=== PATIENT | male | born 1955 | race Caucasian/White ===

== ENCOUNTER 2017-09-17 18:28 | Inpatient (IN) ==
--- NOTE | 2017-09-17 19:04 | Emergency Department Note ---
ED Disposition Clinical Impression: Acute kidney injury (nontraumatic), Alcoholic hepatitis without ascites Cellulitis Qualifiers: Site of cellulitis: extremity Site of cellulitis of extremity: lower extremity Laterality: unspecified laterality Qualified Code(s): L03.119 - Cellulitis of unspecified part of limb Disposition: Still a Patient Condition on Discharge: Fair Referrals: Noemy Hawthorne PA [Primary Care Provider] - Time of Disposition: 20:01 - Critical Care Critical Care Time: No Attestation: On 09/17/17, the high probability of a clinically significant, sudden or life threatening deterioration of the following system(s) required my full and direct attention, intervention and personal management. The time I documented below is in addition to time spent performing reported procedures but includes the following listed in this critical care notation. Medical Decision Making - Medical Records Medical records reviewed: Yes: I reviewed the patient's medical records. - Layo Inquiry Pt receiving controlled substance: No Layo was queried for this patient: No Vital Signs: 09/17/17 18:28 Temperature 98.6 F Temperature Source Oral Pulse Rate [Right Radial] 113 H Respiratory Rate 18 Blood Pressure [Right Arm] 95/58 Blood Pressure Mean [Right Arm] 70 Blood Pressure Source [Right Arm] Automatic Cuff Blood Pressure Position [Right Arm] Sitting 02 Sat by Pulse Oximetry 94 L Oxygen Delivery Method Room Air - Lab Data Lab results reviewed: Yes: I reviewed the patient's lab results. Lab Results 09/17/17 19:05: WBC 11.9 H, RBC 4.25 L, Hgb 13.9 L, Hct 41.3 L, MCV 97.2 H, MCH 32.8 H, MCHC 33.7, RDW 12.7, Plt Count 237, MPV 8.6, Neut % (Auto) 73.1, Lymph % (Auto) 19.9, [place] % (Auto) 5.6, Eos % (Auto) 1.0, Baso % (Auto) 0.4, Neut # ( Auto) 8.7 H, Lymph # (Auto) 2.4, [place] # (Auto) 0.7, Eos # (Auto) 0.1, Baso # ( Auto) 0.1 09/17/17 19:05: Sodium 132 L, Potassium 4.8, Chloride 98, Carbon Dioxide 20 L, Anion Gap 18.8 H, BUN 27 H, Creatinine 2.32 H, Estimated Creat Clear 48, Estimated GFR 29 L, Est GFR ( Amer) 35 L, Glucose 128 H, Calcium 9.2, Total Bilirubin 0.5, AST 91 H, ALT 84 H, Alkaline Phosphatase 138 H, Total Protein 8.4 H, Albumin 3.0 L, Globulin 5.4 H, Albumin/Globulin Ratio 0.6 L 09/17/17 19:05: Lactic Acid 1.9 09/17/17 19:05: Plasma/Serum Alcohol 0 Result diagrams: 09/17/17 19:05 09/17/17 19:05 Orders (Tests/Meds): ORDERS Category Date Time Status Tibia/fibula XR left 2 views [XR tibia fibula LT 2V] Exams 09/17/17 18:48 Taken Stat XR tibia fibula RT 2V Stat Exams 09/17/17 18:48 Taken Urinalysis and Microscopic Stat Lab 09/17/17 19:21 Ordered Blood Culture Stat Micro 09/17/17 19:08 Received Wound Culture and Gram Stain Stat Micro 09/17/17 19:23 Received Wound Culture and Gram Stain Stat Micro 09/17/17 19:23 Received - Radiology Data #1 Image(s): Tib/Fib Image Reviewed: Yes I reviewed the patient's radiology results, Yes I reviewed the patient's radiology image Preliminary Findings: Normal/NAD Skin/Abscess/FB HPI - General Chief complaint: Extremity Injury, Lower Stated complaint: Right leg pain Time Seen by Provider: 09/17/17 19:04 Mode of Arrival: Wheelchair Limitations: Physical Limitations Description of Symptoms (Recalled from ER Triage Doc. by RN): BILATERALLY FEET SWELLING, RED, VERY MALODOROUS. YELLOW AND WHITE SCABS NOTED. PT UNABLE TO WALK. - History of Present Illness HPI narrative: Pt comes to the ED with redness and swelling of both feet and both lower legs with foul smelling drainage for about 4 to 5 weeks. He normally sees one of Dr. Webster's PHYSIOTHERAPY AIDE 's but has not seen anyone in about 4 months and he says this started about 3 to 4 months ago. He has not been running any fevers and the family talked him into coming to the ED today but he says he can get up and go to the bathroom by himself but family says he has kept his pants and shoes and socks on for the past 3 to 4 months and they were not aware of him having any problem until they saw him today. He has never been a smoker but he does drink about 4 to5 24 ounce beers each day . he denies any fever at all and no SOA MD complaint: rash, other (cellulitis of both lower legs with foul smelling drainage but says he is not a diabetic) - Related Data Home Medications Medication Instructions Recorded Confirmed atorvastatin 10 mg tablet PO 30 Days #30 04/10/17 ergocalciferol (vitamin D2) 50,000 PO 28 Days #8 04/10/17 unit capsule Previous Rx's Medication Instructions Recorded calcium carbonate-vitamin D3 600 1 cap PO .COMPLEX 90 Days #90 cap 07/05/17 mg (1,500 mg)-400 unit capsule ergocalciferol (vitamin D2) 50,000 50,000 unit PO QWEEK 90 Days #14 08/14/17 unit capsule cap losartan 100 mg tablet 100 mg PO DAILY #90 tab 08/14/17 Allergies Allergy/AdvReac Type Severity Reaction Status Date / Time No Known Allergies Allergy Verified 09/17/17 18:47 [facility] History I have reviewed the patient's past medical history: Yes Medical History: Reports:: Cancer (SKIN CANCER ON HEAD), Hyperlipidemia, Hypertension Other Surgeries: Yes: Skin Cancer Excision - Social History Smoking Status: Never smoker Alcohol Intake: current Alcohol Intake Frequency:: 3 or more drinks per day Substance Use Type: denies use - Psychiatric History Expresses thoughts of harming self/others: None Suicide Plan Description: No Plan Family Hx:: Hypertension, Hyperlipidemia, Cancer ROS Obtained: Yes All systems reviewed & no additional complaints Physical Exam - General General appearance: alert, in no apparent distress - Head Head exam: atraumatic - Eye Eye exam: Present: normal appearance - ENT ENT exam: Present: normal exam - Neck Neck exam: Present: normal inspection - Chest Chest inspection: Present: normal inspection - Respiratory Respiratory exam: Present: normal lung sounds bilaterally - Cardiovascular Cardiovascular exam: Present: regular rate, normal rhythm - Abdominal Exam Abdominal exam: Present: soft - Neurological Exam Neurological exam: Present: alert, oriented X3 - Psychiatric Psychiatric exam: Present: normal affect - Skin Skin exam: Present: other (cellulitis and swelling of both lower legs with purulent weeping from both legs and both feet...I can not palpate pules in feet but will check with Doppler)
[2017-09-17 19:24] LABS: Basophils # 0.1 K/mm3 (0-0.2); Basophils % 0.4 % (0.1-2.0); Eosinophils # 0.1 K/mm3 (0.0-0.4); Hematocrit 41.3 % (42.0-52.0); Hemoglobin 13.9 g/dL (14.1-18.0); Lymphocytes # 2.4 K/mm3 (0.7-4.5); Lymphocytes % 19.9 K/mm3 (10-50); Mean Corpuscular HGB Conc 33.7 g/dL (31.8-35.4); Mean Corpuscular Hemoglobin 32.8 pg (27.0-31.2); Mean Corpuscular Volume 97.2 fl (80-94); Mean Platelet Volume 8.6 fl (7.4-10.4); Monocytes # 0.7 K/mm3 (0.1-1.0); Monocytes % 5.6 % (1.7-9.3); Neutrophils # 8.7 K/mm3 (1.8-7.8); Neutrophils % 73.1 % (37.0-80.0); Platelet Count 237 K/mm3 (142-424); Red Blood Count 4.25 M/mm3 (4.60-6.20); Red Cell Distribution Width 12.7 % (11.5-17.5); White Blood Count 11.9 K/mm3 (4.8-10.8)
[2017-09-17 19:41] LABS: Albumin/Globulin Ratio 0.6 (1.1-1.8); Anion Gap 18.8 mEq/L (5-15); Bilirubin,Total 0.5 mg/dL (0.2-1.0); Calcium 9.2 mg/dL (8.5-10.1); Globulin 5.4 gm/dl (1.3-3.2); Potassium 4.8 mmoL/L (3.5-5.1); Total Protein,Serum 8.4 gm/dL (6.4-8.2)
--- NOTE | 2017-09-17 20:27 | History & Physical Report ---
*Admission Date: 09/17/17 *Chief complaint: swollen legs *History of present illness: this wm with progressive swollen legst comes to the ED with redness and swelling of both feet and both lower legs with foul smelling drainage for about 4 to 5 weeks. He normally sees one of Dr. Webster's [employer] P[employer] CEMENTER 's but has not seen anyone in about 4 months and he says this started about 3 to 4 months ago. He has not been running any fevers and the family talked him into coming to the ED today but he says he can get up and go to the bathroom by himself but family says he has kept his pants and shoes and socks on for the past 3 to 4 months and they were not aware of him having any problem until they saw him today. He has never been a smoker but he does drink about 4 to5 24 ounce beers each day . he denies any fever at all and no SOA MD complaint: rash, other (cellulitis of both lower legs with foul smelling drainage but says he is not a diabetic) [facility] History I have reviewed the patient's past medical history: Yes Medical History: Reports:: Cancer (SKIN CANCER ON HEAD), Hyperlipidemia, Hypertension Other Surgeries: Yes: Skin Cancer Excision - *Social History Smoking Status: Never smoker Alcohol Intake: current Alcohol Intake Frequency:: 3 or more drinks per day Substance Use Type: denies use - Psychiatric History Expresses thoughts of harming self/others: None Suicide Plan Description: No Plan *Family Hx:: Hypertension, Hyperlipidemia, Cancer Review of Systems - Review of Systems Review of systems:: pertinent systems reviewed and negative unless documented below - Constitutional Denies fever(s) - Eyes Denies change in vision - ENT Denies headache(s), Denies dizziness - *Cardiovascular Reports leg swelling, Denies chest pain - *Respiratory Denies cough, Denies shortness of breath, Denies coughing up blood - *Gastrointestinal Denies abdominal pain - *Genitourinary Denies blood in urine - *Musculoskeletal Reports joint pain - Integumentary/Breasts Reports other (changes lower ext ), Denies rash - *Neurologic Denies seizure-like activity - Psychiatric Denies thoughts of hurting/killing yourself Meds Home Medications Medication Instructions Recorded Confirmed Type atorvastatin 10 mg tablet PO 30 Days #30 04/10/17 History ergocalciferol (vitamin D2) 50,000 PO 28 Days #8 04/10/17 History unit capsule Allergies Allergy/AdvReac Type Severity Reaction Status Date / Time No Known Allergies Allergy Verified 09/17/17 18:47 Exam Vital signs and Labs for Last 24 Hours: Temp Pulse Resp BP Pulse Ox 98.6 F 113 H 18 95/58 94 L 09/17/17 18:28 09/17/17 18:28 09/17/17 18:28 09/17/17 18:28 09/17/17 18:28 Laboratory Results - last 24 hr 09/17/17 19:05: WBC 11.9 H, RBC 4.25 L, Hgb 13.9 L, Hct 41.3 L, MCV 97.2 H, MCH 32.8 H, MCHC 33.7, RDW 12.7, Plt Count 237, MPV 8.6, Neut % (Auto) 73.1, Lymph % (Auto) 19.9, [place] % (Auto) 5.6, Eos % (Auto) 1.0, Baso % (Auto) 0.4, Neut # ( Auto) 8.7 H, Lymph # (Auto) 2.4, [place] # (Auto) 0.7, Eos # (Auto) 0.1, Baso # ( Auto) 0.1 09/17/17 19:05: Sodium 132 L, Potassium 4.8, Chloride 98, Carbon Dioxide 20 L, Anion Gap 18.8 H, BUN 27 H, Creatinine 2.32 H, Estimated Creat Clear 48, Estimated GFR 29 L, Est GFR ( Amer) 35 L, Glucose 128 H, Calcium 9.2, Total Bilirubin 0.5, AST 91 H, ALT 84 H, Alkaline Phosphatase 138 H, Total Protein 8.4 H, Albumin 3.0 L, Globulin 5.4 H, Albumin/Globulin Ratio 0.6 L 09/17/17 19:05: Lactic Acid 1.9 09/17/17 19:05: Plasma/Serum Alcohol 0 I & O for Last 24 hours: Intake & Output 09/15/17 09/16/17 09/17/17 09/18/17 11:59 11:59 11:59 11:59 Weight 222 lb - Constitutional no acute distress, obese - *Routine HEENT Exam Head: Present: normocephalic Eye: Present: EOMI, PERRL. Absent: conjunctival icterus ENT: Present: mucous membranes dry - *Routine Neck Exam Present: supple - *Routine Respiratory Exam Present: decreased breath sounds - *Routine Cardiovascular Exam Present: RRR, murmur - *Routine Abdominal Exam Present: soft - *Routine Extremities Exam Present: edema Comments: reddness and swelling bilat - dec pulse - *Routine Skin Exam Present: erythema - *Routine Neurological Exam Present: alert, oriented X3, CN II-XII intact - Routine Psychiatric Exam Present: normal affect H&P: Result - Labs Labs: Short CBC 09/17/17 Range/Units 19:05 WBC 11.9 H (4.8-10.8) K/mm3 Hgb 13.9 L (14.1-18.0) g/dL Hct 41.3 L (42.0-52.0) % Plt Count 237 (142-424) K/mm3 BMP 09/17/17 19:05 Sodium 132 L Potassium 4.8 Chloride 98 Carbon Dioxide 20 L BUN 27 H Creatinine 2.32 H Glucose 128 H Calcium 9.2 Liver Function 09/17/17 Range/Units 19:05 Total Bilirubin 0.5 (0.2-1.0) mg/dL AST 91 H (15-37) U/L ALT 84 H (12-78) U/L Alkaline Phosphatase 138 H (46-116) U/L Albumin 3.0 L (3.4-5.0) gm/dL Assessment and Plan (1) Renal insufficiency Current visit: Yes Status: Acute Category: Medical Code(s): N28.9 - Disorder of kidney and ureter, unspecified (2) Cellulitis Current visit: Yes Status: Acute Qualifiers: Site of cellulitis: extremity Site of cellulitis of extremity: lower extremity Laterality: unspecified laterality Qualified Code(s): L03.119 - Cellulitis of unspecified part of limb Category: Medical Code(s): L03.90 - Cellulitis, unspecified (3) Alcohol abuse Current visit: Yes Status: Acute Category: Social Hx Code(s): F10.10 - Alcohol abuse, uncomplicated
[2017-09-18 00:30] LABS: Microscopic, Urine URINE MICROSCOPIC (MICROSCOPIC)
[2017-09-18 00:44] LABS: Appearance,Urine CLEAR (Clear); Bilirubin,Urine Negative (Negative); Blood, Urine Negative (Negative); Color,Urine YELLOW (Yellow); Glucose,Urine (UA) Negative (Negative); Ketones,Urine Negative (Negative); Leukocyte Esterase,Urine Negative (Negative); Protein,Urine Negative (Negative); Specific Gravity, Urine <= 1.005 (1.005-1.030); Urobilinogen,Urine 0.2 EU/dl (0.2)
[2017-09-18 00:48] LABS: Amorphous Sediment,Urine Trace /lpf
[2017-09-18 06:00] LABS: Basophils % 0.2 % (0.1-2.0); Eosinophils # 0.1 K/mm3 (0.0-0.4); Eosinophils % 1.1 % (0.1-12.0); Hematocrit 33.5 % (42.0-52.0); Lymphocytes # 1.9 K/mm3 (0.7-4.5); Lymphocytes % 20.8 K/mm3 (10-50); Mean Corpuscular HGB Conc 33.1 g/dL (31.8-35.4); Mean Corpuscular Hemoglobin 32.4 pg (27.0-31.2); Mean Corpuscular Volume 97.9 fl (80-94); Mean Platelet Volume 8.6 fl (7.4-10.4); Monocytes # 0.7 K/mm3 (0.1-1.0); Monocytes % 8.2 % (1.7-9.3); Neutrophils # 6.3 K/mm3 (1.8-7.8); Neutrophils % 69.8 % (37.0-80.0); Platelet Count 184 K/mm3 (142-424); Red Blood Count 3.43 M/mm3 (4.60-6.20); Red Cell Distribution Width 12.6 % (11.5-17.5); White Blood Count 9.1 K/mm3 (4.8-10.8)
[2017-09-18 06:01] LABS: Hemoglobin 11.1 g/dL (14.1-18.0)
[2017-09-18 06:12] LABS: Anion Gap 14.9 mEq/L (5-15); Calcium 8.3 mg/dL (8.5-10.1); Potassium 4.9 mmoL/L (3.5-5.1)
--- NOTE | 2017-09-18 07:29 | Pharmacy Consult Notes ---
[facility] Pharmacy VTE Monitoring - Patient Demographics Admission date: 09/17/17 Report Date: 09/18/17 Time: 07:29 Allergies/Adverse Reactions: Patient Allergies No Known Allergies Allergy (Verified 09/17/17 18:47) Height: 1.65 m Weight: 112.094 kg Patient Problems: Current Active Problems Cellulitis (Acute) Acute kidney injury (nontraumatic) (Acute) Alcoholic hepatitis without ascites (Acute) Renal insufficiency (Acute) Alcohol abuse (Acute) - VTE Risk Labs: VTE Related Lab Results Hgb 11.1 g/dL (14.1-18.0) L D 09/18/17 05:35 Hct 33.5 % (42.0-52.0) L 09/18/17 05:35 Plt Count 184 K/mm3 (142-424) 09/18/17 05:35 BUN 27 mg/dL (7-18) H 09/18/17 05:35 Creatinine 2.10 mg/dL (0.70-1.30) H 09/18/17 05:35 Estimated Creat Clear 59 mL/min (0-300) 09/18/17 05:35 VTE Score: 5 VTE Risk Level: Low Risk - Prophylaxis VTE Prophylaxis Ordered?: Yes Types of VTE Prophylaxis: Pharmacological Pharmacologic Type: Enoxaparin - VTE Diagnosis Confirmed Treatment or plan recommended: Continue Current Treatment
--- NOTE | 2017-09-18 08:22 | Progress Note ---
Internal Medicine - PN: Subj *Date: 09/18/17 *Time: 08:18 Interval history: doing better but still has sig ambulation issues Exam Vital signs and Labs for Last 24 Hours: Temp Pulse Resp BP Pulse Ox 98.4 F 91 H 18 108/44 95 09/18/17 07:38 09/18/17 07:38 09/18/17 07:38 09/18/17 07:38 09/18/17 07:38 Laboratory Results - last 24 hr 09/17/17 19:05: WBC 11.9 H, RBC 4.25 L, Hgb 13.9 L, Hct 41.3 L, MCV 97.2 H, MCH 32.8 H, MCHC 33.7, RDW 12.7, Plt Count 237, MPV 8.6, Neut % (Auto) 73.1, Lymph % (Auto) 19.9, [place] % (Auto) 5.6, Eos % (Auto) 1.0, Baso % (Auto) 0.4, Neut # ( Auto) 8.7 H, Lymph # (Auto) 2.4, [place] # (Auto) 0.7, Eos # (Auto) 0.1, Baso # ( Auto) 0.1 09/17/17 19:05: Sodium 132 L, Potassium 4.8, Chloride 98, Carbon Dioxide 20 L, Anion Gap 18.8 H, BUN 27 H, Creatinine 2.32 H, Estimated Creat Clear 48, Estimated GFR 29 L, Est GFR ( Amer) 35 L, Glucose 128 H, Calcium 9.2, Total Bilirubin 0.5, AST 91 H, ALT 84 H, Alkaline Phosphatase 138 H, Total Protein 8.4 H, Albumin 3.0 L, Globulin 5.4 H, Albumin/Globulin Ratio 0.6 L 09/17/17 19:05: Lactic Acid 1.9 09/17/17 19:05: Plasma/Serum Alcohol 0 09/18/17 00:15: Urine Color Yellow, Urine Appearance Clear, Urine pH 6.0, Ur Specific [place] <= 1.005, Urine Protein Negative, Urine Glucose (UA) Negative, Urine Ketones Negative, Urine Blood Negative, Urine Nitrate Negative, Urine Bilirubin Negative, Urine Urobilinogen 0.2, Ur Leukocyte Esterase Negative, Urine WBC 5-10, Amorphous Sediment Trace 09/18/17 05:35: WBC 9.1, RBC 3.43 L, Hgb 11.1 L D, Hct 33.5 L, MCV 97.9 H, MCH 32.4 H, MCHC 33.1, RDW 12.6, Plt Count 184, MPV 8.6, Neut % (Auto) 69.8, Lymph % (Auto) 20.8, [place] % (Auto) 8.2, Eos % (Auto) 1.1, Baso % (Auto) 0.2, Neut # ( Auto) 6.3, Lymph # (Auto) 1.9, [place] # (Auto) 0.7, Eos # (Auto) 0.1, Baso # (Auto ) 0.0 09/18/17 05:35: Sodium 135 L, Potassium 4.9, Chloride 101, Carbon Dioxide 24, Anion Gap 14.9, BUN 27 H, Creatinine 2.10 H, Estimated Creat Clear 59, Estimated GFR 32 L, Est GFR ( Amer) 39 L, Glucose 110 H, Calcium 8.3 L, Magnesium 2.1 I & O for Last 24 hours: Intake & Output 09/15/17 09/16/17 09/17/17 09/18/17 11:59 11:59 11:59 11:59 Output Total 550 / 550 Balance -550 / -550 Weight 247 lb 2 oz Microbiology Reports for the Last 24 Hours: Microbiology 09/17/17 19:23 Leg,Right Gram Stain - Final 09/17/17 19:23 Leg,Right Wound Culture - Preliminary 09/17/17 19:23 Leg,Left Gram Stain - Final 09/17/17 19:23 Leg,Left Wound Culture - Preliminary Gram Negative Rods Gram Negative Rods#2 - Constitutional no acute distress - *Routine HEENT Exam Head: Present: normocephalic Eye: Present: EOMI, PERRL ENT: Present: mucous membranes dry - *Routine Neck Exam Present: supple - *Routine Respiratory Exam Absent: decreased breath sounds - *Routine Cardiovascular Exam Present: RRR, murmur - *Routine Abdominal Exam Present: soft - *Routine Extremities Exam Present: edema - *Routine Skin Exam Comments: sig toe nail - *Routine Neurological Exam Present: oriented X3, CN II-XII intact - Routine Psychiatric Exam Present: normal affect Assessment and Plan (1) Renal insufficiency Current visit: Yes Status: Acute Category: Medical Code(s): N28.9 - Disorder of kidney and ureter, unspecified (2) Cellulitis Current visit: Yes Status: Acute Qualifiers: Site of cellulitis: extremity Site of cellulitis of extremity: lower extremity Laterality: unspecified laterality Qualified Code(s): L03.119 - Cellulitis of unspecified part of limb Category: Medical Code(s): L03.90 - Cellulitis, unspecified (3) Alcohol abuse Current visit: Yes Status: Acute Category: Social Hx Code(s): F10.10 - Alcohol abuse, uncomplicated
--- NOTE | 2017-09-18 09:31 | Pharmacy Consult Notes ---
- Pharmacy Consult Date: 09/18/17 Time: 09:30 Referring provider: DR. SULTANA Reason for Consult:: VANCOMYCIN DOSING Allergies and ADEs:: Allergies Allergy/AdvReac Type Severity Reaction Status Date / Time No Known Allergies Allergy Verified 09/17/17 18:47 Home Medications:: Home Medications Medication Instructions Recorded Confirmed Type atorvastatin 10 mg tablet 10 mg PO DAILY 30 Days #30 04/10/17 09/17/17 History Metoprolol Succinate 25 mg PO DAILY 09/17/17 09/17/17 History Calcium Carbonate/Vitamin D3 1 each PO DAILY 09/18/17 09/18/17 History [Calcium 600 + Vit D 400 Softgl] Ergocalciferol (Vitamin D2) 50,000 unit PO WEEKLY 09/18/17 09/18/17 History [Vitamin D2] Losartan Potassium [Cozaar] 100 mg PO DAILY 09/18/17 09/18/17 History Height: 1.65 m Weight: 112.094 kg Laboratory Results:: Laboratory Results - last 24 hr 09/17/17 19:05: WBC 11.9 H, RBC 4.25 L, Hgb 13.9 L, Hct 41.3 L, MCV 97.2 H, MCH 32.8 H, MCHC 33.7, RDW 12.7, Plt Count 237, MPV 8.6, Neut % (Auto) 73.1, Lymph % (Auto) 19.9, [place] % (Auto) 5.6, Eos % (Auto) 1.0, Baso % (Auto) 0.4, Neut # ( Auto) 8.7 H, Lymph # (Auto) 2.4, [place] # (Auto) 0.7, Eos # (Auto) 0.1, Baso # ( Auto) 0.1 09/17/17 19:05: Sodium 132 L, Potassium 4.8, Chloride 98, Carbon Dioxide 20 L, Anion Gap 18.8 H, BUN 27 H, Creatinine 2.32 H, Estimated Creat Clear 48, Estimated GFR 29 L, Est GFR ( Amer) 35 L, Glucose 128 H, Calcium 9.2, Total Bilirubin 0.5, AST 91 H, ALT 84 H, Alkaline Phosphatase 138 H, Total Protein 8.4 H, Albumin 3.0 L, Globulin 5.4 H, Albumin/Globulin Ratio 0.6 L 09/17/17 19:05: Lactic Acid 1.9 09/17/17 19:05: Plasma/Serum Alcohol 0 09/18/17 00:15: Urine Color Yellow, Urine Appearance Clear, Urine pH 6.0, Ur Specific [place] <= 1.005, Urine Protein Negative, Urine Glucose (UA) Negative, Urine Ketones Negative, Urine Blood Negative, Urine Nitrate Negative, Urine Bilirubin Negative, Urine Urobilinogen 0.2, Ur Leukocyte Esterase Negative, Urine WBC 5-10, Amorphous Sediment Trace 09/18/17 05:35: WBC 9.1, RBC 3.43 L, Hgb 11.1 L D, Hct 33.5 L, MCV 97.9 H, MCH 32.4 H, MCHC 33.1, RDW 12.6, Plt Count 184, MPV 8.6, Neut % (Auto) 69.8, Lymph % (Auto) 20.8, [place] % (Auto) 8.2, Eos % (Auto) 1.1, Baso % (Auto) 0.2, Neut # ( Auto) 6.3, Lymph # (Auto) 1.9, [place] # (Auto) 0.7, Eos # (Auto) 0.1, Baso # (Auto ) 0.0 09/18/17 05:35: Sodium 135 L, Potassium 4.9, Chloride 101, Carbon Dioxide 24, Anion Gap 14.9, BUN 27 H, Creatinine 2.10 H, Estimated Creat Clear 59, Estimated GFR 32 L, Est GFR ( Amer) 39 L, Glucose 110 H, Calcium 8.3 L, Magnesium 2.1 Medical History: Reports:: Cancer (SKIN CANCER ON HEAD), Hyperlipidemia, Hypertension Denies:: Diabetes Mellitus Type 1, Diabetes Mellitus Type 2 Assessment and Plan (1) Renal insufficiency Current visit: Yes Status: Acute Category: Medical Code(s): N28.9 - Disorder of kidney and ureter, unspecified (2) Cellulitis Current visit: Yes Status: Acute Qualifiers: Site of cellulitis: extremity Site of cellulitis of extremity: lower extremity Laterality: unspecified laterality Qualified Code(s): L03.119 - Cellulitis of unspecified part of limb Category: Medical Code(s): L03.90 - Cellulitis, unspecified (3) Alcohol abuse Current visit: Yes Status: Acute Category: Social Hx Code(s): F10.10 - Alcohol abuse, uncomplicated - Assessment and plan all Dx Assessment and Plan for all problems:: BASED ON PATIENT FACTORS, RECOMMEND INITIATING VANCOMYCIN 1,500MG IV Q24H. PHARMACY WILL CONTINUE TO MONITOR AND WILL ADJUST DOSE APPROPRIATE ONCE TROUGH LEVEL IS OBTAINED. -LYUBOV KIMBALL, [place]
--- NOTE | 2017-09-18 12:53 | Consult Report ---
*Admission Date: 09/17/17 *Chief complaint: B/L LE Cellulitis *History of present illness: Mr. Oh is a 62 y/o male who presents for b/l LE cellulitis. He reports redness and swelling x 3-4 weeks. He denies N/V, F/C, SOB/CP. He denies purulence or drainage. He has not been cleaning the legs and does not recall last time nails cut. He states the "legs are sensitive". Per Dr. Webster 09/17/17: this wm with progressive swollen legst comes to the ED with redness and swelling of both feet and both lower legs with foul smelling drainage for about 4 to 5 weeks. He normally sees one of Dr. Webster's CARTOGRAPHY TECHNICIAN 's but has not seen anyone in about 4 months and he says this started about 3 to 4 months ago. He has not been running any fevers and the family talked him into coming to the ED today but he says he can get up and go to the bathroom by himself but family says he has kept his pants and shoes and socks on for the past 3 to 4 months and they were not aware of him having any problem until they saw him today. He has never been a smoker but he does drink about 4 to5 24 ounce beers each day . he denies any fever at all and no SOA MD complaint: rash, other (cellulitis of both lower legs with foul smelling drainage but says he is not a diabetic) Review of Systems - Review of Systems Review of systems:: pertinent systems reviewed and negative unless documented below - Constitutional Denies chills, Denies fatigue - Eyes Denies blurry vision - ENT Denies abnormal hearing - *Cardiovascular Denies chest pain, Denies shortness of breath - *Respiratory Denies shortness of breath - *Gastrointestinal Denies abdominal pain - *Genitourinary Denies difficulty urinating - *Musculoskeletal Reports limited joint movement, Denies numbness, Denies tingling - Integumentary/Breasts Reports redness, Reports sores - *Neurologic Denies headache(s), Denies seizure-like activity, Denies dizziness [facility] History Medical History: Reports:: Cancer (SKIN CANCER ON HEAD), Hyperlipidemia, Hypertension Denies:: Diabetes Mellitus Type 1, Diabetes Mellitus Type 2 Other Medical History: Reports: Cataracts (R eye) Laterality Cases: Right: Cataract Other Surgeries: Yes: Hernia Repair, Skin Cancer Excision (Head, Lip) - *Social History Educational Level: Attended High School Smoking Status: Never smoker Alcohol Intake: current Alcohol Intake Frequency:: 3 or more drinks per day Substance Use Type: denies use Occupational Status: disabled Housing: other Household Members: spouse - Psychiatric History Expresses thoughts of harming self/others: None Suicide Plan Description: No Plan *Family Hx:: Cancer, Heart Attack, Hyperlipidemia, Hypertension Meds Home Medications Medication Instructions Recorded Confirmed Type atorvastatin 10 mg tablet 10 mg PO DAILY 30 Days #30 04/10/17 09/17/17 History Metoprolol Succinate 25 mg PO DAILY 09/17/17 09/17/17 History Calcium Carbonate/Vitamin D3 1 each PO DAILY 09/18/17 09/18/17 History [Calcium 600 + Vit D 400 Softgl] Ergocalciferol (Vitamin D2) 50,000 unit PO WEEKLY 09/18/17 09/18/17 History [Vitamin D2] Losartan Potassium [Cozaar] 100 mg PO DAILY 09/18/17 09/18/17 History Allergies Allergy/AdvReac Type Severity Reaction Status Date / Time No Known Allergies Allergy Verified 09/17/17 18:47 Exam Vital signs and Labs for Last 24 Hours: Temp Pulse Resp BP Pulse Ox 98.4 F 91 H 18 108/44 95 09/18/17 07:38 09/18/17 07:38 09/18/17 07:38 09/18/17 07:38 09/18/17 07:38 Laboratory Results - last 24 hr 09/17/17 19:05: WBC 11.9 H, RBC 4.25 L, Hgb 13.9 L, Hct 41.3 L, MCV 97.2 H, MCH 32.8 H, MCHC 33.7, RDW 12.7, Plt Count 237, MPV 8.6, Neut % (Auto) 73.1, Lymph % (Auto) 19.9, [place] % (Auto) 5.6, Eos % (Auto) 1.0, Baso % (Auto) 0.4, Neut # ( Auto) 8.7 H, Lymph # (Auto) 2.4, [place] # (Auto) 0.7, Eos # (Auto) 0.1, Baso # ( Auto) 0.1 09/17/17 19:05: Sodium 132 L, Potassium 4.8, Chloride 98, Carbon Dioxide 20 L, Anion Gap 18.8 H, BUN 27 H, Creatinine 2.32 H, Estimated Creat Clear 48, Estimated GFR 29 L, Est GFR ( Amer) 35 L, Glucose 128 H, Calcium 9.2, Total Bilirubin 0.5, AST 91 H, ALT 84 H, Alkaline Phosphatase 138 H, Total Protein 8.4 H, Albumin 3.0 L, Globulin 5.4 H, Albumin/Globulin Ratio 0.6 L 09/17/17 19:05: Lactic Acid 1.9 09/17/17 19:05: Plasma/Serum Alcohol 0 09/18/17 00:15: Urine Color Yellow, Urine Appearance Clear, Urine pH 6.0, Ur Specific [place] <= 1.005, Urine Protein Negative, Urine Glucose (UA) Negative, Urine Ketones Negative, Urine Blood Negative, Urine Nitrate Negative, Urine Bilirubin Negative, Urine Urobilinogen 0.2, Ur Leukocyte Esterase Negative, Urine WBC 5-10, Amorphous Sediment Trace 09/18/17 05:35: WBC 9.1, RBC 3.43 L, Hgb 11.1 L D, Hct 33.5 L, MCV 97.9 H, MCH 32.4 H, MCHC 33.1, RDW 12.6, Plt Count 184, MPV 8.6, Neut % (Auto) 69.8, Lymph % (Auto) 20.8, [place] % (Auto) 8.2, Eos % (Auto) 1.1, Baso % (Auto) 0.2, Neut # ( Auto) 6.3, Lymph # (Auto) 1.9, [place] # (Auto) 0.7, Eos # (Auto) 0.1, Baso # (Auto ) 0.0 09/18/17 05:35: Sodium 135 L, Potassium 4.9, Chloride 101, Carbon Dioxide 24, Anion Gap 14.9, BUN 27 H, Creatinine 2.10 H, Estimated Creat Clear 59, Estimated GFR 32 L, Est GFR ( Amer) 39 L, Glucose 110 H, Calcium 8.3 L, Magnesium 2.1 I & O for Last 24 hours: Intake & Output 09/16/17 09/17/17 09/18/17 09/19/17 11:59 11:59 11:59 11:59 Output Total 550 / 550 Balance -550 / -550 Weight 247 lb 2 oz Microbiology Reports for the Last 24 Hours: Microbiology 09/17/17 19:23 Leg,Right Gram Stain - Final 09/17/17 19:23 Leg,Right Wound Culture - Preliminary 09/17/17 19:23 Leg,Left Gram Stain - Final 09/17/17 19:23 Leg,Left Wound Culture - Preliminary Gram Negative Rods Gram Negative Rods#2 - *Routine HEENT Exam Head: Present: normocephalic - *Routine Neck Exam Absent: JVD - *Routine Respiratory Exam Absent: respiratory distress - *Routine Cardiovascular Exam Absent: JVD - *Routine Abdominal Exam Present: soft. Absent: guarding - *Routine Rectal Exam Patient deferred: visual exam - *Routine Exam Patient deferred: penile exam - *Routine Extremities Exam Present: edema, pulses intact, normal capillary refill. Absent: amputation - *Routine Skin Exam Present: erythema, warm. Absent: gangrene, ecchymosis - *Routine Neurological Exam Present: alert, moving all extremities - Detailed Lower Extremity Exam Lower leg: Bilateral erythema Ankle: Bilateral erythema Foot/Toes: Bilateral erythema Comments: B/L LE edema and erythema noted. Pain with palpation on the legs. 2+ pitting edema noted. Multiple smalll areas of popped blisters noted. No deep infection. No purulence or drainage. Maggots noted to the right calf x 1, in between the right toes x around 20+. No deep interspaces ulcers. Toenails thick and enlongated, onchogryphosis with fungus. No pain to palpation of the feet or toes. Palpable pedal pulses, CFT wnl. Light touch sensation intact. Results - Labs Result Diagrams: 09/18/17 05:35 09/18/17 05:35 Labs: Abnormal lab results 09/17/17 09/17/17 09/18/17 Range/Units 19:05 19:05 05:35 WBC 11.9 H (4.8-10.8) K/mm3 RBC 4.25 L 3.43 L (4.60-6.20) M/mm3 Hgb 13.9 L 11.1 L D (14.1-18.0) g/dL Hct 41.3 L 33.5 L (42.0-52.0) % MCV 97.2 H 97.9 H (80-94) fl MCH 32.8 H 32.4 H (27.0-31.2) pg Neut # (Auto) 8.7 H (1.8-7.8) K/mm3 Sodium 132 L (136-145) mmol/L Carbon Dioxide 20 L (21.0-32.0) mmol/L Anion Gap 18.8 H (5-15) mEq/L BUN 27 H (7-18) mg/dL Creatinine 2.32 H (0.70-1.30) mg/dL Estimated GFR 29 L (>60) ml/min Est GFR ( Amer) 35 L (>60) ML/MIN Glucose 128 H (74-106) mg/dL Calcium (8.5-10.1) mg/dL AST 91 H (15-37) U/L ALT 84 H (12-78) U/L Alkaline Phosphatase 138 H (46-116) U/L Total Protein 8.4 H (6.4-8.2) gm/dL Albumin 3.0 L (3.4-5.0) gm/dL Globulin 5.4 H (1.3-3.2) gm/dl Albumin/Globulin Ratio 0.6 L (1.1-1.8) 09/18/17 Range/Units 05:35 WBC (4.8-10.8) K/mm3 RBC (4.60-6.20) M/mm3 Hgb (14.1-18.0) g/dL Hct (42.0-52.0) % MCV (80-94) fl MCH (27.0-31.2) pg Neut # (Auto) (1.8-7.8) K/mm3 Sodium 135 L (136-145) mmol/L Carbon Dioxide (21.0-32.0) mmol/L Anion Gap (5-15) mEq/L BUN 27 H (7-18) mg/dL Creatinine 2.10 H (0.70-1.30) mg/dL Estimated GFR 32 L (>60) ml/min Est GFR ( Amer) 39 L (>60) ML/MIN Glucose 110 H (74-106) mg/dL Calcium 8.3 L (8.5-10.1) mg/dL AST (15-37) U/L ALT (12-78) U/L Alkaline Phosphatase (46-116) U/L Total Protein (6.4-8.2) gm/dL Albumin (3.4-5.0) gm/dL Globulin (1.3-3.2) gm/dl Albumin/Globulin Ratio (1.1-1.8) H & H 09/17/17 09/18/17 Range/Units 19:05 05:35 Hgb 13.9 L 11.1 L D (14.1-18.0) g/dL Hct 41.3 L 33.5 L (42.0-52.0) % All other labs normal. Assessment and Plan (1) Renal insufficiency Current visit: Yes Status: Acute Category: Medical Code(s): N28.9 - Disorder of kidney and ureter, unspecified (2) Cellulitis Current visit: Yes Status: Acute Qualifiers: Site of cellulitis: extremity Site of cellulitis of extremity: lower extremity Laterality: unspecified laterality Qualified Code(s): L03.119 - Cellulitis of unspecified part of limb Category: Medical Code(s): L03.90 - Cellulitis, unspecified (3) Alcohol abuse Current visit: Yes Status: Acute Category: Social Hx Code(s): F10.10 - Alcohol abuse, uncomplicated - Assessment and plan all Dx Assessment and Plan for all problems:: B/L LE CELLULITIS: Chloraprep was used to scrub both b/l LE. There was a maggot noted from a blister of right calf. In between the right foot toes, there were maggots noted. Utilizing foreceps, the maggots were removed and placed in a specimen cup. No signs of deep infection or ulcerations. The toenails were trimmed with a nail nippers, x 10. Patient tolerated procedure well. 1. Compression wraps for swelling per wound care team 2. Okay to WBaT in post op shoes and get up for physical therapy 3. Continue Abx 4. No plans for surgical intervention 5. Follow up with Bridgette Avendaño outpt for compression therapy 6. Follow up outpt for wound care
--- NOTE | 2017-09-19 08:21 | Progress Note ---
Subjective Date: 09/19/17 Time: 08:00 Principal diagnosis: B/L LE CELLULITIS Interval history: Patient is resting comfortably in bed. He complains of "dry toes" on right foot. He denies pain. PN: Obj Ex Vital signs: Temp Pulse Resp BP Pulse Ox 98.5 F 99 H 18 126/66 98 09/19/17 07:55 09/19/17 07:55 09/19/17 07:55 09/19/17 07:55 09/19/17 07:55 - Constitutional no acute distress - Routine HEENT Exam Head: Present: normocephalic - Routine Neck Exam Present: supple - Routine Respiratory Exam Absent: respiratory distress - Routine Extremities Exam Present: pulses intact, normal capillary refill. Absent: calf tenderness, amputation - Detailed Lower Extremity Exam Comments: B/L LE Unna boots clean dry and intact. Boots not removed. CFT wnl. Skin temp warm. Toes and interspaces evalauted, no ulcerations noted. No evidence of new maggots. No pain to palpation. Progress Note: A&P (1) Renal insufficiency Status: Acute Current Visit: Yes (2) Cellulitis Status: Acute Current Visit: Yes (3) Alcohol abuse Status: Acute Current Visit: Yes Assessment and Plan for All Diagnoses:: B/L LE CELLULITIS: Wound culture, 09/17/17: Enterobacter cloac, GNR, GPC Unna boot left clean dry and intact. No new evidence of maggots to feet. 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 I had a discussion with the patient regarding foot hygiene. I recommend soaking the feet in Epsom salts and warm water after the wraps are removed. I recommend daily inspection of the feet in between the toes. I also recommend basic routine foot care be performed to prevent issues in the future. 1. Compression wraps for swelling per wound care team applied 09/18/17, left intact 2. Okay to WBaT in post op shoes and get up for physical therapy, dispensed b/l post op shoes today 3. Continue Abx 4. No plans for surgical intervention 5. Okay from Podiatry stand point to be discharged on antibiotics, once culture finalizes 6. Follow up outpt for wound care, continue compression therapy
--- NOTE | 2017-09-19 14:00 | Progress Note ---
Internal Medicine - PN: Subj *Date: 09/19/17 *Time: 13:57 Interval history: doing better and has seen podiatry and has leg wraps Exam Vital signs and Labs for Last 24 Hours: Temp Pulse Resp BP Pulse Ox 98.5 F 99 H 18 126/66 98 09/19/17 07:55 09/19/17 07:55 09/19/17 07:55 09/19/17 07:55 09/19/17 07:55 I & O for Last 24 hours: Intake & Output 09/17/17 09/18/17 09/19/17 09/20/17 11:59 11:59 11:59 11:59 Intake Total 150 / 150 3977 / 3977 Output Total 550 / 550 400 / 400 Balance -400 / -400 3577 / 3577 Weight 247 lb 2 oz 246 lb 6 oz Microbiology Reports for the Last 24 Hours: Microbiology 09/17/17 19:23 Leg,Right Gram Stain - Final 09/17/17 19:23 Leg,Right Wound Culture - Preliminary Gram Positive Cocci Gram Positive Cocci#2 09/17/17 19:23 Leg,Left Gram Stain - Final 09/17/17 19:23 Leg,Left Wound Culture - Preliminary Enterobact cloac comp Gram Negative Rods#2 Gram Positive Cocci Gram Positive Cocci#2 - Constitutional no acute distress - *Routine HEENT Exam Head: Present: normocephalic Eye: Present: EOMI, PERRL ENT: Present: mucous membranes dry - *Routine Neck Exam Absent: JVD - *Routine Respiratory Exam Absent: respiratory distress - *Routine Cardiovascular Exam Present: RRR - *Routine Abdominal Exam Present: soft - *Routine Extremities Exam Comments: unna wraps - *Routine Neurological Exam Present: alert, CN II-XII intact - Routine Psychiatric Exam Present: normal affect Assessment and Plan (1) Renal insufficiency Current visit: Yes Status: Acute Category: Medical Code(s): N28.9 - Disorder of kidney and ureter, unspecified (2) Cellulitis Current visit: Yes Status: Acute Qualifiers: Site of cellulitis: extremity Site of cellulitis of extremity: lower extremity Laterality: unspecified laterality Qualified Code(s): L03.119 - Cellulitis of unspecified part of limb Category: Medical Code(s): L03.90 - Cellulitis, unspecified (3) Alcohol abuse Current visit: Yes Status: Acute Category: Social Hx Code(s): F10.10 - Alcohol abuse, uncomplicated
[2017-09-20 05:45] LABS: Basophils % 0.4 % (0.1-2.0); Eosinophils # 0.2 K/mm3 (0.0-0.4); Eosinophils % 3.3 % (0.1-12.0); Hematocrit 33.5 % (42.0-52.0); Hemoglobin 11.1 g/dL (14.1-18.0); Lymphocytes # 1.3 K/mm3 (0.7-4.5); Lymphocytes % 23.7 K/mm3 (10-50); Mean Corpuscular HGB Conc 33.1 g/dL (31.8-35.4); Mean Corpuscular Hemoglobin 32.7 pg (27.0-31.2); Mean Corpuscular Volume 98.9 fl (80-94); Mean Platelet Volume 8.8 fl (7.4-10.4); Monocytes # 0.4 K/mm3 (0.1-1.0); Monocytes % 7.7 % (1.7-9.3); Neutrophils # 3.5 K/mm3 (1.8-7.8); Neutrophils % 64.9 % (37.0-80.0); Platelet Count 187 K/mm3 (142-424); Red Blood Count 3.38 M/mm3 (4.60-6.20); Red Cell Distribution Width 12.8 % (11.5-17.5); White Blood Count 5.3 K/mm3 (4.8-10.8)
[2017-09-20 05:50] LABS: Anion Gap 10.6 mEq/L (5-15); Calcium 7.7 mg/dL (8.5-10.1); Potassium 3.6 mmoL/L (3.5-5.1)
--- NOTE | 2017-09-20 08:28 | Discharge Summary ---
General - General Admission date:: 09/17/17 Discharge date: 09/20/17 HPI HPI: Mr. Oh is a 62 y/o male who presents for b/l LE cellulitis. He reports redness and swelling x 3-4 weeks. He denies N/V, F/C, SOB/CP. He denies purulence or drainage. He has not been cleaning the legs and does not recall last time nails cut. He states the "legs are sensitive". Per Dr. Webster 09/17/17: this wm with progressive swollen legst comes to the ED with redness and swelling of both feet and both lower legs with foul smelling drainage for about 4 to 5 weeks. He normally sees one of Dr. Webster's KILN PLACER 's but has not seen anyone in about 4 months and he says this started about 3 to 4 months ago. He has not been running any fevers and the family talked him into coming to the ED today but he says he can get up and go to the bathroom by himself but family says he has kept his pants and shoes and socks on for the past 3 to 4 months and they were not aware of him having any problem until they saw him today. He has never been a smoker but he does drink about 4 to5 24 ounce beers each day . he denies any fever at all and no SOA MD complaint: rash, other (cellulitis of both lower legs with foul smelling drainage but says he is not a diabetic) Hospital Course Hospital Course: pt has slowly improved with iv abx and ivf - pt was seen by podiatry and physical therapy and had unna wraps - pt able to ambulate and tolerating diet and labs improved Objective Vital signs: Temp Pulse Resp BP Pulse Ox 99.2 F 86 20 134/87 100 09/20/17 08:00 09/20/17 08:00 09/20/17 08:00 09/20/17 08:00 09/20/17 08:00 no acute distress, obese - *Routine HEENT Exam Head: Present: normocephalic Eye: Present: EOMI, PERRL ENT: Present: mucous membranes dry - *Routine Neck Exam Present: supple - *Routine Respiratory Exam Present: CTA bilaterally - *Routine Cardiovascular Exam Present: RRR, murmur - *Routine Abdominal Exam Present: soft - *Routine Extremities Exam Comments: bilat unna wraps - *Routine Skin Exam Comments: improving cellulitis - *Routine Neurological Exam Present: alert, oriented X3, CN II-XII intact - Routine Psychiatric Exam Present: normal affect Results Labs on day of discharge: Labs from last 24 hours 09/20/17 09/20/17 05:06 05:06 WBC 5.3 D RBC 3.38 L Hgb 11.1 L Hct 33.5 L MCV 98.9 H MCH 32.7 H MCHC 33.1 RDW 12.8 Plt Count 187 MPV 8.8 Neut % (Auto) 64.9 Lymph % (Auto) 23.7 [place] % (Auto) 7.7 Eos % (Auto) 3.3 Baso % (Auto) 0.4 Neut # (Auto) 3.5 Lymph # (Auto) 1.3 [place] # (Auto) 0.4 Eos # (Auto) 0.2 Baso # (Auto) 0.0 Sodium 140 Potassium 3.6 D Chloride 109 H Carbon Dioxide 24 Anion Gap 10.6 BUN 12 D Creatinine 1.24 D Estimated Creat Clear 52 Estimated GFR 59 Est GFR ( Amer) 72 D Glucose 106 Calcium 7.7 L Preliminary micro results at discharge 09/17/17 19:23 Wound Culture - Preliminary Leg,Right Staphylococcus aureus Gram Positive Cocci#2 Gram Negative Rods Gram Negative Rods#2 09/17/17 19:23 Wound Culture - Preliminary Leg,Left Enterobact cloac comp Gram Negative Rods#2 Staphylococcus aureus Gram Positive Cocci#2 09/17/17 19:08 Blood Culture - Preliminary Blood NO GROWTH AFTER 48 HOURS 09/17/17 19:08 Blood Culture - Preliminary Blood NO GROWTH AFTER 48 HOURS DS: Diagnosis - Discharge Diagnosis (1) Renal insufficiency Status: Acute (2) Cellulitis Status: Acute (3) Alcohol abuse Status: Acute (4) Overweight Status: Acute Discharge Plan - Patient Discharge Instructions ACTIVITY: Continue current activity DIET: continue same diet - Follow up Plan Disposition: Home, Self-Half-Way Medications: Home Medications Medication Instructions Recorded Confirmed Type atorvastatin 10 mg tablet 10 mg PO DAILY 30 Days #30 04/10/17 09/17/17 History Metoprolol Succinate 25 mg PO DAILY 09/17/17 09/17/17 History Calcium Carbonate/Vitamin D3 1 each PO DAILY 09/18/17 09/18/17 History [Calcium 600 + Vit D 400 Softgl] Ergocalciferol (Vitamin D2) 50,000 unit PO WEEKLY 09/18/17 09/18/17 History [Vitamin D2] Losartan Potassium [Cozaar] 100 mg PO DAILY 09/18/17 09/18/17 History Prescriptions/Medication Reconciliation: New Sulfamethoxazole/Trimethoprim [Bactrim DS tablet] 1 each PO BID #14 tab levoFLOXacin [Levaquin 500mg tab] 500 mg PO DAILY #7 tab Continue atorvastatin 10 mg tablet 10 mg PO DAILY 30 Days #30 Metoprolol Succinate 25 mg PO DAILY Calcium Carbonate/Vitamin D3 [Calcium 600 + Vit D 400 Softgl] 1 each PO DAILY Losartan Potassium [Cozaar] 100 mg PO DAILY Ergocalciferol (Vitamin D2) [Vitamin D2] 50,000 unit PO WEEKLY
== END 2017-09-20 13:15 | disposition home or self-care (01) ==
LOC: 2ND 18:28 → ER 18:28 → OBSVTOIN 20:32 → 2ND 20:33
PROVIDERS: ADMIT Emergency Medicine; ATTEND Emergency Medicine
CPT/HCPCS: 29580; 36415; 73590; 80048; 80053; 81001; 83605; 83735; 85025; 87040; 87070; 87077; 87186; 87205; 96365; 96367; 97116; 97162; 97597; 97598; 99284; J1956; J3370

== ENCOUNTER → 2017-11-08 07:42 | Outpatient (CLI) | payer BC, SELFPAY ==
--- NOTE | 2017-11-08 08:26 | NVE_ITS ---
Venous Exam Indications: 782.3 Edema. 729.5 Pain in limb. IMPRESSIONS 1. There is no evidence of significant Reflux. 2. No evidence of deep or superficial vein thrombosis involving the right lower extremity. Scanned to the pop fossa d/t bandaged. Lower leg wrapped in bandage from calf to foot d/t oozing sores. Right lower extremity venous duplex evaluation. Doppler flow study including spectral analysis, color and arnold scale imaging. Location: Vascular laboratory. Patient status: Outpatient. Tables: Venous flow and imaging: + + + + Location Overall Flow properties + + + + Right common femoral Patent Normal phasicity; spontaneous; normal augmentation; compressible + + + + Right saphenofemoral Patent Compressible junction + + + + Right profunda femoral Patent Compressible + + + + Right femoral Patent Normal phasicity; spontaneous; normal augmentation; compressible + + + + Right greater saphenous Patent Normal phasicity; spontaneous; normal augmentation; compressible + + + + Right popliteal Patent Normal phasicity; spontaneous; normal augmentation; compressible + + + + Right posterior tibial Not visualized + + + + Right peroneal Not visualized + + + + Right gastrocnemius Not visualized + + + + Right soleal Not visualized + + + + (Report rivka ) Electronically signed by: Shantanu Green [id number]
--- NOTE | 2017-11-08 08:26 | CI_ITS ---
Cerebrovascular Exam Indications: 780.4 Dizziness and giddiness. IMPRESSIONS 1. The bilateral vertebral arteries are patent with normal antegrade flow. 2. Study suggests less than 20% stenosis involving the right internal carotid artery. 3. Study suggests 20-49% stenosis involving the left internal carotid artery. Carotid duplex study. Complete study and Doppler flow study including spectral analysis, color and arnold scale imaging. Height: Height: 165.1cm. Height: 65in. Weight: Weight: 107.5kg. Weight: 236.5lb. Body mass index: BMI: 39.4kg/m^2. Body surface area: BSA: 2.27m^2. Location: Vascular laboratory. Patient status: Outpatient. Tables: Arterial flow: + +--------+--------+ Location V sys V ed + +--------+--------+ Right CCA - proximal 91.1cm/s 28.3cm/s + +--------+--------+ Right CCA - distal 77cm/s 27.5cm/s + +--------+--------+ Right ECA 89.9cm/s -------- + +--------+--------+ Right ICA - proximal 68.4cm/s 24.3cm/s + +--------+--------+ Right ICA - mid 64.5cm/s 24.8cm/s + +--------+--------+ Right ICA - distal 88.2cm/s 34.2cm/s + +--------+--------+ Right vertebral 48.7cm/s -------- + +--------+--------+ Left CCA - proximal 130cm/s 31.4cm/s + +--------+--------+ Left CCA - distal 93.2cm/s 26.5cm/s + +--------+--------+ Left ECA 80.5cm/s -------- + +--------+--------+ Left ICA - proximal 105cm/s 44.7cm/s + +--------+--------+ Left ICA - mid 85.5cm/s 29.8cm/s + +--------+--------+ Left ICA - distal 83.3cm/s 28.7cm/s + +--------+--------+ Left vertebral 39.7cm/s -------- + +--------+--------+ Velocity ratios: + + + + + + Right, V sys Right, V ed Left, V sys Left, V ed + + + + + + Max ICA/dist CCA 1.15 1.24 1.13 1.69 + + + + + + (Report amended ) Electronically signed by: Shantanu Green [id number]
--- NOTE | 2017-11-08 08:26 | US_ITS ---
US Arterial Ankle Brachial Ind History: ITS.REASON: claudication, nonhealing ulcers with hypertension and hyperlipidemia ORDERING PHYSICIAN: Yves Muir MD PATIENT AGE: 62 years TECHNIQUE: Segmental pressures obtained of both right and left leg. These are compared to brachial blood pressure to yield index at each level sampled including summary SANDHYA. The data sheets from the procedure are available in PACS FINDINGS Rest study only performed today No prior studies available for comparison. Blood pressures reported are in millimeters mercury. RIGHT LEG SANDHYA = 1.57. RIGHT LEG TBI=0.70 Brachial BP: 152 Thigh BP: 159 Calf BP: >254 Ankle PT: 238 Ankle DP : >254 Digit =107 LEFT LEG SANDHYA = 1.61 LEFT LEG TBI= 0.71 Brachial BPD: 150 Thigh BP: >254 Calf BP: 197 Ankle PT:244 Ankle DP: >254 Digit = 108 Pulses and waveforms: Diminished pulses and waveforms bilaterally IMPRESSION: 1. Elevated bilateral ABIs consistent with atherosclerotic calcification/hardening of the arteries some of which are noncompressible 2. Slightly low TBI s on both sides suggesting small vessel disease. 3. Diminished pulses and waveforms bilaterally
== END ==
PROVIDERS: Family Provider Emergency Medicine; PCP Physician Assistant; Visit Provider Internal Medicine Cardiovascular Disease
DX: R42 Dizziness and giddiness (principal); L03.90 Cellulitis, unspecified
CPT/HCPCS: 93880; 93922; 93971

== ENCOUNTER → 2017-11-10 09:13 | Outpatient (CLI) | payer BC, SELFPAY ==
--- NOTE | 2017-11-10 09:15 | US_ITS ---
US abdomen limited History:Elevated liver functions Ordering Physician:Vicente Fabian Patient Age: 62 years Comparison:None Findings: Pancreas:Not well delineated due to overlying bowel gas Liver:There is increased echogenicity of the liver with decreased through transmission of sound consistent with fatty liver. There is appropriate directional blood flow within the portal vein. No obvious hepatic lesions. Common bile duct is normal at 3 mm. Right Kidney:Unremarkable. Normal size and echogenicity. No hydronephrosis Gallbladder:No gallstones, gallbladder wall thickening, pericholecystic fluid, or biliary dilatation. Impression: Fatty liver otherwise negative right upper quadrant ultrasound
== END ==
PROVIDERS: Family Provider Emergency Medicine; PCP Physician Assistant; Referring Provider Internal Medicine; Visit Provider Internal Medicine
DX: R94.5 Abnormal results of liver function studies (principal)
CPT/HCPCS: 76705

== ENCOUNTER → 2017-12-12 13:47 | Outpatient (CLI) | payer BC, SELFPAY ==
[2017-12-12 14:59] LABS: Anion Gap 10.2 mEq/L (5-15); Blood Urea Nitrogen 13 mg/dL (7-18); Calcium 9.3 mg/dL (8.5-10.1); Carbon Dioxide 30 mmol/L (21.0-32.0); Chloride 104 mmol/L (98-107); Creatinine,Serum 0.81 mg/dL (0.70-1.30); Estimated Glomerular Filt Rate 97 ml/min (>60); GFR (African American) 117 ML/MIN (>60); Glucose 106 mg/dL (74-106); Potassium 4.2 mmoL/L (3.5-5.1); Sodium 140 mmol/L (136-145)
== END ==
PROVIDERS: Family Provider Emergency Medicine; PCP Physician Assistant; Visit Provider Physician Assistant
DX: E66.3 Overweight (principal); F10.10 Alcohol abuse, uncomplicated; I65.29 Occlusion and stenosis of unspecified carotid artery; I73.9 Peripheral vascular disease, unspecified; L03.119 Cellulitis of unspecified part of limb; N17.9 Acute kidney failure, unspecified; N28.9 Disorder of kidney and ureter, unspecified; R60.9 Edema, unspecified
CPT/HCPCS: 36415; 80048

== ENCOUNTER → 2018-01-23 14:24 | Outpatient (CLI) | payer BC, SELFPAY ==
[2018-01-23 16:28] LABS: Anion Gap 14.4 mEq/L (5-15); Blood Urea Nitrogen 18 mg/dL (7-18); Calcium 9.9 mg/dL (8.5-10.1); Carbon Dioxide 29 mmol/L (21.0-32.0); Chloride 99 mmol/L (98-107); Creatinine,Serum 0.97 mg/dL (0.70-1.30); Estimated Glomerular Filt Rate 79 ml/min (>60); GFR (African American) 95 ML/MIN (>60); Glucose 108 mg/dL (74-106); Potassium 4.4 mmoL/L (3.5-5.1); Sodium 138 mmol/L (136-145)
== END ==
PROVIDERS: Visit Provider Internal Medicine
DX: I50.30 Unspecified diastolic (congestive) heart failure (principal)
CPT/HCPCS: 36415; 80048; 83880

== ENCOUNTER → 2018-05-14 13:17 | Outpatient (CLI) | payer BC, SELFPAY ==
[2018-05-14 13:53] LABS: Basophils % 0.4 % (0.1-2.0); Eosinophils # 0.5 K/mm3 (0.0-0.4); Eosinophils % 5.2 % (0.1-12.0); Hemoglobin 13.9 g/dL (14.1-18.0); Lymphocytes # 2.8 K/mm3 (0.7-4.5); Lymphocytes % 30.2 % (10-50); Mean Corpuscular Volume 93.8 fl (80-94); Mean Platelet Volume 10.2 fl (7.4-10.4); Monocytes # 0.5 K/mm3 (0.1-1.0); Monocytes % 5.6 % (1.7-9.3); Neutrophils # 5.5 K/mm3 (1.8-7.8); Neutrophils % 58.6 % (37.0-80.0); Platelet Count 211 K/mm3 (142-424); Red Blood Count 4.47 M/mm3 (4.60-6.20); Red Cell Distribution Width 12.9 % (11.5-17.5); White Blood Count 9.3 K/mm3 (4.8-10.8)
[2018-05-14 14:13] LABS: Alanine Aminotransferase 28 U/L (12-78); Albumin Level 3.2 gm/dL (3.4-5.0); Albumin/Globulin Ratio 0.8 (1.1-1.8); Alkaline Phosphatase 117 U/L (46-116); Anion Gap 13.3 mEq/L (5-15); Aspartate Amino Transferase 20 U/L (15-37); Bilirubin,Total 0.3 mg/dL (0.2-1.0); Blood Urea Nitrogen 18 mg/dL (7-18); Calcium 9.2 mg/dL (8.5-10.1); Carbon Dioxide 28 mmol/L (21.0-32.0); Chloride 104 mmol/L (98-107); Chol/HDL Ratio 3.3 (1-3.5); Cholesterol 140 mg/dL (140-200); Creatinine,Serum 0.82 mg/dL (0.70-1.30); Estimated Glomerular Filt Rate 95 ml/min (>60); Free T4 (Free Thyroxine) 1.01 ng/dl (0.76-1.46); GFR (African American) 115 ML/MIN (>60); Globulin 3.9 gm/dl (1.3-3.2); Glucose 110 mg/dL (74-106); HDL Cholesterol 43 mg/dL (27-67); LDL Cholesterol 88 mg/dL (0-130); Potassium 4.3 mmoL/L (3.5-5.1); Sodium 141 mmol/L (136-145); Thyroid Stimulating Hormone 4.36 uIU/ml (0.358-3.740); Total Protein,Serum 7.1 gm/dL (6.4-8.2); Triglycerides 47 mg/dL (30-200); VLDL Cholesterol 9 mg/dL (0-40)
[2018-05-15 08:26] LABS: Hep A Ab, IgM Negative (Negative); Hepatitis B Core Antibody IgM Negative (Negative); Hepatitis B Surface Antigen Negative (Negative)
[2018-05-16 07:57] LABS: Hepatitis C Antibody 0.1 s/co ratio (0.0-0.9)
[2018-05-16 07:58] LABS: Vitamin B12 508 pg/mL (232-1245)
== END ==
PROVIDERS: Visit Provider Emergency Medicine
DX: N28.9 Disorder of kidney and ureter, unspecified (principal); Z29.9 Encounter for prophylactic measures, unspecified; I10 Essential (primary) hypertension; E78.2 Mixed hyperlipidemia; I51.89 Other ill-defined heart diseases; E66.9 Obesity, unspecified; Z79.899 Other long term (current) drug therapy
CPT/HCPCS: 80053; 80061; 80074; 82607; 82652; 84439; 84443; 85025

== ENCOUNTER → 2018-08-14 17:57 | Outpatient (CLI) | payer BC, SELFPAY ==
[2018-08-14 19:12] LABS: Basophils # 0.1 K/mm3 (0-0.2); Basophils % 0.6 % (0.1-2.0); Eosinophils # 0.3 K/mm3 (0.0-0.4); Eosinophils % 3.3 % (0.1-12.0); Hematocrit 41.2 % (42.0-52.0); Hemoglobin 13.4 g/dL (14.1-18.0); Lymphocytes # 2.6 K/mm3 (0.7-4.5); Lymphocytes % 25.8 % (10-50); Mean Corpuscular HGB Conc 32.5 g/dL (31.8-35.4); Mean Corpuscular Volume 89.4 fl (80-94); Mean Platelet Volume 9.8 fl (7.4-10.4); Monocytes # 0.7 K/mm3 (0.1-1.0); Monocytes % 6.9 % (1.7-9.3); Neutrophils # 6.3 K/mm3 (1.8-7.8); Neutrophils % 63.4 % (37.0-80.0); Platelet Count 219 K/mm3 (142-424); Red Cell Distribution Width 12.4 % (11.5-17.5); White Blood Count 9.9 K/mm3 (4.8-10.8)
[2018-08-14 19:42] LABS: Alanine Aminotransferase 27 U/L (12-78); Albumin Level 3.6 gm/dL (3.4-5.0); Albumin/Globulin Ratio 0.9 (1.1-1.8); Alkaline Phosphatase 113 U/L (46-116); Anion Gap 10.8 mEq/L (5-15); Aspartate Amino Transferase 16 U/L (15-37); Bilirubin,Total 0.4 mg/dL (0.2-1.0); Blood Urea Nitrogen 16 mg/dL (7-18); Calcium 9.5 mg/dL (8.5-10.1); Carbon Dioxide 29 mmol/L (21.0-32.0); Chloride 102 mmol/L (98-107); Chol/HDL Ratio 3.4 (1-3.5); Cholesterol 136 mg/dL (140-200); Creatinine,Serum 0.96 mg/dL (0.70-1.30); Estimated Glomerular Filt Rate 79 ml/min (>60); GFR (African American) 96 ML/MIN (>60); Globulin 3.9 gm/dl (1.3-3.2); Glucose 101 mg/dL (74-106); HDL Cholesterol 40 mg/dL (27-67); LDL Cholesterol 80 mg/dL (0-130); Potassium 4.8 mmoL/L (3.5-5.1); Sodium 137 mmol/L (136-145); Thyroid Stimulating Hormone 2.14 uIU/ml (0.358-3.740); Total Protein,Serum 7.5 gm/dL (6.4-8.2); Triglycerides 80 mg/dL (30-200); VLDL Cholesterol 16 mg/dL (0-40)
[2018-08-16 18:55] LABS: PSA, Free 0.05 ng/mL; Prostate Specific Ag 0.2 ng/mL (0.0-4.0); Vitamin D 25 Hydroxy 50.2 ng/mL (30.0-100.0)
== END ==
PROVIDERS: Emergency Medicine; Visit Provider Nurse Practitioner Family
DX: R60.9 Edema, unspecified (principal); I10 Essential (primary) hypertension; Z12.5 Encounter for screening for malignant neoplasm of prostate
CPT/HCPCS: 80053; 80061; 82652; 84153; 84154; 84439; 84443; 85025

== ENCOUNTER → 2019-12-24 11:48 | Outpatient (CLI) | payer MEDICARE, MEDICAID, SELFPAY ==
[2019-12-24 13:03] LABS: Anion Gap 14.1 mEq/L (5-15); Blood Urea Nitrogen 14 mg/dl (9-20); Calcium 9.6 mg/dl (8.4-10.2); Carbon Dioxide 26 mmol/L (22.0-30.0); Chloride 104 mmol/L (98-107); Estimated Glomerular Filt Rate 114 ml/min (>60); GFR (African American) 138 ML/MIN (>60); Glucose 118 mg/dl (74-100); Potassium 4.1 mmoL/L (3.5-5.1); Sodium 140 mmol/L (136-145)
== END ==
PROVIDERS: Visit Provider Nurse Practitioner Family
DX: E03.9 Hypothyroidism, unspecified (principal); E66.3 Overweight; E66.9 Obesity, unspecified; E78.5 Hyperlipidemia, unspecified; I10 Essential (primary) hypertension; I87.2 Venous insufficiency (chronic) (peripheral); K70.10 Alcoholic hepatitis without ascites; N17.9 Acute kidney failure, unspecified; N28.9 Disorder of kidney and ureter, unspecified; R60.9 Edema, unspecified
CPT/HCPCS: 36415; 80048

== ENCOUNTER → 2020-11-10 14:16 | Outpatient (CLI) | payer MEDICARE, MEDICAID, SELFPAY | PROVIDERS: PCP Emergency Medicine; Visit Provider Nurse Practitioner | DX: Z20.822 Contact with and (suspected) exposure to COVID-19 (principal) | CPT/HCPCS: C9803; U0003; U0005 ==

== ENCOUNTER → 2020-12-04 14:31 | Outpatient (CLI) | payer MEDICARE, MEDICAID, SELFPAY ==
--- NOTE | 2020-12-04 14:33 | CA_ITS ---
APPROVED REPORT Sales & Service Associate: Val Perry RVT Laterality: Bilateral Study Quality: Adequate Indications: Carotid stenosis Risk Factors Hypertension: Hyperlipidemia Doppler Spectral Velocity Analysis ECA (R) 90.90/15.00 cm/s ECA (L) 105.90/17.10 cm/s dICA (R) 87.70/25.70 cm/s dICA (L) 67.40/15.00 cm/s Chu (R) 59.90/18.20 cm/s Chu (L) 72.70/15.00 cm/s pICA (R) 59.90/19.20 cm/s pICA (L) 82.30/15.00 cm/s dCCA (R) 70.60/11.80 cm/s dCCA (L) 75.90/15.00 cm/s pCCA (R) 89.80/13.90 cm/s pCCA (L) 72.70/8.60 cm/s Vert (R) 64.20/11.80 cm/s Vert (L) 34.20/9.60 cm/s ICA/CCA 1.24 ICA/CCA 1.08 Findings Study suggests less than 20% stenosis of the right internal cartoid artery. Study suggests 20-49% stenosis of the left internal cartoid artery. Antegrade flow seen bilateral vertebral arteries. Conclusion Study suggests less than 20% stenosis of the right internal cartoid artery. Study suggests 20-49% stenosis of the left internal cartoid artery. Antegrade flow seen bilateral vertebral arteries. Electronically signed by : Shantanu Green MD 12/08/2020 09:27:16
== END ==
PROVIDERS: PCP Emergency Medicine; Visit Provider Nurse Practitioner Family
DX: E66.9 Obesity, unspecified (principal); I65.23 Occlusion and stenosis of bilateral carotid arteries; I73.9 Peripheral vascular disease, unspecified; N28.9 Disorder of kidney and ureter, unspecified; R60.0 Localized edema; Z68.36 Body mass index [BMI] 36.0-36.9, adult
CPT/HCPCS: 93880

== ENCOUNTER 2021-05-13 01:51 | Observation (INO) | payer MEDICARE, MEDICAID, SELFPAY ==
[2021-05-13] VITALS (14 sets, daily range): BP systolic 106–156; BP diastolic 58–88; PULSE 74–97; RESP 18–20; TEMP 36.6–37.3; O2SAT 94–98; BMI 37.9; BMI 33.7; BMI 33.5
--- NOTE | 2021-05-13 01:56 | XR_ITS ---
PROCEDURE INFORMATION: Exam: XR Left Knee Exam date and time: 05/13/2021 1:56 AM Age: 66 years old Clinical indication: Injury or trauma; Fall; Blunt trauma; Knee; Left TECHNIQUE: Imaging protocol: XR Left knee. Views: 3 views. COMPARISON: CR [id number] 09/27/2016 12:24 PM FINDINGS: Bones/joints: Stable appearance of a high-riding patella with mild/moderate lateral subluxation. No evidence of an acute fracture or effusion. Mild tricompartmental degenerative changes. Soft tissues: Mild soft tissue swelling. Vasculature: Vascular calcifications. IMPRESSION: No acute fracture. Otherwise, as above.
--- NOTE | 2021-05-13 02:00 | XR_ITS ---
PROCEDURE INFORMATION: Exam: XR Chest Exam date and time: 05/13/2021 2:00 AM Age: 66 years old Clinical indication: Injury or trauma; Fall; Blunt trauma (contusions or hematomas) TECHNIQUE: Imaging protocol: XR of the chest. Views: 1 view. COMPARISON: CT ABDOMEN PELVIS WO CON 05/13/2021 3:21 AM FINDINGS: Lungs: Calcified granuloma in the left lung base. Mild linear atelectasis/fibrosis. No focal consolidation. Pleural spaces: Unremarkable. No pleural effusion. No pneumothorax. Heart/Mediastinum: Cardiomegaly. Bones/joints: Osteoarthritic changes. IMPRESSION: 1. No acute process. 2. Cardiomegaly. 3. Otherwise, as above.
--- NOTE | 2021-05-13 02:01 | CT_ITS ---
PROCEDURE INFORMATION: Exam: CT Cervical Spine Without Contrast Exam date and time: 05/13/2021 2:01 AM Age: 66 years old Clinical indication: Injury or trauma; Fall TECHNIQUE: Imaging protocol: Computed tomography images of the cervical spine without contrast. Radiation optimization: All CT scans at this facility use at least one of these dose optimization techniques: automated exposure control; mA and/or kV adjustment per patient size (includes targeted exams where dose is matched to clinical indication); or iterative reconstruction. COMPARISON: US CA CAROTID DUPLEX BI 12/04/2020 2:39 PM FINDINGS: Bones/joints: The vertebral bodies are normal height. There is no fracture present. The atlanto dens interval is intact. There is no dens fracture. Discs/Spinal canal/Neural foramina: There is no evidence for ligamentous injury. There are moderate diffuse degenerative changes. Prevertebral Space: There is no abnormality of the prevertebral soft tissues. Lungs: Lung apices are normal. Soft tissues: Unremarkable. IMPRESSION: 1. No evidence for significant traumatic injury to the cervical spine. 2. Moderate degenerative changes.
--- NOTE | 2021-05-13 02:01 | XR_ITS ---
PROCEDURE INFORMATION: Exam: XR Pelvis Exam date and time: 05/13/2021 2:01 AM Age: 66 years old Clinical indication: Injury or trauma; Fall; Blunt trauma (contusions or hematomas); Does not apply; Pelvic region TECHNIQUE: Imaging protocol: XR pelvis. Views: 1 or 2 view. COMPARISON: CT ABDOMEN PELVIS WO CON 05/13/2021 3:21 AM FINDINGS: Bones/joints: No evidence of an acute fracture or dislocation. Hip joint spaces appear relatively preserved. Degenerative changes and scoliosis of the visualized spine. Soft tissues: Unremarkable. Vasculature: Vascular calcifications. IMPRESSION: No evidence of an acute fracture or dislocation.
--- NOTE | 2021-05-13 02:01 | CT_ITS ---
PROCEDURE INFORMATION: Exam: CT Head Without Contrast Exam date and time: 05/13/2021 2:01 AM Age: 66 years old Clinical indication: Injury or trauma; Fall TECHNIQUE: Imaging protocol: Computed tomography of the head without contrast. Radiation optimization: All CT scans at this facility use at least one of these dose optimization techniques: automated exposure control; mA and/or kV adjustment per patient size (includes targeted exams where dose is matched to clinical indication); or iterative reconstruction. COMPARISON: US CA CAROTID DUPLEX BI 12/04/2020 2:39 PM FINDINGS: Brain: Normal. No hemorrhage. Age appropriate white matter. No mass effect. No focal mass. The arnold-white matter junction is intact. Cerebral ventricles: No ventriculomegaly. Paranasal sinuses: Moderate bilateral maxillary sinus disease. Mastoid air cells: Visualized mastoid air cells are well aerated. Bones/joints: Unremarkable. No acute fracture. Soft tissues: Unremarkable. IMPRESSION: Normal examination of brain. There is no acute intracranial abnormality. There is no structural abnormality.
--- NOTE | 2021-05-13 02:07 | CT_ITS ---
PROCEDURE INFORMATION: Exam: CT Abdomen And Pelvis Without Contrast Exam date and time: 05/13/2021 2:07 AM Age: 66 years old Clinical indication: Abdominal pain; Additional info: Abd pain TECHNIQUE: Imaging protocol: Computed tomography of the abdomen and pelvis without contrast. Radiation optimization: All CT scans at this facility use at least one of these dose optimization techniques: automated exposure control; mA and/or kV adjustment per patient size (includes targeted exams where dose is matched to clinical indication); or iterative reconstruction. COMPARISON: ABDLM US abdomen limited 11/10/2017 9:11 AM FINDINGS: Heart: Aortic valve and coronary artery calcifications. Liver: Nodular cirrhotic liver morphology. Gallbladder and bile ducts: Normal. No calcified stones. No ductal dilation. Pancreas: Normal. No ductal dilation. Spleen: Calcified splenic granuloma. Adrenal glands: Normal. No mass. Kidneys and ureters: Mild nonspecific perinephric stranding bilaterally, which is most often a chronic finding. No radiopaque renal calculi. Mild fullness of the renal collecting systems. No fred hydronephrosis. Stomach and bowel: Unremarkable. No obstruction. No mucosal thickening. Appendix: No evidence of appendicitis. Intraperitoneal space: Unremarkable. No free air. No significant fluid collection. Vasculature: Moderate vascular calcifications. Lymph nodes: Unremarkable. No enlarged lymph nodes. Urinary bladder: Mildly distended urinary bladder. Reproductive: Unremarkable as visualized. Bones/joints: Severe degenerative changes of the spine. Soft tissues: Unremarkable. Other findings: The exam is moderately limited by motion artifact. IMPRESSION: 1. Moderately limited exam. No definite acute intra-abdominal process. 2. Cirrhotic liver. 3. Aortic valve and coronary artery calcifications. 4. Please see above report for additional findings.
--- NOTE | 2021-05-13 02:11 | PC.NURSE ---
PT REFUSES ABG, COVID SWAB, BLOOD DRAW, AND BREATHING TREATMENT. CHARGE NURSE MADE AWARE, MD MADE AWARE.
[2021-05-13 02:26] LABS: ABG Base Excess -5.1 mmol/L (-2.4-2.3); ABG HCO3 20.6 mmhg (22.0-26.0); ABG Oxygen Saturation 94 % (90-100); ABG PCO2 38.9 mmhg (35.0-45.0); ABG PH 7.34 mmol/L (7.35-7.45); ABG TCO2 21.8 mmhg (23-27)
[2021-05-13 02:27] LABS: Allen's Test Acceptable; Oxygen 21 %; Source Right Radial
--- NOTE | 2021-05-13 02:27 | HMH.EDFALL ---
ED Disposition Clinical Impression: Chronic venous stasis dermatitis of both lower extremities, Edema of both lower extremities, Diastolic dysfunction Fall Qualifiers: Encounter type: initial encounter Qualified Code(s): W19.XXXA - Unspecified fall, initial encounter Hypothyroidism Qualifiers: Hypothyroidism type: acquired Qualified Code(s): E03.9 - Hypothyroidism, unspecified Obesity Qualifiers: Obesity type: due to excess calories Obesity classification: adult class 2 (BMI 35 - 39.9) Serious obesity comorbidity presence: with serious comorbidity Body mass index: BMI 37.0-37.9 Qualified Code(s): E66.01 - Morbid (severe) obesity due to excess calories Alcohol intoxication Qualifiers: Complication of substance-induced condition: uncomplicated Qualified Code(s): F10.920 - Alcohol use, unspecified with intoxication, uncomplicated Contusion of knee, left Qualifiers: Encounter type: initial encounter Qualified Code(s): S80.02XA - Contusion of left knee, initial encounter Disposition: Admitted as Observation Condition on Discharge: Fair Referrals: Juan Webster MD [Primary Care Provider] - - Critical Care Critical Care Time: No Attestation: On 05/13/21, the high probability of a clinically significant, sudden or life threatening deterioration of the following system(s) required my full and direct attention, intervention and personal management. The time I documented below is in addition to time spent performing reported procedures but includes the following listed in this critical care notation. Medical Decision Making - Medical Records Medical records reviewed: Yes: I reviewed the patient's medical records. - [place] Inquiry Pt receiving controlled substance: No Vital Signs: 05/13/21 01:51 05/13/21 03:42 05/13/21 04:01 Temperature 98.4 F Temperature Source Oral Pulse Rate 85 84 Pulse Rate [Left Radial] 74 Respiratory Rate 18 Blood Pressure 148/83 H 130/72 Blood Pressure [Right Arm] 130/74 Blood Pressure Mean [Right Arm] 92 Blood Pressure Position Blood Pressure Position [Right Arm] Sitting 02 Sat by Pulse Oximetry 96 94 L 96 Oxygen Delivery Method Room Air Room Air Room Air 05/13/21 04:21 05/13/21 04:30 05/13/21 05:00 Temperature 97.8 F Temperature Source Oral Pulse Rate 92 H 85 94 H Pulse Rate [Left Radial] Respiratory Rate 18 Blood Pressure 126/88 108/64 L 106/58 L Blood Pressure [Right Arm] Blood Pressure Mean [Right Arm] Blood Pressure Position Blood Pressure Position [Right Arm] 02 Sat by Pulse Oximetry 98 97 97 Oxygen Delivery Method Room Air Room Air Room Air 05/13/21 05:30 05/13/21 06:00 05/13/21 06:14 Temperature 98.0 F Temperature Source Oral Pulse Rate 96 H 86 87 Pulse Rate [Left Radial] Respiratory Rate 18 Blood Pressure 117/73 123/80 123/80 Blood Pressure [Right Arm] Blood Pressure Mean [Right Arm] Blood Pressure Position Sitting Blood Pressure Position [Right Arm] 02 Sat by Pulse Oximetry 97 95 97 Oxygen Delivery Method Room Air Room Air Room Air 05/13/21 06:30 Temperature Temperature Source Pulse Rate 90 Pulse Rate [Left Radial] Respiratory Rate Blood Pressure 134/74 Blood Pressure [Right Arm] Blood Pressure Mean [Right Arm] Blood Pressure Position Blood Pressure Position [Right Arm] 02 Sat by Pulse Oximetry 95 Oxygen Delivery Method Room Air - Lab Data Lab results reviewed: Yes: I reviewed the patient's lab results. Lab Results 05/13/21 02:07: Specimen Source Right radial, O2 % 21, ABG pH 7.34 L, ABG pCO2 38.9, ABG pO2 80.0, ABG HCO3 20.6 L, ABG Total CO2 21.8 L, ABG O2 Saturation 94, ABG Base Excess -5.1 L, Shantanu Test Acceptable 05/13/21 02:56: Urine Color Yellow, Urine Appearance Clear, Urine pH 6.0, Ur Specific [place] <= 1.005, Urine Protein Negative, Urine Glucose (UA) Negative, Urine Ketones Negative, Urine Blood Negative, Urine Nitrate Negative, Urine Bilirubin Negative, Uri
--- NOTE | 2021-05-13 03:11 | ECG_ITS ---
APPROVED REPORT Exam: Resting ECG HR:81 bpm ECG Measurements Heart Rate 81 AXES FL 158 P 15 QRSd 95 QRS 2 QT 413 T 48 QTc 450 Conclusion SINUS RHYTHM NORMAL ECG UNCONFIRMED REPORT Electronically signed by : Vj Prince MD 05/13/2021 17:27:58
[2021-05-13 03:18] LABS: Microscopic, Urine URINE MICROSCOPIC (MICROSCOPIC)
[2021-05-13 03:19] LABS: Appearance,Urine CLEAR (Clear); Bilirubin,Urine Negative (Negative); Blood, Urine Negative (Negative); Color,Urine YELLOW (Yellow); Glucose,Urine (UA) Negative (Negative); Ketones,Urine Negative (Negative); Leukocyte Esterase,Urine Negative (Negative); Nitrate,Urine Negative (Negative); Protein,Urine Negative (Negative); Specific Gravity, Urine <= 1.005 (1.005-1.030); Urobilinogen,Urine 0.2 EU/dl (0.2)
--- NOTE | 2021-05-13 03:24 | PC.NURSE ---
PT TO CT VIA STRETCHER.
[2021-05-13 03:28] LABS: Coronavirus 19, PCR Not Detected (NotDetected); Influenza A, PCR Not Detected (NotDetected); Influenza B, PCR Not Detected (NotDetected)
[2021-05-13 03:32] LABS: Bacteria,Urine Trace /lpf; WBC,Urine Occasional #/hpf (0-3)
[2021-05-13 03:34] LABS: Basophils # 0.1 K/mm3 (0-0.2); Basophils % 1.7 % (0.1-2.0); Eosinophils # 0.2 K/mm3 (0.0-0.4); Eosinophils % 2.2 % (0.1-12.0); Hematocrit 52.8 % (42.0-52.0); Hemoglobin 16.6 g/dL (14.1-18.0); Lymphocytes # 3.7 K/mm3 (0.7-4.5); Lymphocytes % 43.3 % (10-50); Mean Corpuscular HGB Conc 31.5 g/dL (31.8-35.4); Mean Corpuscular Hemoglobin 32.6 pg (27.0-31.2); Mean Corpuscular Volume 103.5 fl (80-94); Mean Platelet Volume 9.5 fl (7.4-10.4); Monocytes # 0.5 K/mm3 (0.1-1.0); Monocytes % 5.5 % (1.7-9.3); Neutrophils % 47.2 % (37.0-80.0); Platelet Count 250 K/mm3 (142-424); Red Cell Distribution Width 13.4 % (11.5-17.5); White Blood Count 8.5 K/mm3 (4.8-10.8)
[2021-05-13 03:43] LABS: Alanine Aminotransferase 52 U/L (12-78); Albumin Level 4.4 g/dl (3.5-5.0); Albumin/Globulin Ratio 1.2 (1.1-1.8); Alkaline Phosphatase 88 U/L (38-126); Aspartate Amino Transferase 66 U/L (17-59); Bilirubin,Total 0.4 mg/dl (0.2-1.3); Blood Urea Nitrogen 13 mg/dl (9-20); Calcium 9.3 mg/dl (8.4-10.2); Carbon Dioxide 25 mmol/L (22.0-30.0); Chloride 105 mmol/L (98-107); Creatinine Clearance Estimated 111 mL/min (50-200); Estimated Glomerular Filt Rate 85 ml/min (>60); GFR (African American) 102 ML/MIN (>60); Globulin 3.7 g/dL (1.3-3.2); Glucose 121 mg/dl (74-100); Magnesium 2.1 mg/dl (1.6-2.3); Sodium 142 mmol/L (136-145); Total Protein,Serum 8.1 g/dl (6.3-8.2)
[2021-05-13 03:48] LABS: C-Reactive Protein 21.6 mg/L (0-4)
[2021-05-13 03:54] LABS: NT Pro Brain Natriuretic Pep. 36.4 pg/mL (0-125)
[2021-05-13 04:03] LABS: Procalcitonin 0.088 ng/mL (0.0-2.0); T4 (Thyroxine) 12.1 ug/dl (5.53-11.0)
[2021-05-13 04:13] LABS: Ethyl Alcohol 335 mg/dl (0-10); Troponin I < 0.01 ng/ml (0.00-0.034)
[2021-05-13 04:14] LABS: Erythrocyte Sedimentation Rate 17 mm/hr (0-20)
[2021-05-13 04:16] LABS: Thyroid Stimulating Hormone 1.78 uIU/mL (0.465-4.68)
--- NOTE | 2021-05-13 04:21 | PC.NURSE ---
PT REPOSITIONED FOR COMFORT. NO COMPLAINTS VOICED. NADN. FAMILY REMAINS AT BEDSIDE.
--- NOTE | 2021-05-13 06:16 | PC.NURSE ---
LABS DRAWN. PT/FAMILY UPDATED WITH EXPECTED WAIT TIMES. NO ACUTE DISTRESS NOTED. FAMILY REMAINS AT BEDSIDE.
--- NOTE | 2021-05-13 06:49 | PC.NURSE ---
PT AND FAMILY AWARE OF PLAN TO ADMIT.
[2021-05-13 07:10] LABS: Troponin I < 0.01 ng/ml (0.00-0.034)
--- NOTE | 2021-05-13 07:47 | HMH.PHAVTE ---
[facility] Pharmacy VTE Monitoring - Patient Demographics Admission date: 05/13/21 Report Date: 05/13/21 Time: 07:47 Allergies/Adverse Reactions: Patient Allergies No Known Allergies Allergy (Verified 02/22/21 13:15) Height: 1.68 m Weight: 106.594 kg Patient Problems: Current Active Problems Fall (Acute) Alcohol intoxication (Acute) Contusion of knee, left (Acute) Obesity (Chronic) Edema of both lower extremities (Chronic) Hypothyroidism (Acute) Diastolic dysfunction (Chronic) Chronic venous stasis dermatitis of both lower extremities (Chronic) - VTE Risk Labs: VTE Related Lab Results Hgb 16.6 g/dL (14.1-18.0) 05/13/21 03:16 Hct 52.8 % (42.0-52.0) H 05/13/21 03:16 Plt Count 250 K/mm3 (142-424) 05/13/21 03:16 BUN 13 mg/dl (9-20) 05/13/21 03:16 Creatinine 0.90 mg/dl (0.66-1.25) 05/13/21 03:16 Estimated Creat Clear 111 mL/min (50-200) 05/13/21 03:16 Clinical Trial Participant: No - Prophylaxis VTE Prophylaxis Ordered?: Yes Types of VTE Prophylaxis: TEDS Knee High
--- NOTE | 2021-05-13 07:50 | PC.NURSE ---
reports called to carin graham on second floor, states she will send staff down to transport pt
--- NOTE | 2021-05-13 08:00 | CA_ITS ---
APPROVED REPORT EXAM: Comprehensive 2D, Doppler, and color-flow Echocardiogram Economic Developer: Shanta Lopes CRT Ht: 5 ft 6 in Wt: 235lbs BSA: 2.14 BP: 134/74 mmHg Indications: Congestive Heart Failure, Shortness of Breath, Hyperlipidemia, Hypertension/HDD, Etoh use 2D Dimensions LVOT 1.93 cm (M/F) 1.5-2.5 LA Volume 42.80 mL LA Volume Index 20.00 mL/m2 (M/F) 16-34 M-Mode Dimensions RVDd 2.36 cm (0.9-2.6) LA Diam 3.16 cm (1.9-4.0) LVDd 4.51 cm (3.5-5.7) Ao Diam 4.66 cm (2.0-3.7) LVDs 2.72 cm (3.5-5.7) IVSd 1.93 cm (0.6-1.1) PWd 0.43 cm (0.6-1.1) EF (Teich) 70.40% FS 39.70% EDV (Teich) 92.90 mL TAPSE 2.45 (<1.7) ESV (Teich) 27.50 mL LV Diastology E Decel Time 463.00 (160-240 msec) E/A Ratio 0.66 MED E' 5.30 (< 7 cm/sec) MED A' 8.00 cm/s E'/MED E' Ratio 14.25 (>14) LAT E' 7.50 (<10 cm/sec) LAT A' 10.50 cm/s E/LAT E' Ratio 10.07 (>14) Aortic Valve LVOT Max 153.00 (70-110 cm/s) LVOT VTI 28.59 cm AoV Peak Jarad. 235.00 (50-130 cm/s) AO Peak GR. 25.10 mmHg AO Mean GR. 13.40 (<5 mmHg) AO VTI 40.26 (18-25 cm) MATT (VTI) 2.08 (2.5-4.5 cm2) Mitral Valve MV A Velocity 114.00 (40-130 cm/s) E/A Ratio 0.66 MV Decel. Time 463.00 (160-240 ms) Pulmonary Valve PV Peak Velocity 77.00 (50-150 cm/s) Tricuspid Valve TR P. Velocity 163.00 cm/s RAP Estimate 10.00 mmHg RVSP 20.60 mmHg Left Ventricle Left atrium is mildly enlarged, left ventricle normal size, mild concentric left ventricular hypertrophy, visually estimated ejection fraction 55% with no regional wall motion abnormality, grade 1 diastolic dysfunction seen without tissue Doppler evidence of raise left atrial pressure. Right Ventricle Right atrium and right ventricle are normal size and contractility. Aortic Valve Aortic valve is thickened and calcified, mean gradient across aortic valve is 21 mmHg, valve area is 1.6 cm represents mild aortic stenosis, there is no significant aortic insufficiency. Mitral Valve Mitral valve is grossly normal, there is trace mitral regurgitation. Tricuspid Valve Tricuspid grossly normal, there is trace tricuspid regurgitation, tricuspid regurgitation jet velocity is inadequate for calculation of the right ventricular systolic pressure. Pulmonic Valve Pulmonic valve is poorly visualized. Great Vessels Aortic root is normal size. Inferior vena cava is poorly visualized. Pericardium No significant pericardial effusion noted. Conclusion 1. Mildly enlarged left atrium, normal left ventricular size, mild concentric left ventricular hypertrophy, visually estimated ejection fraction 55% with no regional wall motion abnormality, grade 1 diastolic dysfunction seen without tissue Doppler evidence of raise left atrial pressure. 2. Thickened and calcified aortic valve with mean gradient across valve of 21 mmHg, valve area is 1.6 cm represents mild aortic stenosis, there is no significant aortic insufficiency. 3. Trace mitral and tricuspid regurgitation. 4. No significant pericardial effusion noted. Electronically signed by : Yves Muir MD 05/14/2021 13:10:16
[2021-05-13 09:14] LABS: Troponin I < 0.01 ng/ml (0.00-0.034)
--- NOTE | 2021-05-13 09:28 | HMH.PHAINT ---
home medication list verified using list from [facility]
--- NOTE | 2021-05-13 10:16 | HMH.CNCARD ---
History of Present Illness Consult date: 05/13/21 Requesting physician: Juan Webster Chief complaint: knee pain History of present illness: This is a 66-year-old white gentleman who presented to the emergency department after a fall. The patient states that he had been drinking vodka and he went to turn around to sit down to eat supper and fell. He reports that he injured his left knee and was having significant left knee pain because of the recent injury and he also had a previous injury to his knee that he felt like he exacerbated. The patient states that the knee pain has not improved. His x-rays of his knee have all been negative. He denies any chest pain or pressure. He does state that he gets short of breath with exertion at times. This does improve with rest. He states that he has had a recent upper respiratory infection with a cough intermittently. He has been noncompliant with his medications. He states that he has not been taking his diuretics or his blood pressure medications. He denies any fever, chills, nausea, vomiting, diarrhea, PND or orthopnea. [facility] History I have reviewed the patient's past medical history: Yes Medical History: Reports:: Cancer, Hyperlipidemia, Hypertension Denies:: Diabetes Mellitus Type 1, Diabetes Mellitus Type 2 *Have you ever received a pneumonia vaccine?: No *Have you received a flu vaccine this season?: No Other Medical History: Reports: Cataracts Other Surgeries: Yes: Hernia Repair, Skin Cancer Excision Amputation: No Fractures: No - *Social History Smoking Status: Never smoker Alcohol Intake: former Alcohol Intake Frequency:: holidays/special occasions only Substance Use Type: denies use *Occupational Status:: disabled Housing: apartment Household Members: spouse *Travel in the last 8 weeks: None Family Hx:: Cancer, Heart Attack, Hyperlipidemia, Hypertension Meds Home Medications Medication Instructions Recorded Confirmed Type atorvastatin 10 mg tablet 10 mg PO DAILY #90 tab 11/30/20 05/13/21 Rx furosemide 40 mg tablet 40 mg PO DIRECTED PRN #90 tab 11/30/20 05/13/21 Rx Aspirin [Low Dose Aspirin EC] 81 mg PO DAILY 05/13/21 05/13/21 History Levothyroxine Sodium [Synthroid 25 mcg PO DAILYDM 05/13/21 05/13/21 History 25mcg (0.025mg) tablet] Losartan Potassium [Cozaar 100mg 100 mg PO DAILY 05/13/21 05/13/21 History Tablets] Metoprolol Succinate [Metoprolol 50 mg PO DAILY 05/13/21 05/13/21 History Succinate 50mg Tablet*] Spironolactone 50 mg PO DAILY 05/13/21 05/13/21 History Allergies Allergy/AdvReac Type Severity Reaction Status Date / Time No Known Allergies Allergy Verified 02/22/21 13:15 Exam Vital signs and Labs for Last 24 Hours: Temp Pulse Resp BP Pulse Ox 99.1 F 93 H 20 156/78 H 96 05/13/21 08:00 05/13/21 08:00 05/13/21 08:00 05/13/21 08:00 05/13/21 08:00 Laboratory Results - last 24 hr 05/13/21 02:07: Specimen Source Right radial, O2 % 21, ABG pH 7.34 L, ABG pCO2 38.9, ABG pO2 80.0, ABG HCO3 20.6 L, ABG Total CO2 21.8 L, ABG O2 Saturation 94, ABG Base Excess -5.1 L, Shantanu Test Acceptable 05/13/21 02:56: Urine Color Yellow, Urine Appearance Clear, Urine pH 6.0, Ur Specific [place] <= 1.005, Urine Protein Negative, Urine Glucose (UA) Negative, Urine Ketones Negative, Urine Blood Negative, Urine Nitrate Negative, Urine Bilirubin Negative, Urine Urobilinogen 0.2, Ur Leukocyte Esterase Negative, Urine WBC Occasional, Urine Bacteria Trace 05/13/21 03:16: WBC 8.5, RBC 5.10, Hgb 16.6, Hct 52.8 H, MCV 103.5 H, MCH 32.6 H, MCHC 31.5 L, RDW 13.4, Plt Count 250, MPV 9.5, Neut % (Auto) 47.2, Lymph % (Auto) 43.3, [place] % (Auto) 5.5, Eos % (Auto) 2.2, Baso % (Auto) 1.7, Neut # (Auto) 4.0, Lymph # (Auto) 3.7, [place] # (Auto) 0.5, Eos # (Auto) 0.2, Baso # (Auto) 0.1 05/13/21 03:16: Sodium 142, Potassium 4.0, Chloride 105, Carbon Dioxide 25, Anion Gap 16.0 H, BUN 13, Creatinine 0.90, Estimated Creat Clear 111, Estimated GFR 85, Est GFR ( Amer)
--- NOTE | 2021-05-13 10:25 | HMH.HPDC ---
General - General Admission date:: 05/13/21 Discharge date: 05/13/21 *Admission Date: 05/13/21 *Chief complaint: knee pain *History of present illness: 66-year-old male presented to the emergency department after a fall. The patient states that he had been drinking vodka and he went to turn around to sit down to eat supper and fell. He reports that he injured his left knee and was having significant left knee pain because of the recent injury and he also had a previous injury to his knee that he felt like he exacerbated. He denies any chest pain or pressure. Pt states he gets short of breath with exertion at times. He has been noncompliant with his medications. He states that he has not been taking his diuretics or his blood pressure medications. He denies any fever, chills, nausea, vomiting, diarrhea, PND or orthopnea. While in ed ekg shows some changes and pt was admitted for cardiology consult and test [facility] History I have reviewed the patient's past medical history: Yes Medical History: Reports:: Cancer, Hyperlipidemia, Hypertension Denies:: Diabetes Mellitus Type 1, Diabetes Mellitus Type 2 *Have you ever received a pneumonia vaccine?: No *Have you received a flu vaccine this season?: No Other Medical History: Reports: Cataracts Other Surgeries: Yes: Hernia Repair, Skin Cancer Excision Amputation: No Fractures: No - *Social History Smoking Status: Never smoker Alcohol Intake: former Alcohol Intake Frequency:: holidays/special occasions only Substance Use Type: denies use *Occupational Status:: disabled Housing: apartment Household Members: spouse *Travel in the last 8 weeks: None Family Hx:: Cancer, Heart Attack, Hyperlipidemia, Hypertension Review of Systems - Review of Systems Review of systems:: pertinent systems reviewed and negative unless documented below - Constitutional Denies fever(s) - Eyes Denies change in vision - ENT Denies bleeding gums - *Cardiovascular Reports shortness of breath, Denies chest pain at rest - *Respiratory Reports shortness of breath - *Gastrointestinal Denies abdominal pain - *Genitourinary Denies urinary hesitancy - *Musculoskeletal Reports joint pain, Denies abnormal walking - Integumentary/Breasts Denies rash - *Neurologic Reports frequent falls, Denies localized weakness, Denies seizure-like activity - Psychiatric Denies lack of enjoyment - Endocrine Denies excessive sweating - Hematologic/Lymphatic Denies easy bruising - Allergic/Immunologic Denies itchy eyes Exam Vital signs and Labs for Last 24 Hours: Temp Pulse Resp BP Pulse Ox 99.1 F 93 H 20 156/78 H 96 05/13/21 08:00 05/13/21 08:00 05/13/21 08:00 05/13/21 08:00 05/13/21 08:00 Laboratory Results - last 24 hr 05/13/21 02:07: Specimen Source Right radial, O2 % 21, ABG pH 7.34 L, ABG pCO2 38.9, ABG pO2 80.0, ABG HCO3 20.6 L, ABG Total CO2 21.8 L, ABG O2 Saturation 94, ABG Base Excess -5.1 L, Shantanu Test Acceptable 05/13/21 02:56: Urine Color Yellow, Urine Appearance Clear, Urine pH 6.0, Ur Specific [place] <= 1.005, Urine Protein Negative, Urine Glucose (UA) Negative, Urine Ketones Negative, Urine Blood Negative, Urine Nitrate Negative, Urine Bilirubin Negative, Urine Urobilinogen 0.2, Ur Leukocyte Esterase Negative, Urine WBC Occasional, Urine Bacteria Trace 05/13/21 03:16: WBC 8.5, RBC 5.10, Hgb 16.6, Hct 52.8 H, MCV 103.5 H, MCH 32.6 H, MCHC 31.5 L, RDW 13.4, Plt Count 250, MPV 9.5, Neut % (Auto) 47.2, Lymph % (Auto) 43.3, [place] % (Auto) 5.5, Eos % (Auto) 2.2, Baso % (Auto) 1.7, Neut # (Auto) 4.0, Lymph # (Auto) 3.7, [place] # (Auto) 0.5, Eos # (Auto) 0.2, Baso # (Auto) 0.1 05/13/21 03:16: Sodium 142, Potassium 4.0, Chloride 105, Carbon Dioxide 25, Anion Gap 16.0 H, BUN 13, Creatinine 0.90, Estimated Creat Clear 111, Estimated GFR 85, Est GFR ( Amer) 102, Glucose 121 H, Calcium 9.3, Total Bilirubin 0.4, AST 66 H, ALT 52, Alkaline Phosphatase 88, Troponin I < 0.01, C-Reacti
--- NOTE | 2021-05-13 11:56 | HMH.PTEV ---
Physical Therapy Evaluation Rehab PT IP Evaluation Start: 05/13/21 07:17 Freq: ONCE Status: Active Protocol: Document 05/13/21 11:54 PHOEricaMANUELA (Rec: 05/13/21 11:56 PHORNE [id number]) Subjective/History History History 66 yowm adm to [facility] with falls and alcohol intoxication. He reports he lives with , no steps to enter, independent using walker for all mobility. Subjective Subjective Pt with no c/o this am. Rehab PT IP Eval Objective Appearance Patient Behavior Appropriate Patient Orientation Person,Place,Time Difficulty following instructions none Speech Pattern Clear Ambulation Patient Able to Ambulate Yes Ambulation Observation IP General Gait Pattern Observation No Deviations/Normal Ambulation Distance (feet) 30 Ambulation Assistive Device Rolling Walker Ambulation Ability Independent Balance Ability to Arise Able, uses arms to help Sitting Balance Steady, safe Standing Balance Steady, wide stance Dynamic Sitting Balance Ability Good Dynamic Standing Balance Ability Good Transfers Bed Transfer Ability Independent Chair Transfer Ability Independent Sit to Stand Bed Transfer Ability Independent Sit to Stand Chair Transfer Ability Independent Rehab PT IP prob,goals,plan Problems Date of Evaluation: 05/13/21 Discharge Plan PT Discharge Plan Pt appears to be at baseline for all mobility and is appropriate to return home once medically stable. G -code Required No Eval Complexity Eval Charge Codes 15707 - Moderate Complexity PHYSICIAN CERTIFICATION: I certify the specified therapy services for Domingo Oh are required, authorized, and reviewed every 30 days.
--- NOTE | 2021-05-13 12:12 | PC.NURSE ---
Went over discharge paperwork with patient. He verbalized understanding. He says his should be here sometime to pick him up.
== END 2021-05-13 14:27 | disposition home or self-care (01) ==
LOC: ER 06:52 → 2ND 07:44
PROVIDERS: Admitting Provider Emergency Medicine; Emergency Provider Emergency Medicine; PCP Emergency Medicine; Visit Provider Emergency Medicine
DX: F10.920 Alcohol use, unspecified with intoxication, uncomplicated (principal); Z79.899 Other long term (current) drug therapy; I10 Essential (primary) hypertension; E78.5 Hyperlipidemia, unspecified; I65.23 Occlusion and stenosis of bilateral carotid arteries; I87.2 Venous insufficiency (chronic) (peripheral); M25.562 Pain in left knee; Y90.8 Blood alcohol level of 240 mg/100 ml or more; R06.9 Unspecified abnormalities of breathing
CPT/HCPCS: G0378; 70450; 71045; 72125; 72170; 73562; 74176; 80053; 81001; 82803; 83735; 83880; 84145; 84436; 84443; 84484; 85025; 85651; 86140; 93005; 93306; 96365; 97162; 99285; C9803; U0003; U0005

== ENCOUNTER → 2021-08-19 07:10 | Outpatient (CLI) | payer MEDICARE, MEDICAID, SELFPAY ==
[2021-08-18 17:47] LABS: Anion Gap 12.8 mEq/L (5-15); Blood Urea Nitrogen 10 mg/dl (9-20); Calcium 9.1 mg/dl (8.4-10.2); Carbon Dioxide 25 mmol/L (22.0-30.0); Chloride 104 mmol/L (98-107); Estimated Glomerular Filt Rate 113 ml/min (>60); GFR (African American) 137 ML/MIN (>60); Glucose 131 mg/dl (74-100); Potassium 3.8 mmoL/L (3.5-5.1); Sodium 138 mmol/L (136-145)
[2021-08-18 18:01] LABS: T4 (Thyroxine) 11.2 ug/dl (5.53-11.0)
[2021-08-18 18:14] LABS: Thyroid Stimulating Hormone 4.53 uIU/mL (0.465-4.68)
== END ==
PROVIDERS: PCP Nurse Practitioner Family; Visit Provider Nurse Practitioner Family
DX: E03.9 Hypothyroidism, unspecified (principal); R60.0 Localized edema
CPT/HCPCS: 80048; 84436; 84443

== ENCOUNTER → 2022-12-01 14:06 | Outpatient (CLI) | payer MEDICARE, MEDICAID, SELFPAY ==
[2022-12-01 15:38] LABS: Basophils % 0.4 % (0.1-2.0); Eosinophils # 0.2 K/mm3 (0.0-0.4); Eosinophils % 2.1 % (0.1-12.0); Hematocrit 48.5 % (42.0-52.0); Hemoglobin 15.8 g/dL (14.1-18.0); Lymphocytes # 2.3 K/mm3 (0.7-4.5); Lymphocytes % 30.2 % (10-50); Mean Corpuscular HGB Conc 32.6 g/dL (31.8-35.4); Mean Corpuscular Hemoglobin 31.1 pg (27.0-31.2); Mean Corpuscular Volume 95.3 fl (80-94); Monocytes # 0.6 K/mm3 (0.1-1.0); Monocytes % 7.8 % (1.7-9.3); Neutrophils # 4.6 K/mm3 (1.8-7.8); Neutrophils % 59.4 % (37.0-80.0); Platelet Count 155 K/mm3 (142-424); Red Blood Count 5.08 M/mm3 (4.60-6.20); Red Cell Distribution Width 12.8 % (11.5-17.5); White Blood Count 7.7 K/mm3 (4.8-10.8)
[2022-12-01 16:45] LABS: Alanine Aminotransferase 22 U/L (12-78); Albumin Level 3.7 g/dl (3.5-5.0); Alkaline Phosphatase 87 U/L (38-126); Anion Gap 9.9 mEq/L (5-15); Aspartate Amino Transferase 29 U/L (17-59); Bilirubin,Direct 0.1 mg/dl (0.0-0.4); Bilirubin,Indirect 0.3 mg/dL (0.0-0.9); Bilirubin,Total 0.4 mg/dl (0.2-1.3); Bilirubin,Unconjugated 0.3 mg/dL (0.0-1.1); Blood Urea Nitrogen 13 mg/dl (9-20); Calcium 9.2 mg/dl (8.4-10.2); Carbon Dioxide 29 mmol/L (22.0-30.0); Chloride 108 mmol/L (98-107); Cholesterol 148 mg/dl (140-200); Estimated Glomerular Filt Rate 135 ml/min (>60); GFR (African American) 163 ML/MIN (>60); Glucose 108 mg/dl (74-100); HDL Cholesterol 49 mg/dl (40-60); Magnesium 1.8 mg/dl (1.6-2.3); Potassium 4.9 mmoL/L (3.5-5.1); Sodium 142 mmol/L (136-145); Total Protein,Serum 6.9 g/dl (6.3-8.2); Triglycerides 42 mg/dl (30-150); VLDL Cholesterol 8 mg/dL (0-40)
[2022-12-01 16:56] LABS: Direct LDL Cholesterol 81.08 mg/dL (100-129)
[2022-12-01 17:08] LABS: Free T4 (Free Thyroxine) 1.11 ng/dl (0.78-2.19)
[2022-12-01 17:15] LABS: Thyroid Stimulating Hormone 1.43 uIU/mL (0.465-4.68)
== END ==
PROVIDERS: PCP Emergency Medicine; Visit Provider Physician Assistant
DX: E66.01 Morbid (severe) obesity due to excess calories (principal); E78.2 Mixed hyperlipidemia; I10 Essential (primary) hypertension; I35.0 Nonrheumatic aortic (valve) stenosis; I65.23 Occlusion and stenosis of bilateral carotid arteries; Z68.37 Body mass index [BMI] 37.0-37.9, adult
CPT/HCPCS: 36415; 80048; 80061; 80076; 83735; 84439; 84443; 85025

== ENCOUNTER 2023-07-18 15:06 | Outpatient (POV) | payer MEDICARE, MEDICAID, SELFPAY | END 2023-07-18 23:59 | disposition home or self-care (01) | LOC: SC 15:06 | PROVIDERS: PCP Internal Medicine; Visit Provider Dermatology | DX: Z00.00 Encounter for general adult medical examination without abnormal findings (principal) ==

== ENCOUNTER 2023-11-29 14:20 | Observation (INO) | payer MEDICARE, MEDICAID, SELFPAY ==
[2023-11-29 14:20] VITALS: BP 96/43; PULSE 82; RESP 18; TEMP 36.6; O2SAT 98; BMI 29.9
--- NOTE | 2023-11-29 14:25 | ED_ITS ---
Discharge Plan Disposition Patient Disposition: Admitted Condition: Fair Clinical Impressions Clinical Impression: Acute nontraumatic kidney injury, Cellulitis, Immunosuppression Discharge ED Provider: Deniz Angelo General Adult HPI <LISA Maria - Last Filed: 11/29/23 16:12> General Chief complaint: Weakness Stated complaint: Hypotension Time Seen by Provider: 11/29/23 14:25 History of Present Illness HPI narrative: Patient presents for evaluation of hypotension. 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 Patient has home health and was noted to be significantly hypotensive today with a blood pressure in the 80s systolic. Patient did not have any complaints himself however he was sent to the emergency department for evaluation. On arrival patient hypotensive but with a heart rate of 80. He was able to transfer with assistance from ambo stretcher to bed. He denies any chest pain shortness of breath fever chills hemoptysis hematochezia melena nausea vomiting diarrhea. He does report that his right lower extremity is extremely painful and has gotten increasingly so over the past few days. He was diagnosed with a DVT 2 weeks ago he says and is on Eliquis. Related Data Home Medications ?Medication ?Instructions ?Recorded ?Confirmed apixaban 5 mg tablet (Eliquis) 5 mg PO 11/08/23 11/08/23 clindamycin phosphate 1 % topical topical 11/08/23 11/08/23 gel doxycycline hyclate 100 mg capsule 100 mg PO 11/08/23 11/08/23 folic acid 1 mg tablet 1 mg PO 11/08/23 11/08/23 hydrocortisone 2.5 % lotion topical 11/08/23 11/08/23 linezolid 600 mg tablet 600 mg PO 11/08/23 11/08/23 metronidazole 500 mg tablet 500 mg PO 11/08/23 11/08/23 ondansetron 8 mg disintegrating 8 mg PO 11/08/23 11/08/23 tablet oxycodone 10 mg tablet 10 mg PO 11/08/23 11/08/23 prochlorperazine maleate 10 mg 10 mg PO 11/08/23 11/08/23 tablet Previous Rx's ?Medication ?Instructions ?Recorded furosemide 40 mg tablet (Lasix) 40 mg PO DAILY PRN edema #90 tabs 05/19/22 spironolactone 50 mg tablet 50 mg PO DAILY fluid retention #90 05/19/22 tabs atorvastatin 10 mg tablet See Rx Instructions .Route 10/05/22 .COMPLEX #90 ea levothyroxine 25 mcg tablet See Rx Instructions .Route 12/28/22 .COMPLEX #90 tabs metoprolol succinate 25 mg See Rx Instructions .Route 10/09/23 tablet,extended release 24 hr .COMPLEX #90 tabs losartan 25 mg tablet 25 mg PO DAILY #30 tabs 11/08/23 melatonin 5 mg tablet 5 mg PO HS PRN sleep #30 tabs 11/09/23 Allergies Allergy/AdvReac Type Severity Reaction Status Date / Time No Known Allergies Allergy Verified 11/08/23 13:55 PFS <LISA Maria - Last Filed: 11/29/23 16:12> [facility] Disclaimer: The information contained in this section may have been updated after the patient was seen, as this information can be updated by other users. Medical History Cancer HLD (hyperlipidemia) HTN (hypertension) Surgical History H/O hernia repair Social History Smoking Status: Never smoker alcohol intake: current alcohol intake frequency: a few times a week substance use type: denies use current occupational status: disabled Travel in the last 8 weeks: None household members: spouse housing: apartment current occupational exposures/hazards: No caffeine: No Other Medical History Have you received the Flu Vaccine for this season: No Have you received the Pneumonia Vaccine: No <LISA Maria - Last Filed: 11/29/23 16:12> ROS Obtained: Yes Systems reviewed as appropriate & no additional complaints except as documented Physical Exam <LISA Maria - Last Filed: 11/29/23 16:12> General General appearance: alert and in no apparent distress Respiratory Respiratory exam: Present normal lung sounds bilaterally Cardiovascular Cardiovascular exam: Present regular rate Neurological Exam Neurological exam: Present alert and oriented X3 Medical Decision Making <LISA Maria - Last Filed: 11/29/23 16:12> Medical Records Medical records reviewed: Yes I reviewed the patient's medical records. Screening: Per USPSTF and CDC recommendations, given the prevalence of disease in our region, it is our hospital?s policy to screen for HIV and viral Hepatitis for all patients aged 18 and over and those with ongoing risk factors. [place]o Inquiry Pt receiving controlled substance: No Vital Signs: 11/29/23 14:20 11/29/23 16:25 Temperature 97.9 F 97.9 F Temperature Source Oral Oral Pulse Rate 74 Pulse Rate [Apical] 82 Respiratory Rate 18 18 Blood Pressure 104/69 L Blood Pressure [Right Arm] 96/43 L Blood Pressure Mean [Right Arm] 60 Blood Pressure Source Automatic Cuff Blood Pressure Source [Right Arm] Automatic Cuff Blood Pressure Position Sitting Blood Pressure Position [Right Arm] Sitting 02 Sat by Pulse Oximetry 98 Oxygen Delivery Method Room Air Lab Data Lab results reviewed: Yes I reviewed the patient's lab results. Lab Results 11/29/23 14:18: WBC 9.9, RBC 3.76 L, Hgb 11.9 L, Hct 37.3 L, MCV 99.1 H, MCH 31.6 H, MCHC 31.9, RDW 14.3, Plt Count 288, MPV 8.4, Neut % (Auto) 53.0, Lymph % (Auto) 36.6, [place] % (Auto) 8.1, Eos % (Auto) 1.8, Baso % (Auto) 0.5, Neut # (Auto) 5.2, Lymph # (Auto) 3.6, [place] # (Auto) 0.8, Eos # (Auto) 0.2, Baso # (Auto) 0.1, PT 10.9, INR 0.97, Sodium 133 L, Potassium 4.5, Chloride 99, Carbon Dioxide 29, Anion Gap 9.5, BUN 27 H, Creatinine 1.70 H, Estimated Creat Clear 49, Estimated GFR 40 L, Est GFR ( Amer) 49 L, Glucose 115 H, Calcium 9.4, Magnesium 2.1, Total Bilirubin 0.7, AST 35, ALT 28, Alkaline Phosphatase 83, C- Reactive Protein 26.1 H, NT-Pro-B Natriuret Pep 577 H, Total Protein 7.5, Albumin 3.8, Globulin 3.7 H, Albumin/Globulin Ratio 1.0 L, Procalcitonin 0.100 11/29/23 14:29: VBG pH 7.30 L, VBG pCO2 57.8 H, VBG pO2 32.7, VBG HCO3 27.6, VBG Total CO2 29.4 H, VBG O2 Saturation 57.5, VBG Base Excess 1.1, VBG Lactic Acid 2.8 H 11/29/23 15:54: Urine Color Yellow, Urine Appearance Clear, Urine pH 6.0, Ur Specific [place] 1.015, Urine Protein Negative, Urine Glucose (UA) Negative, Urine Ketones Negative, Urine Blood Negative, Urine Nitrate Negative, Urine Bilirubin Negative, Urine Urobilinogen 1.0, Ur Leukocyte Esterase Negative, Urine RBC None, Urine WBC Occasional, Ur Squamous Epith Cells Occasional, Urine Bacteria Trace, Hyaline Casts Occ 11/29/23 14:18 11/29/23 14:18 Orders (Tests/Meds): ED MEDICATIONS Generic Name Dose Route Start Last Admin Trade Name Freq PRN Reason Stop Dose Admin Acetaminophen 650 mg 11/29/23 15:47 Acetaminophen 325mg Tab PO 12/29/23 15:46 Q4HP PRN Fever or Mild Pain (1-3) Enoxaparin Sodium 40 mg 11/30/23 09:00 Enoxaparin 40mg/0.4ml Syringe SQ 12/30/23 08:59 DAILY MACKENZIE Vancomycin/PEG/NADA/Lysine/Water 1.5 gm in 300 mls @ 150 mls/hr 11/29/23 15:45 Vancomycin 1.5gm/300ml (Peg) Premix IV 11/29/23 17:44 ONCE ONE Miscellaneous 1 each 11/29/23 15:30 Vancomycin Consult Request NOTAPPLIC 12/29/23 15:29 CONSULT PHARMACY [facility] Discontinued Medications Generic Name Dose Route Start Last Admin Trade Name Freq PRN Reason Stop Dose Admin Lactated Ringer's 1,000 mls @ 999 mls/hr 11/29/23 14:28 11/29/23 14:43 Lactated Ringer's 1000 Ml Bag IV 11/29/23 15:28 999 mls/hr .Q1H1M ONE Administration Cefepime HCl 2 gm/ Sodium 100 mls @ 200 mls/hr 11/29/23 15:29 Chloride IV 11/29/23 15:58 ONCE ONE Metronidazole 500 mg in 100 mls @ 100 mls/hr 11/29/23 15:29 11/29/23 15:46 Flagyl 500mg/100ml Ivpb IV 11/29/23 16:28 100 mls/hr ONCE ONE Administration ORDERS Category Date Time Status POCUS Point of Care (ER Only) Stat Exams 11/29/23 14:49 Completed XR chest portable Stat Exams 11/29/23 15:16 Completed BNP [NT Pro Brain Natriuretic Pep.] Stat Lab 11/29/23 14:18 Completed Basic Metabolic Panel AMLAB Lab 11/30/23 06:00 Ordered Basic Metabolic Panel AMLAB Lab 12/01/23 06:00 Ordered Basic Metabolic Panel AMLAB Lab 12/02/23 06:00 Ordered Basic Metabolic Panel AMLAB Lab 12/03/23 06:00 Ordered Basic Metabolic Panel AMLAB Lab 12/04/23 06:00 Ordered CBC w/Auto Diff [Complete Blood Count Auto Diff] Stat Lab 11/29/23 14:18 Results CMP [Comprehensive Metabolic Panel] Stat Lab 11/29/23 14:18 Completed CRP [C-Reactive Protein] Stat Lab 11/29/23 14:18 Completed Complete Blood Count Auto Diff AMLAB Lab 11/30/23 06:00 Ordered Complete Blood Count Auto Diff AMLAB Lab 12/01/23 06:00 Ordered Complete Blood Count Auto Diff AMLAB Lab 12/02/23 06:00 Ordered Complete Blood Count Auto Diff AMLAB Lab 12/03/23 06:00 Ordered Complete Blood Count Auto Diff AMLAB Lab 12/04/23 06:00 Ordered ESR [Erythrocyte Sedimentation Rate] Stat Lab 11/29/23 14:18 Results INR [Prothrombin Time INR] Stat Lab 11/29/23 14:18 Completed Magnesium Stat Lab 11/29/23 14:18 Completed Procalcitonin Stat Lab 11/29/23 14:18 Completed UA [Urinalysis and Microscopic] Stat Lab 11/29/23 15:54 Completed Blood Culture Stat Micro 11/29/23 15:40 Received VBG [Venous Blood Gas] Stat RT 11/29/23 14:29 Completed Medical Decision Narrative: In summary patient is a 68-year-old male who presents to the emergency department for evaluation of hypotension. Patient is on arrival patient's systolic blood pressure is 96 diastolic 43 with a heart rate of 82 respiratory rate is 18 O2 sats 98% on room air upon arrival, and he is afebrile. Physical exam is remarkable for a morbidly obese unwell appearing 68-year-old gentleman who otherwise is in no acute distress. He has bilateral 3+ taut pitting edema of the lower extremities with erythema to both however right is more pronounced and is tender to palpation circumferentially without skin breakdown fluctuance noted patient does have palpable bilateral lower extremity pulses. Breath sounds are clear and equal bilaterally to the bases patient has normal sinus rhythm on the bedside monitor. Differential diagnosis includes polypharmacy of antihypertensives, sepsis in immunosuppressed patient, CHF etc. Initial workup will be conducted with hematologic labs twelve-lead EKG plain film chest x-ray blood cultures. Initial interventions include crystalloid bolus. Initial workup reviewed by me shows the patient has a new ROBERT and a GFR of 40, he has a normal white count with an absolute neutrophil count of 5.2 and immunosuppressed patient, procalcitonin is 0.1, VBG shows a pH of 7.3 pCO2 of 57.8 with venous blood gas lactic acid of 2.8, CRP of 26 and an NT proBNP of 577. Given this I had an interactive discussion with hospital medicine about patient management and he will be admitted for further evaluation and care. Patient and family are understanding and agreeable. <Jeffry Oh MD - Last Filed: 11/29/23 15:11> Vital Signs: 11/29/23 14:20 11/29/23 16:25 Temperature 97.9 F 97.9 F Temperature Source Oral Oral Pulse Rate 74 Pulse Rate [Apical] 82 Respiratory Rate 18 18 Blood Pressure 104/69 L Blood Pressure [Right Arm] 96/43 L Blood Pressure Mean [Right Arm] 60 Blood Pressure Source Automatic Cuff Blood Pressure Source [Right Arm] Automatic Cuff Blood Pressure Position Sitting Blood Pressure Position [Right Arm] Sitting 02 Sat by Pulse Oximetry 98 Oxygen Delivery Method Room Air Lab Data Lab Results 11/29/23 14:18: WBC 9.9, RBC 3.76 L, Hgb 11.9 L, Hct 37.3 L, MCV 99.1 H, MCH 31.6 H, MCHC 31.9, RDW 14.3, Plt Count 288, MPV 8.4, Neut % (Auto) 53.0, Lymph % (Auto) 36.6, [place] % (Auto) 8.1, Eos % (Auto) 1.8, Baso % (Auto) 0.5, Neut # (Auto) 5.2, Lymph # (Auto) 3.6, [place] # (Auto) 0.8, Eos # (Auto) 0.2, Baso # (Auto) 0.1, PT 10.9, INR 0.97, Sodium 133 L, Potassium 4.5, Chloride 99, Carbon Dioxide 29, Anion Gap 9.5, BUN 27 H, Creatinine 1.70 H, Estimated Creat Clear 49, Estimated GFR 40 L, Est GFR ( Amer) 49 L, Glucose 115 H, Calcium 9.4, Magnesium 2.1, Total Bilirubin 0.7, AST 35, ALT 28, Alkaline Phosphatase 83, C- Reactive Protein 26.1 H, NT-Pro-B Natriuret Pep 577 H, Total Protein 7.5, Albumin 3.8, Globulin 3.7 H, Albumin/Globulin Ratio 1.0 L, Procalcitonin 0.100 11/29/23 14:29: VBG pH 7.30 L, VBG pCO2 57.8 H, VBG pO2 32.7, VBG HCO3 27.6, VBG Total CO2 29.4 H, VBG O2 Saturation 57.5, VBG Base Excess 1.1, VBG Lactic Acid 2.8 H 11/29/23 15:54: Urine Color Yellow, Urine Appearance Clear, Urine pH 6.0, Ur Specific [place] 1.015, Urine Protein Negative, Urine Glucose (UA) Negative, Urine Ketones Negative, Urine Blood Negative, Urine Nitrate Negative, Urine Bilirubin Negative, Urine Urobilinogen 1.0, Ur Leukocyte Esterase Negative, Urine RBC None, Urine WBC Occasional, Ur Squamous Epith Cells Occasional, Urine Bacteria Trace, Hyaline Casts Occ Orders (Tests/Meds): ED MEDICATIONS Generic Name Dose Route Start Last Admin Trade Name Freq PRN Reason Stop Dose Admin Acetaminophen 650 mg 11/29/23 15:47 Acetaminophen 325mg Tab PO 12/29/23 15:46 Q4HP PRN Fever or Mild Pain (1-3) Enoxaparin Sodium 40 mg 11/30/23 09:00 Enoxaparin 40mg/0.4ml Syringe SQ 12/30/23 08:59 DAILY MACKENZIE Vancomycin/PEG/[place]/Lysine/Water 1.5 gm in 300 mls @ 150 mls/hr 11/29/23 15:45 Vancomycin 1.5gm/300ml (Peg) Premix IV 11/29/23 17:44 ONCE ONE Miscellaneous 1 each 11/29/23 15:30 Vancomycin Consult Request NOTAPPLIC 12/29/23 15:29 CONSULT PHARMACY [facility] Discontinued Medications Generic Name Dose Route Start Last Admin Trade Name Freq PRN Reason Stop Dose Admin Lactated Ringer's 1,000 mls @ 999 mls/hr 11/29/23 14:28 11/29/23 14:43 Lactated Ringer's 1000 Ml Bag IV 11/29/23 15:28 999 mls/hr .Q1H1M ONE Administration Cefepime HCl 2 gm/ Sodium 100 mls @ 200 mls/hr 11/29/23 15:29 Chloride IV 11/29/23 15:58 ONCE ONE Metronidazole 500 mg in 100 mls @ 100 mls/hr 11/29/23 15:29 11/29/23 15:46 Flagyl 500mg/100ml Ivpb IV 11/29/23 16:28 100 mls/hr ONCE ONE Administration ORDERS Category Date Time Status POCUS Point of Care (ER Only) Stat Exams 11/29/23 14:49 Completed XR chest portable Stat Exams 11/29/23 15:16 Completed BNP [NT Pro Brain Natriuretic Pep.] Stat Lab 11/29/23 14:18 Completed Basic Metabolic Panel AMLAB Lab 11/30/23 06:00 Ordered Basic Metabolic Panel AMLAB Lab 12/01/23 06:00 Ordered Basic Metabolic Panel AMLAB Lab 12/02/23 06:00 Ordered Basic Metabolic Panel AMLAB Lab 12/03/23 06:00 Ordered Basic Metabolic Panel AMLAB Lab 12/04/23 06:00 Ordered CBC w/Auto Diff [Complete Blood Count Auto Diff] Stat Lab 11/29/23 14:18 Results CMP [Comprehensive Metabolic Panel] Stat Lab 11/29/23 14:18 Completed CRP [C-Reactive Protein] Stat Lab 11/29/23 14:18 Completed Complete Blood Count Auto Diff AMLAB Lab 11/30/23 06:00 Ordered Complete Blood Count Auto Diff AMLAB Lab 12/01/23 06:00 Ordered Complete Blood Count Auto Diff AMLAB Lab 12/02/23 06:00 Ordered Complete Blood Count Auto Diff AMLAB Lab 12/03/23 06:00 Ordered Complete Blood Count Auto Diff AMLAB Lab 12/04/23 06:00 Ordered ESR [Erythrocyte Sedimentation Rate] Stat Lab 11/29/23 14:18 Results INR [Prothrombin Time INR] Stat Lab 11/29/23 14:18 Completed Magnesium Stat Lab 11/29/23 14:18 Completed Procalcitonin Stat Lab 11/29/23 14:18 Completed UA [Urinalysis and Microscopic] Stat Lab 11/29/23 15:54 Completed Blood Culture Stat Micro 11/29/23 15:40 Received VBG [Venous Blood Gas] Stat RT 11/29/23 14:29 Completed ECG Data Tracing #1: Independently interpreted by me rate of 79, rhythm is regular, axis is normal, no ST elevation in anatomical contiguous leads. <Deniz Angelo MD - Last Filed: 11/29/23 16:49> Vital Signs: 11/29/23 14:20 11/29/23 16:25 Temperature 97.9 F 97.9 F Temperature Source Oral Oral Pulse Rate 74 Pulse Rate [Apical] 82 Respiratory Rate 18 18 Blood Pressure 104/69 L Blood Pressure [Right Arm] 96/43 L Blood Pressure Mean [Right Arm] 60 Blood Pressure Source Automatic Cuff Blood Pressure Source [Right Arm] Automatic Cuff Blood Pressure Position Sitting Blood Pressure Position [Right Arm] Sitting 02 Sat by Pulse Oximetry 98 Oxygen Delivery Method Room Air Lab Data Lab Results 11/29/23 14:18: WBC 9.9, RBC 3.76 L, Hgb 11.9 L, Hct 37.3 L, MCV 99.1 H, MCH 31.6 H, MCHC 31.9, RDW 14.3, Plt Count 288, MPV 8.4, Neut % (Auto) 53.0, Lymph % (Auto) 36.6, [place] % (Auto) 8.1, Eos % (Auto) 1.8, Baso % (Auto) 0.5, Neut # (Auto) 5.2, Lymph # (Auto) 3.6, [place] # (Auto) 0.8, Eos # (Auto) 0.2, Baso # (Auto) 0.1, PT 10.9, INR 0.97, Sodium 133 L, Potassium 4.5, Chloride 99, Carbon Dioxide 29, Anion Gap 9.5, BUN 27 H, Creatinine 1.70 H, Estimated Creat Clear 49, Estimated GFR 40 L, Est GFR ( Amer) 49 L, Glucose 115 H, Calcium 9.4, Magnesium 2.1, Total Bilirubin 0.7, AST 35, ALT 28, Alkaline Phosphatase 83, C- Reactive Protein 26.1 H, NT-Pro-B Natriuret Pep 577 H, Total Protein 7.5, Albumin 3.8, Globulin 3.7 H, Albumin/Globulin Ratio 1.0 L, Procalcitonin 0.100 11/29/23 14:29: VBG pH 7.30 L, VBG pCO2 57.8 H, VBG pO2 32.7, VBG HCO3 27.6, VBG Total CO2 29.4 H, VBG O2 Saturation 57.5, VBG Base Excess 1.1, VBG Lactic Acid 2.8 H 11/29/23 15:54: Urine Color Yellow, Urine Appearance Clear, Urine pH 6.0, Ur Specific [place] 1.015, Urine Protein Negative, Urine Glucose (UA) Negative, Urine Ketones Negative, Urine Blood Negative, Urine Nitrate Negative, Urine Bilirubin Negative, Urine Urobilinogen 1.0, Ur Leukocyte Esterase Negative, Urine RBC None, Urine WBC Occasional, Ur Squamous Epith Cells Occasional, Urine Bacteria Trace, Hyaline Casts Occ Orders (Tests/Meds): ED MEDICATIONS Generic Name Dose Route Start Last Admin Trade Name Freq PRN Reason Stop Dose Admin Acetaminophen 650 mg 11/29/23 15:47 Acetaminophen 325mg Tab PO 12/29/23 15:46 Q4HP PRN Fever or Mild Pain (1-3) Enoxaparin Sodium 40 mg 11/30/23 09:00 Enoxaparin 40mg/0.4ml Syringe SQ 12/30/23 08:59 DAILY [facility] Vancomycin/PEG/NADA/Lysine/Water 1.5 gm in 300 mls @ 150 mls/hr 11/29/23 15:45 Vancomycin 1.5gm/300ml (Peg) Premix IV 11/29/23 17:44 ONCE ONE Miscellaneous 1 each 11/29/23 15:30 Vancomycin Consult Request NOTAPPLIC 12/29/23 15:29 CONSULT PHARMACY [facility] Discontinued Medications Generic Name Dose Route Start Last Admin Trade Name Freq PRN Reason Stop Dose Admin Lactated Ringer's 1,000 mls @ 999 mls/hr 11/29/23 14:28 11/29/23 14:43 Lactated Ringer's 1000 Ml Bag IV 11/29/23 15:28 999 mls/hr .Q1H1M ONE Administration Cefepime HCl 2 gm/ Sodium 100 mls @ 200 mls/hr 11/29/23 15:29 Chloride IV 11/29/23 15:58 ONCE ONE Metronidazole 500 mg in 100 mls @ 100 mls/hr 11/29/23 15:29 11/29/23 15:46 Flagyl 500mg/100ml Ivpb IV 11/29/23 16:28 100 mls/hr ONCE ONE Administration ORDERS Category Date Time Status POCUS Point of Care (ER Only) Stat Exams 11/29/23 14:49 Completed XR chest portable Stat Exams 11/29/23 15:16 Completed BNP [NT Pro Brain Natriuretic Pep.] Stat Lab 11/29/23 14:18 Completed Basic Metabolic Panel AMLAB Lab 11/30/23 06:00 Ordered Basic Metabolic Panel AMLAB Lab 12/01/23 06:00 Ordered Basic Metabolic Panel AMLAB Lab 12/02/23 06:00 Ordered Basic Metabolic Panel AMLAB Lab 12/03/23 06:00 Ordered Basic Metabolic Panel AMLAB Lab 12/04/23 06:00 Ordered CBC w/Auto Diff [Complete Blood Count Auto Diff] Stat Lab 11/29/23 14:18 Results CMP [Comprehensive Metabolic Panel] Stat Lab 11/29/23 14:18 Completed CRP [C-Reactive Protein] Stat Lab 11/29/23 14:18 Completed Complete Blood Count Auto Diff AMLAB Lab 11/30/23 06:00 Ordered Complete Blood Count Auto Diff AMLAB Lab 12/01/23 06:00 Ordered Complete Blood Count Auto Diff AMLAB Lab 12/02/23 06:00 Ordered Complete Blood Count Auto Diff AMLAB Lab 12/03/23 06:00 Ordered Complete Blood Count Auto Diff AMLAB Lab 12/04/23 06:00 Ordered ESR [Erythrocyte Sedimentation Rate] Stat Lab 11/29/23 14:18 Results INR [Prothrombin Time INR] Stat Lab 11/29/23 14:18 Completed Magnesium Stat Lab 11/29/23 14:18 Completed Procalcitonin Stat Lab 11/29/23 14:18 Completed UA [Urinalysis and Microscopic] Stat Lab 11/29/23 15:54 Completed Blood Culture Stat Micro 11/29/23 15:40 Received VBG [Venous Blood Gas] Stat RT 11/29/23 14:29 Completed Medical Decision Narrative: In summary patient is a 68-year-old male who presents to the emergency department for evaluation of hypotension. Patient is on arrival patient's systolic blood pressure is 96 diastolic 43 with a heart rate of 82 respiratory rate is 18 O2 sats 98% on room air upon arrival, and he is afebrile. Physical exam is remarkable for a morbidly obese unwell appearing 68-year-old gentleman who otherwise is in no acute distress. He has bilateral 3+ taut pitting edema of the lower extremities with erythema to both however right is more pronounced and is tender to palpation circumferentially without skin breakdown fluctuance noted patient does have palpable bilateral lower extremity pulses. Breath sounds are clear and equal bilaterally to the bases patient has normal sinus rhythm on the bedside monitor. Differential diagnosis includes polypharmacy of antihypertensives, sepsis in immunosuppressed patient, CHF etc. Initial workup will be conducted with hematologic labs twelve-lead EKG plain film chest x-ray blood cultures. Initial interventions include crystalloid bolus. Initial workup reviewed by me shows the patient has a new ROBERT and a GFR of 40, he has a normal white count with an absolute neutrophil count of 5.2 and immunosuppressed patient, procalcitonin is 0.1, VBG shows a pH of 7.3 pCO2 of 57.8 with venous blood gas lactic acid of 2.8, CRP of 26 and an NT proBNP of 577. Given this I had an interactive discussion with hospital medicine about patient management and he will be admitted for further evaluation and care. Patient and family are understanding and agreeable. I was consulted by the NERY, and we discussed the complexity of the problems being addressed. I approved the treatment and management plan for this patient's care in the Emergency Department, thus performing a substantive portion of the medical decision making. Deniz Angelo MD Critical Care <LISA Maria - Last Filed: 11/29/23 16:12> Critical Care Time Critical Care Time: No
--- NOTE | 2023-11-29 14:25 | ECG_ITS ---
APPROVED REPORT Exam: Resting ECG HR:79 bpm ECG Measurements Heart Rate 79 AXES FL 179 P 35 QRSd 94 QRS 21 QT 439 T 40 QTc 473 Conclusion Sinus rhythm Prolonged QT Electronically signed by : HORTENCIA BEAL, 11/29/2023 23:07:32
[2023-11-29 14:36] LABS: VBG Base Excess 1.1 mmol/L (-2.4-2.3); VBG HCO3 27.6 mmol/L (23-30); VBG Oxygen Saturation 57.5 % (50-70); VBG PCO2 57.8 mmol/L (35-51); VBG PO2 32.7 mmol/L (28-40); VBG Total CO2 29.4 mmol/L (23-27)
[2023-11-29 14:38] LABS: Lactate Venous 2.8 mmol/L (0.4-2.0)
[2023-11-29] MEDS: LACTATED RINGERS 1000ML 1,000 ML 999 ML IV (14:43)
[2023-11-29 14:44] LABS: Alanine Aminotransferase 28 U/L (12-78); Albumin Level 3.8 g/dl (3.5-5.0); Alkaline Phosphatase 83 U/L (38-126); Anion Gap 9.5 mEq/L (5-15); Aspartate Amino Transferase 35 U/L (17-59); Bilirubin,Total 0.7 mg/dl (0.2-1.3); Blood Urea Nitrogen 27 mg/dl (9-20); Calcium 9.4 mg/dl (8.4-10.2); Carbon Dioxide 29 mmol/L (22.0-30.0); Chloride 99 mmol/L (98-107); Creatinine Clearance Estimated 49 mL/min (50-200); Estimated Glomerular Filt Rate 40 ml/min (>60); GFR (African American) 49 ML/MIN (>60); Globulin 3.7 g/dL (1.3-3.2); Glucose 115 mg/dl (74-100); Potassium 4.5 mmoL/L (3.5-5.1); Sodium 133 mmol/L (136-145); Total Protein,Serum 7.5 g/dl (6.3-8.2)
[2023-11-29 14:45] LABS: Magnesium 2.1 mg/dl (1.6-2.3)
[2023-11-29 14:47] LABS: Basophils # 0.1 K/mm3 (0-0.2); Basophils % 0.5 % (0.1-2.0); Eosinophils # 0.2 K/mm3 (0.0-0.4); Eosinophils % 1.8 % (0.1-12.0); Hematocrit 37.3 % (42.0-52.0); Hemoglobin 11.9 g/dL (14.1-18.0); INR 0.97 (0.9-1.1); Lymphocytes # 3.6 K/mm3 (0.7-4.5); Lymphocytes % 36.6 % (10-50); Mean Corpuscular HGB Conc 31.9 g/dL (31.8-35.4); Mean Corpuscular Hemoglobin 31.6 pg (27.0-31.2); Mean Corpuscular Volume 99.1 fl (80-94); Mean Platelet Volume 8.4 fl (7.4-10.4); Monocytes # 0.8 K/mm3 (0.1-1.0); Monocytes % 8.1 % (1.7-9.3); Neutrophils # 5.2 K/mm3 (1.8-7.8); Platelet Count 288 K/mm3 (142-424); Prothrombin Time 10.9 seconds (10.1-12.5); Red Blood Count 3.76 M/mm3 (4.60-6.20); Red Cell Distribution Width 14.3 % (11.5-17.5); White Blood Count 9.9 K/mm3 (4.8-10.8)
[2023-11-29 14:50] LABS: C-Reactive Protein 26.1 mg/L (0-4)
[2023-11-29 14:56] LABS: NT Pro Brain Natriuretic Pep. 577 pg/mL (0-125)
--- NOTE | 2023-11-29 15:16 | XR_ITS ---
FINAL REPORT CLINICAL HISTORY: Hypotension, immunosuppressed COMPARISON: 05/13/2021 FINDINGS: The heart is mildly enlarged. The mediastinum is normal. The lungs are underinflated. There is no focal infiltrate or edema. There are no pleural effusions. There is no pneumothorax. There is no osseous abnormality. IMPRESSION: No acute cardiopulmonary process Reviewed, Interpreted and Dictated by Jose Morillo MD Transcribed by Nikia Benitez Authenticated and [facility]
--- NOTE | 2023-11-29 15:27 | PC.NURSE ---
XR AT BEDSIDE
[2023-11-29] MEDS: METRONIDAZ/SOD CHL 500 MG/100 ML PIGGYBACK 100 MG IV (15:46)
--- NOTE | 2023-11-29 15:47 | PC.NURSE ---
FAMILY UPDATED BY MIRTHA
--- NOTE | 2023-11-29 15:54 | PC.NURSE ---
called house for house for a bed assignment
[2023-11-29 15:58] LABS: Microscopic, Urine URINE MICROSCOPIC (MICROSCOPIC)
[2023-11-29 15:59] LABS: Appearance,Urine CLEAR (Clear); Bilirubin,Urine Negative (Negative); Blood, Urine Negative (Negative); Color,Urine YELLOW (Yellow); Glucose,Urine (UA) Negative (Negative); Ketones,Urine Negative (Negative); Leukocyte Esterase,Urine Negative (Negative); Nitrate,Urine Negative (Negative); Protein,Urine Negative (Negative); Specific Gravity, Urine 1.015 (1.005-1.030)
[2023-11-29 16:05] LABS: Bacteria,Urine Trace /lpf; Hyaline Casts,Urine OCC #/lpf (0); Squamous Epithelial Cell,Urine Occasional #/hpf (0-5); WBC,Urine Occasional #/hpf (0-3)
[2023-11-29 16:25] VITALS: BP 104/69; PULSE 74; RESP 18; TEMP 36.6; O2SAT 99
--- NOTE | 2023-11-29 16:45 | PC.NURSE ---
arrived by w/c from ED
[2023-11-29 17:00] VITALS: BP 107/60; PULSE 81; RESP 18; TEMP 36.8; O2SAT 98; BMI 32.9
[2023-11-29] MEDS: CEFEPIME HCL 2 GM in 0.9 % SODIUM CHLORIDE 100 ML IV ×2 (17:51→22:20)
[2023-11-29] MEDS: VANCOMYCIN/WATER FOR INJ (PEG) 1.5 GM/300 ML PIGGYBACK IV (18:33)
[2023-11-29 18:38] LABS: Reflex Lactic Add Lactic Reflex
--- NOTE | 2023-11-29 18:40 | CT_ITS ---
PROCEDURE INFORMATION: Exam: CT Abdomen And Pelvis Without Contrast Exam date and time: 11/29/2023 7:09 PM Age: 68 years old Clinical indication: Abdominal pain; Additional info: Lower abdominal pain, no bowel movement for 2 week TECHNIQUE: Imaging protocol: Computed tomography of the abdomen and pelvis without contrast. Radiation optimization: All CT scans at this facility use at least one of these dose optimization techniques: automated exposure control; mA and/or kV adjustment per patient size (includes targeted exams where dose is matched to clinical indication); or iterative reconstruction. COMPARISON: CT ABDOMEN PELVIS WO CON 05/13/2021 3:21 AM FINDINGS: Heart: No cardiomegaly. Moderate mitral annulus calcification. Moderate aortic valve calcification. Liver: Mildly lobulated liver contour. No focal liver lesions. Gallbladder and biliary ducts: Status post cholecystectomy. No significant biliary ductal dilitation. Pancreas: Normal. No ductal dilation. Spleen: Calcified granuloma in the spleen. No splenomegaly. Adrenal glands: Normal. No mass. Kidneys and ureters: Normal. No hydronephrosis. Stomach and bowel: Mild distal colonic diverticulosis. Moderate fecal material throughout the colon. No dilated bowel loops. Appendix: No evidence of appendicitis. Intraperitoneal space: Unremarkable. No free air. No significant fluid collection. Vasculature: Moderate atherosclerotic disease without aneurysm. Lymph nodes: Unremarkable. No enlarged lymph nodes. Urinary bladder: Unremarkable as visualized. Reproductive: Unremarkable as visualized. Bones/joints: Moderate lumbar spine degenerative change. Soft tissues: Bilateral gynecomastia. IMPRESSION: 1. Moderate fecal material throughout the colon. Moderate rectal distension due to fecal material. No bowel obstruction. 2. No inflammatory changes or free fluid.
--- NOTE | 2023-11-29 18:41 | EXP.HP ---
History of Present Illness *Admission Date: 11/29/23 *Reason for visit:: Hypotension, cellulitis, cancer patient *History of present illness: Mr. 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 Patient and state the patient has been feeling more weak over the last week, but no fevers, chest pain, shortness of breath, urinary symptoms. Patient also states that he has not had a bowel movement in the past 2 weeks. Denies nausea/vomiting. Patient also states he has chronic bilateral lower extremity swelling but they have been more swollen recently, with redness in the right rodríguez worsening over the past few days. Workup in the ED significant for WBC 9.9, creatinine 1.7 (baseline 0.90), BNP 77, CRP 26.1. Normal UA. CXR unremarkable. Case was discussed with ED provider and decision was made to admit patient for hypertension, cellulitis, ROBERT. [facility] Disclaimer: The information contained in this section may have been updated after the patient was seen, as this information can be updated by other users. Medical History Cancer HLD (hyperlipidemia) HTN (hypertension) Surgical History H/O hernia repair Social History Smoking Status: Never smoker alcohol intake: current alcohol intake frequency: a few times a week substance use type: denies use current occupational status: disabled Travel in the last 8 weeks: None household members: spouse housing: apartment current occupational exposures/hazards: No caffeine: No Other Medical History Have you received the Flu Vaccine for this season: No Have you received the Pneumonia Vaccine: No Meds Home Medications and Allergies Home Medications ?Medication ?Instructions ?Recorded ?Confirmed ?Type furosemide 40 mg tablet (Lasix) 40 mg PO DAILY PRN edema #90 tabs 05/19/22 11/29/23 Rx spironolactone 50 mg tablet 50 mg PO DAILY fluid retention #90 05/19/22 11/29/23 Rx tabs atorvastatin 10 mg tablet See Rx Instructions .Route 10/05/22 11/29/23 Rx .COMPLEX #90 ea levothyroxine 25 mcg tablet See Rx Instructions .Route 12/28/22 11/29/23 Rx .COMPLEX #90 tabs metoprolol succinate 25 mg See Rx Instructions .Route 10/09/23 11/29/23 Rx tablet,extended release 24 hr .COMPLEX #90 tabs apixaban 5 mg tablet (Eliquis) 5 mg PO DAILY 11/08/23 11/29/23 History clindamycin phosphate 1 % topical See Rx Instructions .Route .COMPLEX 11/08/23 11/29/23 History gel folic acid 1 mg tablet 1 mg PO BID 11/08/23 11/29/23 History hydrocortisone 2.5 % lotion See Rx Instructions .Route .COMPLEX 11/08/23 11/29/23 History linezolid 600 mg tablet 600 mg PO DAILY 11/08/23 11/29/23 History metronidazole 500 mg tablet 500 mg PO DAILY 11/08/23 11/29/23 History oxycodone 10 mg tablet 10 mg PO DAILY 11/08/23 11/29/23 History prochlorperazine maleate 10 mg 10 mg PO NEEDED PRN Nausea And 11/08/23 11/29/23 History tablet Vomiting melatonin 5 mg tablet 5 mg PO HS PRN sleep #30 tabs 11/09/23 11/29/23 Rx thiamine mononitrate (vit B1) 50 25 mg PO DAILY 11/29/23 11/29/23 History mg tablet trazodone 50 mg tablet 50 mg PO DAILY 11/29/23 11/29/23 History New Prescriptions to Start Prescriptions: Allergies Allergy/AdvReac Type Severity Reaction Status Date / Time No Known Allergies Allergy Verified 11/08/23 13:55 Exam Data for Last 24 hours Vital signs and Labs for Last 24 Hours: Temp Pulse Resp BP Pulse Ox O2 Del Method 97.9 F 74 18 104/69 L 98 Room Air 11/29/23 16:25 11/29/23 16:25 11/29/23 16:25 11/29/23 16:25 11/29/23 14:20 11/29/23 18:00 Laboratory Results - last 24 hr 11/29/23 14:18: WBC 9.9, RBC 3.76 L, Hgb 11.9 L, Hct 37.3 L, MCV 99.1 H, MCH 31.6 H, MCHC 31.9, RDW 14.3, Plt Count 288, MPV 8.4, Neut % (Auto) 53.0, Lymph % (Auto) 36.6, [place] % (Auto) 8.1, Eos % (Auto) 1.8, Baso % (Auto) 0.5, Neut # (Auto) 5.2, Lymph # (Auto) 3.6, [place] # (Auto) 0.8, Eos # (Auto) 0.2, Baso # (Auto) 0.1, PT 10.9, INR 0.97, Sodium 133 L, Potassium 4.5, Chloride 99, Carbon Dioxide 29, Anion Gap 9.5, BUN 27 H, Creatinine 1.70 H, Estimated Creat Clear 49, Estimated GFR 40 L, Est GFR ( Amer) 49 L, Glucose 115 H, Calcium 9.4, Magnesium 2.1, Total Bilirubin 0.7, AST 35, ALT 28, Alkaline Phosphatase 83, C-Reactive Protein 26.1 H, NT-Pro-B Natriuret Pep 577 H, Total Protein 7.5, Albumin 3.8, Globulin 3.7 H, Albumin/Globulin Ratio 1.0 L, Procalcitonin 0.100 11/29/23 14:29: VBG pH 7.30 L, VBG pCO2 57.8 H, VBG pO2 32.7, VBG HCO3 27.6, VBG Total CO2 29.4 H, VBG O2 Saturation 57.5, VBG Base Excess 1.1, VBG Lactic Acid 2.8 H 11/29/23 15:54: Urine Color Yellow, Urine Appearance Clear, Urine pH 6.0, Ur Specific [place] 1.015, Urine Protein Negative, Urine Glucose (UA) Negative, Urine Ketones Negative, Urine Blood Negative, Urine Nitrate Negative, Urine Bilirubin Negative, Urine Urobilinogen 1.0, Ur Leukocyte Esterase Negative, Urine RBC None, Urine WBC Occasional, Ur Squamous Epith Cells Occasional, Urine Bacteria Trace, Hyaline Casts Occ I & O for Last 24 hours: Intake & Output 11/26/23 11/27/23 11/28/23 11/29/23 23:59 23:59 23:59 23:59 Weight 81.647 kg Constitutional Constitutional: no acute distress *Routine HEENT Exam Head: Present normocephalic Eye: Present EOMI and PERRL ENT: Present mucous membranes moist *Routine Neck Exam Neck: Present supple; Absent lymphadenopathy *Routine Respiratory Exam Respiratory: Present CTA bilaterally *Routine Cardiovascular Exam Cardiovascular: Present RRR *Routine Abdominal Exam Abdominal: Present soft, normoactive bowel sounds and tenderness Comments: Tenderness to palpation over the lower quadrants. No peritoneal signs. *Routine Rectal Exam Rectal:: deferred *Routine Genitalia Exam Genitalia:: deferred *Routine Extremities Exam Extremities: Absent cyanosis, clubbing or edema *Routine Skin Exam Skin: Present warm; Absent rash Comments: Squamous cell carcinoma over the left face. Bilateral lower extremity pitting edema 2+. Erythematous, tenderness over the right rodríguez. *Routine Neurological Exam Neurological: Present alert and oriented X3 Assessment and Plan *Assessment and plan (1) Cellulitis: Status: Acute Category: Medical Code(s): L03.90 - Cellulitis, unspecified Plan Mr. 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 Patient and state the patient has been feeling more weak over the last week, but no fevers, chest pain, shortness of breath, urinary symptoms. Patient also states that he has not had a bowel movement in the past 2 weeks. Denies nausea/vomiting. Patient also states he has chronic bilateral lower extremity swelling but they have been more swollen recently, with redness in the right rodríguez worsening over the past few days. Workup in the ED significant for WBC 9.9, creatinine 1.7 (baseline 0.90), BNP 77, CRP 26.1. Normal UA. CXR unremarkable. Case was discussed with ED provider and decision was made to admit patient for hypertension, cellulitis. #Hypotension, resolved #Cellulitis versus venous stasis dermatitis #Bilateral lower extremity edema ? Worsening lower extremity swelling, right rodríguez erythema with blisters over the past few days. ? Home health nurse found patient to be hypotensive at home, improved with fluids in the ED. ? No leukocytosis, fevers, tachycardia at this time. Currently hemodynamically stable. ? CXR, UA unremarkable. ? IV vancomycin, cefepime day 1. ? Follow-up blood cultures. ? Follow-up left lower extremity venous ultrasound to rule out DVT #ROBERT ? Likely prerenal in the setting of hypotension. ? Will encourage p.o. rehydration. Hold off IV fluids pending heart failure workup. #Bilateral lower extremity edema ? Elevated BNP 577 on admission. No pulmonary edema on CXR. ? Lower extremity edema is chronic, and probably chronic venous stasis especially with superimposed chronic venous skin changes. ? However, cannot rule out heart failure. Follow-up ECHO. ? Hold off on diuretics given recent hypotension. #History of DVT ? Resume home Eliquis. #Hypothyroidism ? Resume home levothyroxine once reconciled. CODE STATUS: Full code DVT prophylaxis: Eliquis
--- NOTE | 2023-11-29 19:23 | PC.NURSE ---
pt arrived from the er at 1645. a&o x4. lung sounds are clear on auscultation. BLE with redness and raised pustules. abdomen distended, large and round- pt expressed that he has not had a bm for about 2 weeks. pt also has scattered scabbing from scratching. this is due to nerves according to pt. left side of face is covered with dressing. large area on left side of face where squamous cell cancer is present- black, raised, cracked areas with some bleeding. pt does not express any pain. vanc running at 125. pt has no complaints at this time. is at bedside. call light within reach. bed in low and locked position and bed alarm on for pt safety.
[2023-11-29 19:26] LABS: Erythrocyte Sedimentation Rate 76 mm/hr (0-20)
[2023-11-29] MEDS: VANCOMYCIN CONSULT REQUEST 1 EACH NOTAPPLIC (19:37)
[2023-11-29 20:00] VITALS: BP 101/63; PULSE 84; RESP 16; TEMP 37.1; O2SAT 95
[2023-11-29 20:21] LABS: Lactic Acid Follow Up (RFLX 1) 1.7 mmol/L (0.7-2.1)
[2023-11-30] VITALS: BP 116/65; PULSE 89; RESP 18; TEMP 37.1; O2SAT 97
[2023-11-30] MEDS: CEFEPIME HCL 2 GM in 0.9 % SODIUM CHLORIDE 100 ML IV ×3 (03:06→18:09)
[2023-11-30 04:00] VITALS: BP 113/66; PULSE 84; RESP 16; TEMP 37; O2SAT 99; BMI 30.2
--- NOTE | 2023-11-30 04:48 | PC.NURSE ---
Addendum entered by Sara Nguyen RN 11/30/23 05:04: Patient returned earlier this shift from a CT scan of his abdomen/pelvis taken during the previous shift. CT of abdomen did not detect a bowel obstruction (see report for details). Original Note: Patient is alert and oriented x4. Patient was observed to have eyes closed, respirations even and unlabored on room air, and no apparent distress throughout the majority of the night. Patient's has remained at bedside this shift. Patient has complained of feeling slightly weak with mild soreness in his shins. Both of the patient's anterior shins were red and blistered. He has heavy pitting edema in his lower extremities bilaterally. Patient tends to complain of more discomfort in his left leg than the right. Patient has black, deadened and malignant tissue on the left side of his face below his eye; it is covered lightly with an ABD pad. Patient has scattered scabs across his thorax. Patient's abdomen is also rounded, soft, and distended; he has not complained of any abdominal pain this shift. His bowel sounds were active upon auscultation; however, he stated he has not been able to have a bowel movement for 2 weeks. Patient's left lung had decreased air movement compared to the right lung during assessment. Vital signs have been stable this shift with blood pressures on the softer side. He has not complained of any dizziness or increasing weakness thus far this shift. Patient has received ongoing IV antibiotic therapy this shift per MAR. Patient refuses to ambulate; he has stood up at the side of the bed to steady himself with his walker and standby assistance by staff to use his urinal this shift. Urine was noted to be clear and yellow but foul-smelling. Patient has a follow-up echo and a venous ultrasound for his left leg ordered. Blood cultures are still pending. Patient does not have any further complaints. He is currently sitting up in bed. No acute changes noted. Call light within reach.
[2023-11-30 06:56] LABS: Chloride 101 mmol/L (98-107); Potassium 4.3 mmoL/L (3.5-5.1); Sodium 132 mmol/L (136-145)
[2023-11-30 06:59] LABS: Anion Gap 9.3 mEq/L (5-15); Blood Urea Nitrogen 17 mg/dl (9-20); Carbon Dioxide 26 mmol/L (22.0-30.0); Creatinine Clearance Estimated 83 mL/min (50-200); Estimated Glomerular Filt Rate 84 ml/min (>60); GFR (African American) 102 ML/MIN (>60); Glucose 103 mg/dl (74-100)
[2023-11-30 07:00] LABS: Calcium 9.3 mg/dl (8.4-10.2)
[2023-11-30 07:08] LABS: Eosinophils # 0.2 K/mm3 (0.0-0.4); Eosinophils % 2.6 % (0.1-12.0); Hematocrit 28.6 % (42.0-52.0); Hemoglobin 11.3 g/dL (14.1-18.0); Lymphocytes # 2.9 K/mm3 (0.7-4.5); Lymphocytes % 31.6 % (10-50); Mean Corpuscular HGB Conc 39.4 g/dL (31.8-35.4); Mean Corpuscular Hemoglobin 36.3 pg (27.0-31.2); Mean Corpuscular Volume 92.2 fl (80-94); Mean Platelet Volume 8.5 fl (7.4-10.4); Monocytes # 0.7 K/mm3 (0.1-1.0); Monocytes % 7.8 % (1.7-9.3); Neutrophils # 5.3 K/mm3 (1.8-7.8); Neutrophils % 58.1 % (37.0-80.0); Platelet Count 274 K/mm3 (142-424); Red Cell Distribution Width 16.7 % (11.5-17.5); White Blood Count 9.2 K/mm3 (4.8-10.8)
--- NOTE | 2023-11-30 07:25 | P.CONPHA_ITS ---
Pharmacy Consult Date: 11/30/23 Time: 07:26 Referring provider: DR. FLYNN Reason for Consult:: VANCOMYCIN DOSING Allergies Allergy/AdvReac Type Severity Reaction Status Date / Time No Known Allergies Allergy Verified 11/08/23 13:55 Home Medications ?Medication ?Instructions ?Recorded ?Confirmed ?Type furosemide 40 mg tablet (Lasix) 40 mg PO DAILY PRN edema #90 tabs 05/19/22 11/29/23 Rx spironolactone 50 mg tablet 50 mg PO DAILY fluid retention #90 05/19/22 11/29/23 Rx tabs atorvastatin 10 mg tablet See Rx Instructions .Route 10/05/22 11/29/23 Rx .COMPLEX #90 ea levothyroxine 25 mcg tablet See Rx Instructions .Route 12/28/22 11/29/23 Rx .COMPLEX #90 tabs metoprolol succinate 25 mg See Rx Instructions .Route 10/09/23 11/29/23 Rx tablet,extended release 24 hr .COMPLEX #90 tabs apixaban 5 mg tablet (Eliquis) 5 mg PO DAILY 11/08/23 11/29/23 History clindamycin phosphate 1 % topical See Rx Instructions .Route .COMPLEX 11/08/23 11/29/23 History gel folic acid 1 mg tablet 1 mg PO BID 11/08/23 11/29/23 History hydrocortisone 2.5 % lotion See Rx Instructions .Route .COMPLEX 11/08/23 11/29/23 History linezolid 600 mg tablet 600 mg PO DAILY 11/08/23 11/29/23 History metronidazole 500 mg tablet 500 mg PO DAILY 11/08/23 11/29/23 History oxycodone 10 mg tablet 10 mg PO DAILY 11/08/23 11/29/23 History prochlorperazine maleate 10 mg 10 mg PO NEEDED PRN Nausea And 11/08/23 11/29/23 History tablet Vomiting melatonin 5 mg tablet 5 mg PO HS PRN sleep #30 tabs 11/09/23 11/29/23 Rx thiamine mononitrate (vit B1) 50 25 mg PO DAILY 11/29/23 11/29/23 History mg tablet trazodone 50 mg tablet 50 mg PO DAILY 11/29/23 11/29/23 History New Prescriptions to Start Prescriptions: Height: 1.65 m Weight: 82.146 kg Laboratory Results:: Laboratory Results - last 24 hr 11/29/23 14:18: WBC 9.9, RBC 3.76 L, Hgb 11.9 L, Hct 37.3 L, MCV 99.1 H, MCH 31.6 H, MCHC 31.9, RDW 14.3, Plt Count 288, MPV 8.4, Neut % (Auto) 53.0, Lymph % (Auto) 36.6, [place] % (Auto) 8.1, Eos % (Auto) 1.8, Baso % (Auto) 0.5, Neut # (Auto) 5.2, Lymph # (Auto) 3.6, [place] # (Auto) 0.8, Eos # (Auto) 0.2, Baso # (Auto) 0.1, ESR 76 H, PT 10.9, INR 0.97, Sodium 133 L, Potassium 4.5, Chloride 99, Carbon Dioxide 29, Anion Gap 9.5, BUN 27 H, Creatinine 1.70 H, Estimated Creat Clear 49, Estimated GFR 40 L, Est GFR ( Amer) 49 L, Glucose 115 H, Calcium 9.4, Magnesium 2.1, Total Bilirubin 0.7, AST 35, ALT 28, Alkaline Phosphatase 83, C-Reactive Protein 26.1 H, NT-Pro-B Natriuret Pep 577 H, Total Protein 7.5, Albumin 3.8, Globulin 3.7 H, Albumin/Globulin Ratio 1.0 L, Procalcitonin 0.100 11/29/23 14:29: VBG pH 7.30 L, VBG pCO2 57.8 H, VBG pO2 32.7, VBG HCO3 27.6, VBG Total CO2 29.4 H, VBG O2 Saturation 57.5, VBG Base Excess 1.1, VBG Lactic Acid 2.8 H 11/29/23 15:54: Urine Color Yellow, Urine Appearance Clear, Urine pH 6.0, Ur Specific [place] 1.015, Urine Protein Negative, Urine Glucose (UA) Negative, Urine Ketones Negative, Urine Blood Negative, Urine Nitrate Negative, Urine Bilirubin Negative, Urine Urobilinogen 1.0, Ur Leukocyte Esterase Negative, Urine RBC None, Urine WBC Occasional, Ur Squamous Epith Cells Occasional, Urine Bacteria Trace, Hyaline Casts Occ 11/29/23 18:38: Lactate 1.7 11/30/23 06:27: WBC 9.2, RBC 3.10 L, Hgb 11.3 L, Hct 28.6 L, MCV 92.2, MCH 36.3 H, MCHC 39.4 H, RDW 16.7, Plt Count 274, MPV 8.5, Neut % (Auto) 58.1, Lymph % (Auto) 31.6, [place] % (Auto) 7.8, Eos % (Auto) 2.6, Baso % (Auto) 11.0 H, Neut # (Auto) 5.3, Lymph # (Auto) 2.9, [place] # (Auto) 0.7, Eos # (Auto) 0.2, Baso # (Auto) 1.0 H, Sodium 132 L, Potassium 4.3, Chloride 101, Carbon Dioxide 26, Anion Gap 9.3, BUN 17 D, Creatinine 0.90 D, Estimated Creat Clear 83, Estimated GFR 84, Est GFR ( Amer) 102 D, Glucose 103 H, Calcium 9.3 Medical History: Medical History (Updated 11/29/23 @ 16:12 by LISA Maria) Cancer HLD (hyperlipidemia) HTN (hypertension) Assessment and Plan Assessment and plan all Dx Assessment and Plan for all problems:: Pharmacokinetic dosing service Objective: Patient: Floor: Age: 68 yo Serum creatinine: 0.90 mg/dL Height: 65.0 Inches Weight (kg): 82.1 Assessment: IBW (kg): 61.50 Dosing wt(kg): 82.1 Estimated Creatinine clearance (ml/min): 69.3 CRCL method: Cockcroft and Gault using ibw(default). Drug selected: Vancomycin Loading dose (mg): Vd (liters): 65.7 (factor used: 0.8 L/kg) [place] (hr-1): 0.062 Half life (hrs): 11.18 CLvanco=?? 4.073 L/hr Recommended dose: 1750 mg Interval: 18 hrs Infusion time (hrs): 2.0 Predicted peak (mcg/mL): 37.3 Predicted trough (mcg/mL): 13.83 Total body weight is being used for vancomycin dosing. Recommendations: Give Vancomycin 1750 mg q 18 hrs with an expected Cpeak of 37.3 mcg/ml and an expected Ctrough of 13.83 mcg/ml AUC 0-24 /ANDREW Data: ANDREW 0.5 mcg/mL:?? AUC/ANDREW:? 1145.8 ANDREW 1.0 mcg/mL:?? AUC/ANDREW:? 572.9 --------- ANDREW 1.5 mcg/mL:?? AUC/ANDREW:? 381.9 ANDREW 2.0 mcg/mL:?? AUC/ANDREW:? 286.4 Thank you for the consult, will continue to follow. -LYUBOV KIMBALL, PENNYD
--- NOTE | 2023-11-30 07:28 | HMH.PHAINT1 ---
Pharmacy Intervention Comments: Home medication list verified using list from pharmacy and patient interview.
[2023-11-30 08:00] VITALS: BP 122/75; PULSE 86; RESP 16; TEMP 36.6; O2SAT 98
[2023-11-30] MEDS: BISACODYL 10MG SUPP 10 MG RC (10:31)
[2023-11-30] MEDS: POLYETHYLENE GLYCOL 3350 17 GM PACKET PO (10:31)
[2023-11-30] MEDS: APIXABAN 5MG TABLET 5 MG PO ×2 (10:31→20:01)
[2023-11-30] MEDS: VANCOMYCIN/WATER FOR INJ (PEG) 1.75 GM/350 ML PIGGYBACK IV (11:56)
[2023-11-30 12:00] VITALS: BP 120/70; PULSE 80; RESP 17; TEMP 36.6; O2SAT 96
--- NOTE | 2023-11-30 14:02 | P.PN_ITS ---
Subjective *Date: 11/30/23 *Time: 14:03 Interval history: Patient was a sitting in bed comfortably this morning without acute distress. Denies chest pain, shortness of breath. States he feels a little bit better than yesterday. Exam Data for Last 24 hours Vital signs and Labs for Last 24 Hours: Temp Pulse Resp BP Pulse Ox O2 Del Method 98 F 80 17 120/70 96 Room Air 11/30/23 12:00 11/30/23 12:00 11/30/23 12:00 11/30/23 12:00 11/30/23 12:00 11/30/23 11:00 Laboratory Results - last 24 hr 11/29/23 14:18: WBC 9.9, RBC 3.76 L, Hgb 11.9 L, Hct 37.3 L, MCV 99.1 H, MCH 31.6 H, MCHC 31.9, RDW 14.3, Plt Count 288, MPV 8.4, Neut % (Auto) 53.0, Lymph % (Auto) 36.6, [place] % (Auto) 8.1, Eos % (Auto) 1.8, Baso % (Auto) 0.5, Neut # (Auto) 5.2, Lymph # (Auto) 3.6, [place] # (Auto) 0.8, Eos # (Auto) 0.2, Baso # (Auto) 0.1, ESR 76 H, PT 10.9, INR 0.97, Sodium 133 L, Potassium 4.5, Chloride 99, Carbon Dioxide 29, Anion Gap 9.5, BUN 27 H, Creatinine 1.70 H, Estimated Creat Clear 49, Estimated GFR 40 L, Est GFR ( Amer) 49 L, Glucose 115 H, Calcium 9.4, Magnesium 2.1, Total Bilirubin 0.7, AST 35, ALT 28, Alkaline Phosphatase 83, C-Reactive Protein 26.1 H, NT-Pro-B Natriuret Pep 577 H, Total Protein 7.5, Albumin 3.8, Globulin 3.7 H, Albumin/Globulin Ratio 1.0 L, Procalcitonin 0.100 11/29/23 14:29: VBG pH 7.30 L, VBG pCO2 57.8 H, VBG pO2 32.7, VBG HCO3 27.6, VBG Total CO2 29.4 H, VBG O2 Saturation 57.5, VBG Base Excess 1.1, VBG Lactic Acid 2.8 H 11/29/23 15:54: Urine Color Yellow, Urine Appearance Clear, Urine pH 6.0, Ur Specific [place] 1.015, Urine Protein Negative, Urine Glucose (UA) Negative, Urine Ketones Negative, Urine Blood Negative, Urine Nitrate Negative, Urine Bilirubin Negative, Urine Urobilinogen 1.0, Ur Leukocyte Esterase Negative, Urine RBC None, Urine WBC Occasional, Ur Squamous Epith Cells Occasional, Urine Bacteria Trace, Hyaline Casts Occ 11/29/23 18:38: Lactate 1.7 11/30/23 06:27: WBC 9.2, RBC 3.10 L, Hgb 11.3 L, Hct 28.6 L, MCV 92.2, MCH 36.3 H, MCHC 39.4 H, RDW 16.7, Plt Count 274, MPV 8.5, Neut % (Auto) 58.1, Lymph % (Auto) 31.6, [place] % (Auto) 7.8, Eos % (Auto) 2.6, Baso % (Auto) 11.0 H, Neut # (Auto) 5.3, Lymph # (Auto) 2.9, [place] # (Auto) 0.7, Eos # (Auto) 0.2, Baso # (Auto) 1.0 H, Sodium 132 L, Potassium 4.3, Chloride 101, Carbon Dioxide 26, Anion Gap 9.3, BUN 17 D, Creatinine 0.90 D, Estimated Creat Clear 83, Estimated GFR 84, Est GFR ( Amer) 102 D, Glucose 103 H, Calcium 9.3 I & O for Last 24 hours: Intake & Output 11/27/23 11/28/23 11/29/23 11/30/23 23:59 23:59 23:59 23:59 Intake Total 1100 / 1100 Output Total 350 / 500 450 / 450 Balance -350 / 20 650 / 650 Weight 89.811 kg 82.146 kg Constitutional Constitutional: no acute distress *Routine HEENT Exam Head: Present normocephalic Eye: Present EOMI and PERRL ENT: Present mucous membranes moist *Routine Neck Exam Neck: Present supple; Absent lymphadenopathy *Routine Respiratory Exam Respiratory: Present CTA bilaterally *Routine Cardiovascular Exam Cardiovascular: Present RRR *Routine Abdominal Exam Abdominal: Present soft and normoactive bowel sounds; Absent tenderness *Routine Extremities Exam Extremities: Present edema; Absent cyanosis or clubbing Comments: Bilateral lower extremity pitting edema 3+ with overlying chronic skin changes versus cellulitis. Squamous cell carcinoma over the left face. *Routine Skin Exam Skin: Present warm; Absent rash *Routine Neurological Exam Neurological: Present alert and oriented X3 Assessment and Plan *Assessment and plan (1) Cellulitis: Status: Acute Category: Medical Code(s): L03.90 - Cellulitis, unspecified Plan Mr. 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 Patient and state the patient has been feeling more weak over the last week, but no fevers, chest pain, shortness of breath, urinary symptoms. Patient also states that he has not had a bowel movement in the past 2 weeks. Denies nausea/vomiting. Patient also states he has chronic bilateral lower extremity swelling but they have been more swollen recently, with redness in the right rodríguez worsening over the past few days. Workup in the ED significant for WBC 9.9, creatinine 1.7 (baseline 0.90), BNP 77, CRP 26.1. Normal UA. CXR unremarkable. Case was discussed with ED provider and decision was made to admit patient for hypertension, cellulitis. #Hypotension, resolved #Cellulitis versus venous stasis dermatitis ? Worsening lower extremity swelling, right rodríguez erythema with blisters over the past few days. ? Home health nurse found patient to be hypotensive at home, improved with fluids in the ED. ? No leukocytosis, fevers, tachycardia at this time. Currently hemodynamically stable. ? CXR, UA unremarkable. ? Erythema seems to be a little bit more worse today. See below for workup of worsening venous insufficiency. ? IV vancomycin, cefepime day 2. Can likely be discontinued tomorrow if diagnosis more likely be venous stasis dermatitis. ? Follow-up blood cultures. #Bilateral lower extremity edema #Suspected worsening venous insufficiency ? Elevated BNP 577 on admission. No pulmonary edema on CXR. ? Lower extremity edema has been chronic but worse over the past week. ? Edema is slightly worsened today. Edema seems to be unlikely due to heart failure as creatinine significantly improved from IV fluids yesterday. ? Edema seems to be more related to worsening venous insufficiency. ? Cardiology consulted to evaluate for possible worsening venous insufficiency. ?Compression stockings and leg elevation ordered. ? Follow-up ECHO. ? Follow-up TSH, lipid panel, A1c tomorrow morning #ROBERT ? Improved to baseline with fluid hydration today. #History of DVT right lower extremity ? Resume home Eliquis. ? Venous Doppler negative for left lower extremity DVT . #Hypothyroidism ? Resume home levothyroxine once reconciled. CODE STATUS: Full code DVT prophylaxis: Eliquis
--- NOTE | 2023-11-30 14:14 | P.CONCA_ITS ---
History of Present Illness History of Present Illness Consult date: 11/30/23 Requesting physician: Naman Messer Consult reason: hypotension Chief complaint: hypotension History of present illness: 68-year-old white male established patient of our practice with a history of chronic venous insufficiency, obesity, mild aortic stenosis, high blood pressure and recently and advanced squamous cell carcinoma on the left side of his face. He is undergoing chemotherapy every 3 weeks and has surgical excision pending. states after starting chemotherapy he developed DVT right lower extremity and also small PE and has been started on Eliquis. She also states since that time he has had increasing swelling in his lower extremities and declining blood pressure. Yesterday blood pressure was 70s systolic so he came to the emergency room. On workup he was found to have ROBERT with creatinine 1.7 and severe constipation. He was hydrated overnight and has had a bowel movement and improvement in his creatinine back to baseline. proBNP was elevated greater than 500 we are consulted to evaluate whether this was heart failure. Patient denies orthopnea and his chest x-ray is clear. 2D echo is pending. [facility] Disclaimer: The information contained in this section may have been updated after the patient was seen, as this information can be updated by other users. Medical History Cancer HLD (hyperlipidemia) HTN (hypertension) Surgical History H/O hernia repair Social History Smoking Status: Never smoker alcohol intake: current alcohol intake frequency: a few times a week substance use type: denies use current occupational status: disabled Travel in the last 8 weeks: None household members: spouse housing: apartment current occupational exposures/hazards: No caffeine: No Exam Data for Last 24 hours Vital signs and Labs for Last 24 Hours: Temp Pulse Resp BP Pulse Ox O2 Del Method 98 F 80 17 120/70 96 Room Air 11/30/23 12:00 11/30/23 12:00 11/30/23 12:00 11/30/23 12:00 11/30/23 12:00 11/30/23 11:00 Laboratory Results - last 24 hr 11/29/23 14:18: WBC 9.9, RBC 3.76 L, Hgb 11.9 L, Hct 37.3 L, MCV 99.1 H, MCH 31.6 H, MCHC 31.9, RDW 14.3, Plt Count 288, MPV 8.4, Neut % (Auto) 53.0, Lymph % (Auto) 36.6, [place] % (Auto) 8.1, Eos % (Auto) 1.8, Baso % (Auto) 0.5, Neut # (Auto) 5.2, Lymph # (Auto) 3.6, [place] # (Auto) 0.8, Eos # (Auto) 0.2, Baso # (Auto) 0.1, ESR 76 H, PT 10.9, INR 0.97, Sodium 133 L, Potassium 4.5, Chloride 99, Carbon Dioxide 29, Anion Gap 9.5, BUN 27 H, Creatinine 1.70 H, Estimated Creat Clear 49, Estimated GFR 40 L, Est GFR ( Amer) 49 L, Glucose 115 H, Calcium 9.4, Magnesium 2.1, Total Bilirubin 0.7, AST 35, ALT 28, Alkaline Phosphatase 83, C-Reactive Protein 26.1 H, NT-Pro-B Natriuret Pep 577 H, Total Protein 7.5, Albumin 3.8, Globulin 3.7 H, Albumin/Globulin Ratio 1.0 L, Procalcitonin 0.100 11/29/23 14:29: VBG pH 7.30 L, VBG pCO2 57.8 H, VBG pO2 32.7, VBG HCO3 27.6, VBG Total CO2 29.4 H, VBG O2 Saturation 57.5, VBG Base Excess 1.1, VBG Lactic Acid 2.8 H 11/29/23 15:54: Urine Color Yellow, Urine Appearance Clear, Urine pH 6.0, Ur Specific [place] 1.015, Urine Protein Negative, Urine Glucose (UA) Negative, Urine Ketones Negative, Urine Blood Negative, Urine Nitrate Negative, Urine Bilirubin Negative, Urine Urobilinogen 1.0, Ur Leukocyte Esterase Negative, Urine RBC None, Urine WBC Occasional, Ur Squamous Epith Cells Occasional, Urine Bacteria Trace, Hyaline Casts Occ 11/29/23 18:38: Lactate 1.7 11/30/23 06:27: WBC 9.2, RBC 3.10 L, Hgb 11.3 L, Hct 28.6 L, MCV 92.2, MCH 36.3 H, MCHC 39.4 H, RDW 16.7, Plt Count 274, MPV 8.5, Neut % (Auto) 58.1, Lymph % (Auto) 31.6, [place] % (Auto) 7.8, Eos % (Auto) 2.6, Baso % (Auto) 11.0 H, Neut # (Auto) 5.3, Lymph # (Auto) 2.9, [place] # (Auto) 0.7, Eos # (Auto) 0.2, Baso # (Auto) 1.0 H, Sodium 132 L, Potassium 4.3, Chloride 101, Carbon Dioxide 26, Anion Gap 9.3, BUN 17 D, Creatinine 0.90 D, Estimated Creat Clear 83, Estimated GFR 84, Est GFR ( Amer) 102 D, Glucose 103 H, Calcium 9.3 I & O for Last 24 hours: Intake & Output 11/27/23 11/28/23 11/29/23 11/30/23 23:59 23:59 23:59 23:59 Intake Total 1100 / 1100 Output Total 350 / 500 450 / 450 Balance -350 / 20 650 / 650 Weight 198 lb 181 lb 1.6 oz Constitutional Constitutional: no acute distress and cooperative *Routine HEENT Exam Eye: Present PERRL Comments: large 4-5cm deep wound noted to left maxillar region - bandage in place *Routine Respiratory Exam Respiratory: Present CTA bilaterally; Absent accessory muscle use, wheezes or crackles *Routine Cardiovascular Exam Cardiovascular: Present RRR, Normal S1 and Normal S2; Absent murmur, gallop or rubs *Routine Abdominal Exam Abdominal: Present soft; Absent tenderness *Routine Extremities Exam Extremities: Present pulses intact; Absent cyanosis or edema *Routine Skin Exam Skin: Present intact; Absent erythema or wounds Comments: BLE Edema/erythema, large skin cancer wound left maxillary region *Routine Neurological Exam Neurological: Present alert and oriented X3 Routine Psychiatric Exam Psychiatric: Present cooperative Meds Home Medications and Allergies Home Medications ?Medication ?Instructions ?Recorded ?Confirmed ?Type furosemide 40 mg tablet (Lasix) 40 mg PO DAILY PRN edema #90 tabs 05/19/22 11/29/23 Rx spironolactone 50 mg tablet 50 mg PO DAILY fluid retention #90 05/19/22 11/29/23 Rx tabs apixaban 5 mg tablet (Eliquis) 5 mg PO BID 11/08/23 11/30/23 History folic acid 1 mg tablet 1 mg PO DAILY 11/08/23 11/30/23 History metronidazole 500 mg tablet 500 mg PO DAILY 11/08/23 11/29/23 History melatonin 5 mg tablet 5 mg PO HS PRN sleep #30 tabs 11/09/23 11/29/23 Rx thiamine mononitrate (vit B1) 50 25 mg PO DAILY 11/29/23 11/29/23 History mg tablet trazodone 50 mg tablet 50 mg PO DAILY 11/29/23 11/29/23 History atorvastatin 10 mg tablet 10 mg PO DAILY 11/30/23 11/30/23 History levothyroxine 25 mcg tablet 25 mcg PO DAILY 11/30/23 11/30/23 History metoprolol succinate 25 mg 25 mg PO DAILY 11/30/23 11/30/23 History tablet,extended release 24 hr New Prescriptions to Start Prescriptions: Allergies Allergy/AdvReac Type Severity Reaction Status Date / Time No Known Allergies Allergy Verified 11/08/23 13:55 Assessment and Plan *Assessment and plan (1) Chronic venous insufficiency: Status: Acute Category: Medical Code(s): I87.2 - Venous insufficiency (chronic) (peripheral) (2) Hypotension: Status: Acute Category: Medical Code(s): I95.9 - Hypotension, unspecified (3) Aortic stenosis: Status: Acute Qualifiers: Cardiac valve disease etiology: nonrheumatic Qualified Code(s): I35.0 - Nonrheumatic aortic (valve) stenosis Category: Medical Code(s): I35.0 - Nonrheumatic aortic (valve) stenosis (4) Squamous cell carcinoma, face: Status: Acute Category: Medical Code(s): C44.320 - Squamous cell carcinoma of skin of unspecified parts of face Plan Hypotension - appears dehydrated with Cr 1.7, constipation and hypotension - improving - reduce home dose aldactone to 25mg daily, reduce lasix Chronic Venous Insufficiency, CEAP 4 - will order PT/Alyssa Boots Provoked VTE - RLE DVT and small PE following initiation of chemo for squamous cell carcinoma of face 2023 - cont Eliquis Aortic Stenosis - 4/6 murmur on exam with ORTIZ, LE Edema and elevated BNP - repeat 2D ECHO here shows no change Squamous Cell Carcinoma of face - pt on chemo q3 weeks - left face bandaged, large open deep wound ECHO: Conclusion Normal biventricular systolic function. Mild to moderate ( MATT by continuity equation is 1.5 cm2. Peak velocity 2.9 m/s. Mean AV gradient 17 mmHg. Max AV gradient is 32 mmHg). Pt is CV stable for discharge home with close OP f/u in our office 1 week post discharge. Reduce home dose Aldactone to 25mg daily. Reduce Lasix to 40mg once daily. Add Alyssa boots and f/u for dressing changes outpatient or with Home Health. Please advise if we can be of further assistance this admission, thank you.
[2023-11-30 16:00] VITALS: BP 119/66; PULSE 74; RESP 17; TEMP 36.6; O2SAT 94
--- NOTE | 2023-11-30 18:34 | PC.NURSE ---
Pt alert and oriented x4. Edema/redness noted to BLE. Wound care to place ernie boots tomorrow per cardiology order, wound care saw pt today but did not come back to put ernie boots on. Pt was given suppository today because it had been two weeks prior to last bowel movement, suppository was successful. Pt has had two large bowel movements. Pt ambulates to bathroom with assist x1 and walker. The wound on pt right cheek was redressed this shift because it started bleeding, MD is aware and helped change dressing. Pt at bedside. he is resting comfortably in bed with no complaints at this time.
--- NOTE | 2023-11-30 18:52 | CA_ITS ---
FINAL REPORT TECHNIQUE: Bilateral lower extremity venous duplex was performed with augmentation and compression. CLINICAL HISTORY: bilateral leg swelling, pain redness cellulitis FINDINGS: Proper flow is seen throughout the deep venous systems bilaterally. There is no evidence of deep venous thrombosis. IMPRESSION: No evidence of deep venous thrombosis. Reviewed, Interpreted and Dictated by Jose Morillo MD Transcribed by Ramandeep Colon Authenticated and [facility]
--- NOTE | 2023-11-30 18:55 | CA_ITS ---
APPROVED REPORT EXAM: Comprehensive 2D, Doppler, and color-flow Echocardiogram Sales Promotion Coordinator: KRAIG Allen, RVS Ht: 5 ft 4 in Wt: 181lbs BSA: 1.88 BP: 104/69 mmHg Indications: CHF, HTN, Edema, Cellulitis, Squamous cell CA of left face-chemo every 3 weeks, SOB Echo Enhancing Agent Comments: TDS: limited windows.patient supine due to facial wound 2D Dimensions IVSd 1.17 cm LVEF (Visual) 68.60 % PWd 1.20 cm LA Volume 33.70 mL LVDd 5.01 cm LA Volume Index 17.60 mL/m2 (M/F) 16-34 LVDs 3.08 cm Left Atrium 4.22 cm M-Mode Dimensions LA Diam 4.12 cm (1.9-4.0) EPSs 0.42 cm TAPSE 2.12 (<1.7) LV Diastology E Decel Time 180 (160-240 msec) E/A Ratio 0.95 MED A' 10.60 cm/s LAT A' 12.40 cm/s Aortic Valve MATT Index 0.79 cm2/m2 AoV Peak Jarad. 267.0 (50-130 cm/s) AO Peak GR. 28.70 mmHg AO Mean GR. 15.40 (<5 mmHg) AO VTI 54.6 (18-25 cm) MATT (VTI) 1.51 (2.5-4.5 cm2) Mitral Valve MV A Velocity 106.0 (40-130 cm/s) E/A Ratio 0.95 MV Mean Gr. 2.00 (<2mmHg) Pulmonary Valve PV Peak Velocity 108.0 (50-150 cm/s) Tricuspid Valve TR P. Velocity 175.00 cm/s RAP Estimate 10.00 mmHg RVSP 22.30 mmHg Left Ventricle The left ventricle is normal size. The left ventricular systolic function is normal. The left ventricular ejection fraction is within the normal range. There is increased LV wall thickness. There is normal LV segmental wall motion. Transmitral Doppler flow pattern suggests impaired LV relaxation. LVEF is 55%. Right Ventricle The right ventricle is normal size. The right ventricular systolic function is normal. Atria The left atrium size is normal. The right atrium size is normal. There is no Doppler evidence of interatrial shunt. Aortic Valve The aortic valve is moderately thickened. Mild to moderate aortic stenosis. MATT by continuity equation is 1.5 cm2. Peak velocity 2.9 m/s. Mean AV gradient 17 mmHg. Max AV gradient is 32 mmHg. No aortic regurgitation is present. Mitral Valve The mitral valve leaflets are mildly thickened. No evidence of mitral valve stenosis. Trace mitral regurgitation. Tricuspid Valve Tricuspid valve is grossly normal in structure and function. Tracetricuspid regurgitation. There is insufficient TR jet to estimate RVSP. Pulmonic Valve The pulmonary valve is normal in structure. Trace pulmonic regurgitation. Great Vessels The aortic root is normal in size. The ascending aorta is not well visualized. IVC is normal in size and collapses >50% with inspiration. Pericardium There is no pericardial effusion. Other Information Study Quality: Fair Conclusion Normal biventricular systolic function. Mild to moderate ( MATT by continuity equation is 1.5 cm2. Peak velocity 2.9 m/s. Mean AV gradient 17 mmHg. Max AV gradient is 32 mmHg). Electronically signed by : Eleanor Cummins MD 11/30/2023 18:27:29
[2023-11-30 20:00] VITALS: BP 117/73; PULSE 93; RESP 18; TEMP 36.9; O2SAT 96
[2023-11-30] MEDS: TRAZODONE 50MG TABLET 50 MG PO (20:01)
[2023-11-30] MEDS: ATORVASTATIN 10MG TABLET 10 MG PO (20:01)
[2023-12-01] VITALS: BP 124/65; PULSE 96; RESP 18; TEMP 36.7; O2SAT 95
[2023-12-01 04:00] VITALS: BP 139/81; PULSE 89; RESP 16; TEMP 37.3; O2SAT 97; BMI 29.7
[2023-12-01] MEDS: CEFEPIME HCL 2 GM in 0.9 % SODIUM CHLORIDE 100 ML IV ×2 (04:03→09:45)
--- NOTE | 2023-12-01 05:09 | PC.NURSE ---
pt is a&ox4 and has tolerated room air throughout the shift. Lung sounds clear and bowel sounds active in all quadrants. Edema and redness noted to BLE. Dressing over left cheek has remained c/d/i. has remained at bedside throughout the night. Pt denies any pain and has no complaints at this time. Call light within reach.
[2023-12-01] MEDS: LEVOTHYROXINE 25MCG (0.025MG) TAB 25 MCG PO (06:17)
[2023-12-01] MEDS: VANCOMYCIN/WATER FOR INJ (PEG) 1.75 GM/350 ML PIGGYBACK IV (06:17)
[2023-12-01 07:00] LABS: Basophils # 0.1 K/mm3 (0-0.2); Basophils % 0.5 % (0.1-2.0); Eosinophils # 0.2 K/mm3 (0.0-0.4); Eosinophils % 2.3 % (0.1-12.0); Hematocrit 33.5 % (42.0-52.0); Hemoglobin 10.9 g/dL (14.1-18.0); Lymphocytes # 2.6 K/mm3 (0.7-4.5); Lymphocytes % 30.6 % (10-50); Mean Corpuscular HGB Conc 32.5 g/dL (31.8-35.4); Mean Corpuscular Hemoglobin 31.8 pg (27.0-31.2); Mean Corpuscular Volume 97.8 fl (80-94); Mean Platelet Volume 8.6 fl (7.4-10.4); Monocytes # 0.6 K/mm3 (0.1-1.0); Neutrophils # 5.1 K/mm3 (1.8-7.8); Neutrophils % 59.5 % (37.0-80.0); Platelet Count 257 K/mm3 (142-424); Red Blood Count 3.42 M/mm3 (4.60-6.20); White Blood Count 8.6 K/mm3 (4.8-10.8)
[2023-12-01 07:08] LABS: Chloride 103 mmol/L (98-107)
[2023-12-01 07:09] LABS: Potassium 4.2 mmoL/L (3.5-5.1); Sodium 132 mmol/L (136-145)
[2023-12-01 07:12] LABS: Anion Gap 8.2 mEq/L (5-15); Blood Urea Nitrogen 12 mg/dl (9-20); Calcium 9.2 mg/dl (8.4-10.2); Carbon Dioxide 25 mmol/L (22.0-30.0); Creatinine Clearance Estimated 82 mL/min (50-200); Estimated Glomerular Filt Rate 112 ml/min (>60); GFR (African American) 136 ML/MIN (>60); Glucose 125 mg/dl (74-100)
[2023-12-01 07:37] LABS: Hemoglobin A1C 5.9 % (4.0-6.0)
[2023-12-01 07:40] LABS: Thyroid Stimulating Hormone 1.36 uIU/mL (0.465-4.68)
[2023-12-01] MEDS: APIXABAN 5MG TABLET 5 MG PO (07:42)
[2023-12-01 07:46] VITALS: BP 143/74; PULSE 86; RESP 18; TEMP 37.2; O2SAT 98
[2023-12-01 08:12] LABS: Chol/HDL Ratio 3.5 (1-3.5); Cholesterol 128 mg/dl (140-200); HDL Cholesterol 37 mg/dl (40-60); Magnesium 1.8 mg/dl (1.6-2.3); Triglycerides 64 mg/dl (30-150); VLDL Cholesterol 13 mg/dL (0-40)
[2023-12-01 08:22] LABS: Direct LDL Cholesterol 78.57 mg/dL (100-129)
[2023-12-01 08:25] LABS: VBG Base Excess -1.3 mmol/L (-2.4-2.3); VBG HCO3 22.9 mmol/L (23-30); VBG Oxygen Saturation 93.9 % (50-70); VBG PCO2 34.7 mmol/L (35-51); VBG PH 7.44 mmol/L (7.31-7.41); VBG PO2 72.9 mmol/L (28-40)
[2023-12-01 08:36] LABS: Lactate Venous 2.2 mmol/L (0.4-2.0)
--- NOTE | 2023-12-01 09:23 | SW/DCPLANNER ---
Addendum entered by Audelia Modi 12/01/23 13:31: Updated patient information has been faxed to [facility] to resume services. Original Note: Patient is currently established [facility]. I will follow up w/ [facility] once patient is medically stable for discharge. Per MD patient may discharge home later today.
[2023-12-01 12:00] VITALS: BP 122/80; PULSE 88; RESP 17; TEMP 36.8; O2SAT 100
--- NOTE | 2023-12-01 12:25 | [facility].PTWOUND ---
Rehab Inpt Wound Evaluation Rehab IP Wound Evaluation Start: 12/01/23 08:34 Freq: ONCE Status: Active Protocol: Document 12/01/23 09:47 CARLOS (Rec: 12/01/23 12:25 CARLOS [id number]) Rehab PT Wound Assessment Subjective Subjective Pt reports he has had this diagnosis regarding his legs chronically and has had Unna boots in the past. Denies known allergy to unna boot material but reports they can be uncomfortable. Wound Left Lower Leg Edema Appearance Shiny,Red Surrounding Tissue Temperature Warm Primary Dressing Unna Boot Right Lower Leg Edema Appearance Shiny,Red Surrounding Tissue Temperature Warm Primary Dressing Unna Boot Dressing Change Patient Tolerance Tolerated Well Plan/Recommendation Comment Pt is a 68 y/o male who presents with BLE edema and erythema. Erythema is primarily in B mid lower leg ( circumferentially) and does not extend to the toes or knees on either side. Pt is 1/ 4 TTP BLE and some warmth noted at area of redness. Minor blistering on areas of redness noted. Pt reports this swelling is a chronic issue. PT applied B Unna boots per order and pt tolerated treatment well. PT assessed pt 's toe color and temp at end of wrap to ensure circulation was not compromised. PT educated pt that Unna boots should provide compression which may be mildly uncomfortable but should not be severely painful. PT instructed pt and nursing that if Unna boot causes itching, severe pain, or change in sensation, to notify PT or remove dressing. Pt would continue to benefit from skilled wound care upon d/c from [facility] through either HH or OP wound care. Eval Complexity Eval Charge Codes 26264 - Moderate Complexity PHYSICIAN CERTIFICATION: I certify the specified therapy services for Domingo Oh are required, authorized, and reviewed every 30 days.
--- NOTE | 2023-12-01 12:32 | EXP.DC.SUM ---
General Admission date:: 11/29/23 HPI HPI HPI: Mr. 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 Patient and state the patient has been feeling more weak over the last week, but no fevers, chest pain, shortness of breath, urinary symptoms. Patient also states that he has not had a bowel movement in the past 2 weeks. Denies nausea/vomiting. Patient also states he has chronic bilateral lower extremity swelling but they have been more swollen recently, with redness in the right rodríguez worsening over the past few days. Workup in the ED significant for WBC 9.9, creatinine 1.7 (baseline 0.90), BNP 77, CRP 26.1. Normal UA. CXR unremarkable. Case was discussed with ED provider and decision was made to admit patient for hypertension, cellulitis, ROBERT. Hospital Course Hospital Course Hospital Course: Mr. 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 Patient and state the patient has been feeling more weak over the last week, but no fevers, chest pain, shortness of breath, urinary symptoms. Patient also states that he has not had a bowel movement in the past 2 weeks. Denies nausea/vomiting. Patient also states he has chronic bilateral lower extremity swelling but they have been more swollen recently, with redness in the right rodríguez worsening over the past few days. Workup in the ED significant for WBC 9.9, creatinine 1.7 (baseline 0.90), BNP 77, CRP 26.1. Normal UA. CXR unremarkable. Case was discussed with ED provider and decision was made to admit patient for hypertension, cellulitis. #Hypotension, resolved #Venous stasis dermatitis ? Worsening lower extremity swelling, right rodríguez erythema with blisters over the past few days per patient. ? Home health nurse found patient to be hypotensive at home, improved with IV fluids in the ED and so did ROBERT. ? No leukocytosis, fevers, tachycardia at this time. Currently hemodynamically stable. ? CXR, UA unremarkable. ? IV vancomycin, cefepime were initially started as empiric treatment for possible cellulitis but discontinued after venous stasis dermatitis was deemed as more likely. See treatment below for venous insufficiency. #Bilateral lower extremity edema #Suspected worsening venous insufficiency ? Elevated BNP 577 on admission. No pulmonary edema on CXR. ? Lower extremity edema has been chronic but worse over the past week. ? ECHO shows LVEF 55% and normal biventricular systolic function. ? Edema is slightly worsened today. Edema seems to be unlikely due to heart failure as creatinine significantly improved from IV fluids yesterday especially normal ECHO. ? Edema seems to be more related to worsening venous insufficiency. Counseled patient on leg elevation and compression stockings at home, which patient has not been wearing. ? Cardiology consulted, ordered Unna boots. ? Will follow-up with PCP within 1 week. #Squamous cell carcinoma of left face - SCC with open wound, with some bloody drainage over entire side of left cheek. - Follows with [facility] and receiving chemotherapy. Plan to perform excision after a few rounds of chemo. #ROBERT ? Improved to baseline with fluid hydration today, 1.7 to 0.70. #History of DVT right lower extremity ? Resume home Eliquis. ? Venous Doppler negative for left lower extremity DVT . #Hypothyroidism ? Resumed home levothyroxine., Exam Data for Last 24 hours Vital signs and Labs for Last 24 Hours: Temp Pulse Resp BP Pulse Ox O2 Del Method 99 F 86 18 143/74 H 98 Room Air 12/01/23 07:46 12/01/23 07:46 12/01/23 07:46 12/01/23 07:46 12/01/23 07:46 12/01/23 09:48 Laboratory Results - last 24 hr 12/01/23 06:26: WBC 8.6, RBC 3.42 L, Hgb 10.9 L, Hct 33.5 L, MCV 97.8 H, MCH 31.8 H, MCHC 32.5, RDW 14.0, Plt Count 257, MPV 8.6, Neut % (Auto) 59.5, Lymph % (Auto) 30.6, [place] % (Auto) 7.0, Eos % (Auto) 2.3, Baso % (Auto) 0.5, Neut # (Auto) 5.1, Lymph # (Auto) 2.6, [place] # (Auto) 0.6, Eos # (Auto) 0.2, Baso # (Auto) 0.1, Sodium 132 L, Potassium 4.2, Chloride 103, Carbon Dioxide 25, Anion Gap 8.2, BUN 12 D, Creatinine 0.70 D, Estimated Creat Clear 82, Estimated GFR 112, Est GFR ( Amer) 136 D, Glucose 125 H D, Calcium 9.2, Magnesium 1.8 D, Triglycerides 64, Cholesterol 128 L, LDL Cholesterol Direct 78.57 L, VLDL Cholesterol 13, HDL Cholesterol 37 L, Cholesterol/HDL Ratio 3.5, TSH 1.36 12/01/23 06:45: Hemoglobin A1c 5.9 12/01/23 08:25: VBG pH 7.44 H, VBG pCO2 34.7 L, VBG pO2 72.9 H, VBG HCO3 22.9 L, VBG Total CO2 24.0, VBG O2 Saturation 93.9 H, VBG Base Excess -1.3, VBG Lactic Acid 2.2 H I & O for Last 24 hours: Intake & Output 11/28/23 11/29/23 11/30/23 12/01/23 23:59 23:59 23:59 23:59 Intake Total 1100 / 1500 770 / 770 Output Total 350 / 500 450 / 450 150 / 150 Balance -350 / 20 650 / 1050 620 / 620 Weight 89.811 kg 82.146 kg 80.83 kg Microbiology Reports for the Last 24 Hours: Microbiology 11/29/23 15:40 Blood Blood Culture - Preliminary NO GROWTH AFTER 24 HOURS 11/29/23 15:40 Blood Blood Culture - Preliminary NO GROWTH AFTER 24 HOURS Constitutional Constitutional: no acute distress *Routine HEENT Exam Head: Present normocephalic Eye: Present EOMI and PERRL ENT: Present mucous membranes moist *Routine Neck Exam Neck: Present supple; Absent lymphadenopathy *Routine Respiratory Exam Respiratory: Present CTA bilaterally *Routine Cardiovascular Exam Cardiovascular: Present RRR *Routine Abdominal Exam Abdominal: Present soft and normoactive bowel sounds; Absent tenderness *Routine Extremities Exam Extremities: Present edema; Absent cyanosis or clubbing Comments: Bilateral lower extremity pitting edema 3+ with overlying chronic skin changes. Squamous cell carcinoma over the left face. *Routine Skin Exam Skin: Present warm; Absent rash *Routine Neurological Exam Neurological: Present alert and oriented X3 Results Data Completed and Pending Labs on day of discharge: Labs from last 24 hours 12/01/23 12/01/23 12/01/23 08:25 06:45 06:26 WBC 8.6 RBC 3.42 L Hgb 10.9 L Hct 33.5 L MCV 97.8 H MCH 31.8 H MCHC 32.5 RDW 14.0 Plt Count 257 MPV 8.6 Neut % (Auto) 59.5 Lymph % (Auto) 30.6 [place] % (Auto) 7.0 Eos % (Auto) 2.3 Baso % (Auto) 0.5 Neut # (Auto) 5.1 Lymph # (Auto) 2.6 [place] # (Auto) 0.6 Eos # (Auto) 0.2 Baso # (Auto) 0.1 VBG pH 7.44 H VBG pCO2 34.7 L VBG pO2 72.9 H VBG HCO3 22.9 L VBG Total CO2 24.0 VBG O2 Saturation 93.9 H VBG Base Excess -1.3 VBG Lactic Acid 2.2 H Sodium 132 L Potassium 4.2 Chloride 103 Carbon Dioxide 25 Anion Gap 8.2 BUN 12 D Creatinine 0.70 D Estimated Creat Clear 82 Estimated GFR 112 Est GFR ( Amer) 136 D Glucose 125 H D Hemoglobin A1c 5.9 Calcium 9.2 Magnesium 1.8 D Triglycerides 64 Cholesterol 128 L LDL Cholesterol Direct 78.57 L VLDL Cholesterol 13 HDL Cholesterol 37 L Cholesterol/HDL Ratio 3.5 TSH 1.36 Preliminary micro results at discharge 11/29/23 15:40 Blood Culture - Preliminary Blood NO GROWTH AFTER 24 HOURS 11/29/23 15:40 Blood Culture - Preliminary Blood NO GROWTH AFTER 24 HOURS DS: Diagnosis Discharge Diagnosis (1) Chronic venous insufficiency: Status: Acute Code(s): I87.2 - Venous insufficiency (chronic) (peripheral) (2) Hypotension: Status: Resolved Code(s): I95.9 - Hypotension, unspecified (3) Aortic stenosis: Status: Acute Code(s): I35.0 - Nonrheumatic aortic (valve) stenosis Qualifiers: Cardiac valve disease etiology: nonrheumatic Qualified Code(s): I35.0 - Nonrheumatic aortic (valve) stenosis (4) Squamous cell carcinoma, face: Status: Acute Code(s): C44.320 - Squamous cell carcinoma of skin of unspecified parts of face Meds Home Medications and Allergies Home Medications ?Medication ?Instructions ?Recorded ?Confirmed ?Type apixaban 5 mg tablet (Eliquis) 5 mg PO BID 11/08/23 12/07/23 History folic acid 1 mg tablet 1 mg PO DAILY 11/08/23 12/07/23 History metronidazole 500 mg tablet 500 mg PO DAILY 11/08/23 12/07/23 History melatonin 5 mg tablet 5 mg PO HS PRN sleep #30 tabs 11/09/23 12/07/23 Rx thiamine mononitrate (vit B1) 50 25 mg PO DAILY 11/29/23 12/07/23 History mg tablet trazodone 50 mg tablet 50 mg PO DAILY 11/29/23 12/07/23 History metoprolol succinate 25 mg 25 mg PO DAILY 11/30/23 12/07/23 History tablet,extended release 24 hr polyethylene glycol 3350 17 gram 17 g PO DAILY #30 ea 12/01/23 12/07/23 Rx oral powder packet (HealthyLax) atorvastatin 10 mg tablet See Rx Instructions .Route 12/04/23 12/07/23 Rx .COMPLEX #90 ea levothyroxine 25 mcg tablet 25 mcg PO DAILY #90 tabs 12/07/23 12/07/23 Rx New Prescriptions to Start Prescriptions: polyethylene glycol 3350 [HealthyLax] Naman Messer Allergies Allergy/AdvReac Type Severity Reaction Status Date / Time No Known Allergies Allergy Verified 12/07/23 11:02 Discharge Plan Disposition Patient Disposition: Home Health Service Condition: Fair Discharge Order Discharge Orders: Discharge Order (Routine); Ordered 12/01/23 Ordered By: Naman Messer Follow up Plan Follow up with: Low Carias APRN [Primary Care Provider] - 12/07/23 10:45 am Prescriptions/Medication Reconciliation: New polyethylene glycol 3350 [HealthyLax] 17 gram Powder In Packet 17 g PO DAILY Qty: 30 0RF Continued metronidazole 500 mg tablet 500 mg PO DAILY Rx Instructions: crush med and apply to wound folic acid 1 mg tablet 1 mg PO DAILY Eliquis 5 mg tablet 5 mg PO BID melatonin 5 mg tablet 5 mg PO HS PRN (Reason: sleep) Qty: 30 2RF trazodone 50 mg tablet 50 mg PO DAILY thiamine mononitrate (vit B1) 50 mg Tablet 25 mg PO DAILY metoprolol succinate 25 mg tablet extended release 24 hr 25 mg PO DAILY Patient Comments: TAKE 1 TABLET BY MOUTH ONCE DAILY FOR HYPERTENSION Discontinued furosemide [Lasix] 40 mg tablet 40 mg PO DAILY PRN (Reason: edema) Qty: 90 3RF spironolactone 50 mg tablet 50 mg PO DAILY Qty: 90 3RF No Action levothyroxine 25 mcg tablet 25 mcg PO DAILY Qty: 90 1RF atorvastatin 10 mg tablet See Rx Instructions .ROUTE .COMPLEX Qty: 90 1RF Dose Instruction: TAKE 1 TABLET BY MOUTH DAILY FOR CHOLESTEROL Rx Instructions: TAKE 1 TABLET BY MOUTH DAILY FOR CHOLESTEROL Problem Reconciliation Problems Reviewed?: Yes Patient Discharge Instructions ACTIVITY: Continue current activity DIET: continue same diet Additional Instructions: For your venous insufficiency: Please follow-up with your home health nurse to assist with your Unna boot wraps. Keep your legs elevated a few times a day to help reduce swelling in your legs. Lasix and spironolactone can cause low blood pressures which you presented with. They are not very effective at treating your venous insufficiency. Please follow-up with your PCP to discuss whether you need to continue these. Follow-up with your PCP within 1 week. Patient Instructions: DI for Cancer Pain Syndromes, DI for Cellulitis -- Adult, DI for Acute Kidney Injury Print Language: Persian Providers Primary Care Provider: oLw Carias Provider: Phan Braun Attending Provider: Phan Braun
[2023-12-01 12:37] LABS: Reflex Lactic Add Lactic Reflex
--- NOTE | 2023-12-01 14:20 | PC.NURSE ---
pt has bilateral red shins with no open areas.
--- NOTE | 2023-12-06 10:46 | CARE MANAGER ---
Could not reach patient via phone to discuss recent discharge. Call attempted X 2, no VM option available.
== END 2023-12-01 13:39 | disposition home health service (06) ==
LOC: ER 15:10 → 2ND 16:04
PROVIDERS: Physician Assistant; Student in an Organized Health Care Education/Training Program; Admitting Provider Internal Medicine; Emergency Provider Emergency Medicine; PCP Nurse Practitioner Family; Visit Provider Internal Medicine
DX: N17.9 Acute kidney failure, unspecified; I87.2 Venous insufficiency (chronic) (peripheral); I95.9 Hypotension, unspecified; I35.0 Nonrheumatic aortic (valve) stenosis; C44.320 Squamous cell carcinoma of skin of unspecified parts of face; Z79.899 Other long term (current) drug therapy; Z79.01 Long term (current) use of anticoagulants; E03.9 Hypothyroidism, unspecified; L03.115 Cellulitis of right lower limb; L03.116 Cellulitis of left lower limb; Z86.718 Personal history of other venous thrombosis and embolism
CPT/HCPCS: 36415; 71045; 74176; 80048; 80053; 80061; 81001; 82803; 83036; 83605; 83735; 83880; 84145; 84443; 85025; 85610; 85651; 86140; 87040; 93005; 93306; 93970; 93971; 99285; G0378; J7120

== ENCOUNTER 2023-12-27 11:44 | Outpatient (CLI) | payer MEDICARE, MEDICAID, SELFPAY ==
[2023-12-27 19:39] LABS: Prostate Specific Ag Screen 0.2 ng/ml (0.0-4.0)
[2023-12-28 13:44] LABS: Alanine Aminotransferase 13 U/L (12-78); Albumin Level 3.3 g/dl (3.5-5.0); Albumin/Globulin Ratio 1.1 (1.1-1.8); Alkaline Phosphatase 88 U/L (38-126); Anion Gap 12.6 mEq/L (5-15); Aspartate Amino Transferase 21 U/L (17-59); Bilirubin,Total 0.5 mg/dl (0.2-1.3); Blood Urea Nitrogen 9 mg/dl (9-20); Calcium 9.3 mg/dl (8.4-10.2); Carbon Dioxide 23 mmol/L (22.0-30.0); Chloride 104 mmol/L (98-107); Estimated Glomerular Filt Rate 134 ml/min (>60); GFR (African American) 163 ML/MIN (>60); Globulin 3.1 g/dL (1.3-3.2); Glucose 129 mg/dl (74-100); Potassium 3.6 mmoL/L (3.5-5.1); Sodium 136 mmol/L (136-145); Total Protein,Serum 6.4 g/dl (6.3-8.2)
== END 2023-12-27 23:59 | disposition home or self-care (01) ==
LOC: LAB.DROPOF 12-28 11:44
PROVIDERS: PCP Family Medicine; Visit Provider Family Medicine
DX: Z00.00 Encounter for general adult medical examination without abnormal findings (principal); Z12.5 Encounter for screening for malignant neoplasm of prostate; R39.89 Other symptoms and signs involving the genitourinary system; R31.9 Hematuria, unspecified
CPT/HCPCS: 80053; G0103

== ENCOUNTER 2023-12-28 13:30 | Outpatient (CLI) | payer MEDICARE, MEDICAID, SELFPAY | END 2023-12-28 23:59 | disposition home or self-care (01) | LOC: LAB.DROPOF 12-29 09:36 | PROVIDERS: PCP Family Medicine; Visit Provider Family Medicine | DX: R31.9 Hematuria, unspecified (principal); R39.89 Other symptoms and signs involving the genitourinary system | CPT/HCPCS: 87086; 87088; 87186 ==

== ENCOUNTER 2024-01-03 15:12 | Outpatient (CLI) | payer MEDICARE, SELFPAY ==
--- NOTE | 2024-01-03 15:17 | US_ITS ---
FINAL REPORT CLINICAL HISTORY: URINARY RETENTION COMPARISON: None FINDINGS: ULTRASOUND BLADDER: The exam is somewhat suboptimal, secondary to under distention of the bladder. The bladder volume measures 14 cc, and the postvoid volume measures 4 cc. The patient refused further imaging. IMPRESSION: Suboptimal exam, secondary to under distention of the bladder as described above. Reviewed, Interpreted and Dictated by Howard Smith III, MD Transcribed by Khadijah Tapia Authenticated and [facility]
== END 2024-01-03 23:59 | disposition home or self-care (01) ==
LOC: RAD 15:13
PROVIDERS: PCP Family Medicine; Visit Provider Family Medicine
DX: R31.9 Hematuria, unspecified (principal); R39.89 Other symptoms and signs involving the genitourinary system
CPT/HCPCS: 76857